=== PATIENT | male | born 1945 | race Caucasian/White ===

== ENCOUNTER → 2017-10-10 | Outpatient (CLI) | payer MEDICARE, OTHER ==
--- NOTE | 2017-10-10 18:46 | CT ---
EXAMINATION TYPE: CT abdomen pelvis wo con DATE OF EXAM: 10/10/2017 COMPARISON: NONE HISTORY: Diarrhea x1 month. CT DLP: 952 mGycm Automated exposure control for dose reduction was used. TECHNIQUE: Helical acquisition of images was performed from the lung bases through the pelvis. FINDINGS: There is coarse interstitial density at the posterior lung bases in the mainly the subpleural region with emphysematous bulla as well. There is no pleural effusion. Liver shows no focal defect. Gallbladder is contracted. Spleen appears normal. There is no pancreatic mass. There is no adrenal mass. Kidneys have normal size and contour. There is no hydronephrosis. Th ere is no retroperitoneal adenopathy. There is no ascites. Abdominal aorta is atheromatous. I see no intestinal wall thickening. There are no dilated loops. There are multiple diverticula in th e sigmoid colon. Prostate is enlarged. Bladder distends fairly smoothly. There is no evidence of dive rticulitis. There is no sign of free air. There are some spondylotic changes in the lumbar spine. There is 10% an terior wedging of T12 vertebral body that is probably old. Appendix is not seen. There is no sign of appendicitis. IMPRESSION: EMPHYSEMA AND PULMONARY INTERSTITIAL FIBROSIS. THERE IS SOME SIGMOID DIVERTICULOSIS WITHOUT SIGN OF DIVERTICULITIS. OLD MILD T12 COMPRESSION FRACTUR E. ATHEROSCLEROTIC VASCULAR DISEASE. 1 CM CORTICAL CYST IN THE POSTERIOR RIGHT KIDNEY NOTED.
== END | disposition home or self-care (01) ==
LOC: RADCTMAIN 18:09
PROVIDERS: ATTEND Family Medicine
DX: K57.30 Diverticulosis of large intestine without perforation or abscess without bleeding (principal); N28.1 Cyst of kidney, acquired
CPT/HCPCS: 74176

== ENCOUNTER → 2017-10-22 | Outpatient (CLI) | payer MEDICARE, OTHER ==
--- NOTE | 2017-10-22 15:32 | NM ---
EXAMINATION TYPE: NM hepatobiliary w EF DATE OF EXAM: 10/22/2017 COMPARISON: CT abdomen pelvis 10/10/2017 HISTORY: Cholelithiasis, K 80.80 TECHNIQUE: After the intravenous administration of 5.4 mCi Tc 99m Mebrofenin hepatobiliary scintigrap hy is performed. Immediate images post injection. FINDINGS: There is satisfactory initial accumulation of tracer by the liver. The gallbladder is visualized wit hin 6 minutes. The small bowel activity is noted within 10 minutes. At one hour 8 ounces of oral en sure plus is given to mimic CCK and gallbladder ejection fraction is calculated at 53 %, in the adam l range. Therefore there is no scintigraphic evidence of cystic or common bile duct obstruction to s uggest acute cholecystitis or gallbladder dyskinesia. IMPRESSION: Exam is within normal limits.
== END | disposition home or self-care (01) ==
LOC: RADNMMAIN 12:34
PROVIDERS: ATTEND Family Medicine
DX: K80.80 Other cholelithiasis without obstruction (principal); K58.9 Irritable bowel syndrome, unspecified
CPT/HCPCS: 78226; A9537

== ENCOUNTER 2017-11-08 10:08 | Day surgery (SDC) | payer MEDICARE, OTHER ==
[2017-11-07 11:22] VITALS: BMI 29.0
[2017-11-08 12:18] VITALS: TEMP 98.4
[2017-11-08] MEDS ORDERED: LACTATED RINGERS 1,000 ML IV ONE (12:25)
[2017-11-08] MEDS ORDERED: LIDOCAINE 1% 20 ML VIAL (10MG/ML) FOR IV START INTRADERMA ONE (12:26)
[2017-11-08] MEDS ORDERED: PROPOFOL 10 MG/ML 20 ML VIAL IV ONE (12:39)
--- NOTE | 2017-11-08 12:58 | P.PCN ---
Date of Procedure: 11/08/17 Procedure(s) Performed: BRIEF HISTORY: Patient is a 72-year-old pleasant white male scheduled for an elective colonoscopy as a part of evaluation of chronic diarrhea for the last 2 months duration. She has bowel movements anywhere from 4-5 a day which are loose to watery in consistency. He did have stool studies that were negative. CT of the abdomen and pelvis was unremarkable. He is hence scheduled for colonoscopy to evaluate further. PROCEDURE PERFORMED: Colonoscopy with biopsy. PREOPERATIVE DIAGNOSIS: Chronic diarrhea of 2 months duration. IV sedation per Anesthesia. PROCEDURE: After informed consent was obtained, the patient, was brought into the endoscopy unit. IV sedation was administered by Anesthesia under continuous monitoring. Digital rectal examination was normal. Initially the Olympus CF- 160 flexible video colonoscope was then inserted in the rectum, gradually advanced into the cecum without any difficulty. Careful examination was performed as the scope was gradually being withdrawn. Ileocecal valve and the appendiceal orifice were visualized and appeared normal. Prep was excellent. Mucosa of the cecum, ascending colon, transverse colon, descending colon, sigmoid colon, and rectum appeared normal. There was a 5 mL polyp in the sigmoid colon that was removed by biopsy. Random biopsies were done from ascending and descending colon to rule out microscopic/collagenous colitis. Retroflexion was performed in the rectum and no lesions were seen. Scattered sigmoid diverticulosis seen. The patient tolerated the procedure well. IMPRESSION: 5 mm above colon polyp status post removal by biopsy Scattered similar diverticulosis Rest of the colon appeared normal RECOMMENDATIONS: Findings of this examination were discussed with the patient as well as his family. He was advised to follow with the biopsy results. He' ll be seen in office in 2 weeks..
[2017-11-08 13:15] VITALS: BP 108/72; PULSE 70; RESP 18
== END 2017-11-08 13:45 | disposition home or self-care (01) ==
LOC: ORWHC2ENDO 10:08
PROVIDERS: ATTEND Internal Medicine Gastroenterology
DX: K52.832 Lymphocytic colitis (principal); K63.0 Abscess of intestine; K52.839 Microscopic colitis, unspecified; K62.89 Other specified diseases of anus and rectum; D12.5 Benign neoplasm of sigmoid colon; K57.30 Diverticulosis of large intestine without perforation or abscess without bleeding; I25.2 Old myocardial infarction; E78.5 Hyperlipidemia, unspecified; F41.9 Anxiety disorder, unspecified; F32.9 Major depressive disorder, single episode, unspecified; Z79.82 Long term (current) use of aspirin; Z79.899 Other long term (current) drug therapy
CPT/HCPCS: 88305; 45380; J2704

== ENCOUNTER → 2017-11-08 | Outpatient (CLI) | payer MEDICARE, OTHER ==
[2017-11-08 17:26] LABS: Gliadin AB IgA, Unit 0.4 U/mL
== END | disposition home or self-care (01) ==
LOC: LABWHC1 10:00
PROVIDERS: ATTEND Internal Medicine Gastroenterology
DX: K52.9 Noninfective gastroenteritis and colitis, unspecified (principal)
CPT/HCPCS: 36415; 83516; 85652; 86140

== ENCOUNTER → 2018-02-21 | Outpatient (CLI) | payer MEDICARE, OTHER | END | disposition home or self-care (01) | LOC: LABWHC1 10:17 | PROVIDERS: ATTEND Urology | DX: C61 Malignant neoplasm of prostate (principal) | CPT/HCPCS: 36415; 84153 ==

== ENCOUNTER 2018-03-25 16:19 | Inpatient (IN) | payer MEDICARE, OTHER ==
[2018-03-25] MEDS ORDERED: SODIUM CHLORIDE 0.9% 1,000 ML IV ONE (18:18)
--- NOTE | 2018-03-25 18:20 | ED ---
General Adult HPI - General Chief complaint: Shortness of Breath Stated complaint: Sent by PCP LASHAUN Time Seen by Provider: 03/25/18 17:26 Source: patient Mode of arrival: ambulatory Limitations: no limitations - History of Present Illness Initial comments: Gigi is a 72-year-old male who presents to the emergency department today for evaluation of multiple complaints. The patient reports that he is progressively become more weak, fatigued, lost his appetite, 15 pound weight loss - patient was seen by his PCP today and noted to be hypoxic with SpO2 of 86 % Patient reports that throughout the course of this week he has had intermittent fevers up to 102 at home, he said a minimally productive cough and felt very fatigued. He states he hasn't been eating or drinking well throughout the week. He states that Saturday was his 's birthday and he took her to eat at a restaurant usually can eat his entire meal but didn't even finish half of it and had to bring the rest home which he never ate because he just doesn't feel like eating or even getting out of bed. She denies any nausea, vomiting or abdominal pain but states he just doesn't feel like eating. He denies any change in bowel or bladder habits. He denies any chest pain but does feel that his heart is racing, and does have a cough but denies much shortness of breath. - Related Data Home Medications Medication Instructions Recorded Confirmed Aspirin [Adult Low Dose Aspirin EC] 81 mg PO DAILY 11/07/17 03/25/18 Citalopram Hydrobromide [CeleXA] 20 mg PO DAILY 11/07/17 03/25/18 Multivitamins, Thera [Multivitamin 1 tab PO DAILY 11/07/17 03/25/18 (formulary)] Simvastatin [Zocor] 20 mg PO DAILY 11/07/17 03/25/18 Temazepam [Restoril] 15 mg PO HS 11/07/17 03/25/18 Allergies Allergy/AdvReac Type Severity Reaction Status Date / Time No Known Allergies Allergy Verified 03/25/18 17:32 Review of Systems ROS Statement: Those systems with pertinent positive or pertinent negative responses have been documented in the HPI. ROS Other: All systems not noted in ROS Statement are negative. Constitutional: Reports: fever, chills ENT: Denies: epistaxis Respiratory: Reports: cough, dyspnea Cardiovascular: Reports: palpitations. Denies: chest pain Endocrine: Reports: fatigue Gastrointestinal: Reports: other (Anorexia). Denies: abdominal pain, nausea, vomiting Genitourinary: Denies: urgency, dysuria Musculoskeletal: Reports: back pain (Chronic) Skin: Denies: rash Neurological: Reports: weakness (Generalized). Denies: headache Psychiatric: Denies: anxiety Hematological/Lymphatic: Denies: easy bleeding, easy bruising Past Medical History Past Medical History: Cancer, Hyperlipidemia, Myocardial Infarction ([place]), Prostate Disorder Additional Past Medical History / Comment(s): diarrhea for past couple months, prostate cancer Last Myocardial Infarction Date:: 1982 History of Any Multi-Drug Resistant Organisms: None Reported Past Surgical History: Appendectomy Additional Past Surgical History / Comment(s): colonoscopy Past Anesthesia/Blood Transfusion Reactions: No Reported Reaction Past Psychological History: No Psychological Hx Reported Smoking Status: Former smoker - Past Family History Father Family Medical History: Cancer General Exam Limitations: no limitations General appearance: alert Head exam: Present: atraumatic, normocephalic Eye exam: Present: PERRL ENT exam: Present: normal exam Neck exam: Present: normal inspection Respiratory exam: Present: other (Tachypnea with crackles at bilateral bases) Cardiovascular Exam: Present: tachycardia GI/Abdominal exam: Present: soft. Absent: distended Rectal exam: Present: deferred Extremities exam: Present: normal inspection, normal capillary refill. Absent: pedal edema Back exam: Present: full ROM Psychiatric exam: Present: normal affect, normal mood Skin exam: Present: warm, dry Course Vital Signs 03/25/18 03/25/18 03/25/18 17:10 18:48 19:15 Temperature 99.0 F 100.4 F H Pulse Rate 91 90 90 Respiratory 18 18 18 Rate Blood Pressure 154/89 134/67 135/72 O2 Sat by Pulse 86 L 96 94 L Oximetry 03/25/18 03/25/18 20:19 22:05 Temperature 100.7 F H 99.0 F Pulse Rate 86 79 Respiratory 18 18 Rate Blood Pressure 139/76 134/68 O2 Sat by Pulse 95 95 Oximetry EKG Findings - EKG Comments: EKG Findings:: EKG - Rate 84, rhythm is normal sinus, normal axis,, NC 170, prolonged QRS 122, QTc 451. No evidence of acute ischemia or infarction. Procedures - Sepsis Sepsis Focused Exam #1 Time Sepsis Criteria Met: 19:44 Sepsis Focused Exam Complete: Yes Vital Signs & RN Notes Reviewed: Yes Capillary Refill: < 2 Seconds: Fingers, Toes Peripheral Pulses: Normal: Radial (R), Radial (L), Posterior Tibialis (R), Posterior Tibialis (L), Dorsalis Pedis (R), Dorsalis Pedis (L) Skin Color: Normal for Patient Cardiovascular Exam: tachycardia Medical Decision Making - Medical Decision Making The patient was seen and evaluated, history was obtained from the patient, review of medical record and call from his primary care physician With worsening fatigue, weight loss him and now has shortness of breath and is noted to be hypoxic to 86% on room air. Patient was started on supplemental oxygen at 2 L and noted to have improvement to 89-94%. Patient does have some oxygen desaturation with speaking but denies any shortness of breath. A broad range of labs and imaging were ordered for evaluation. 19:44 patient's labs and imaging were reviewed. Noted the patient has a right upper lobe pneumonia. In addition the patient's noted to have a leukocytosis and is now febrile with a fever of 100.4. Rocephin and azithromycin were ordered for treatment of community-acquired pneumonia At this time the patient has leukocytosis, fever and pneumonia as a source of infection. Considering the patient's tachycardia and hypoxia I will evaluate for a pulmonary embolism Patient care was discussed with Dr. Rodriguez agrees with plan for admission for sepsis secondary to community-acquired pneumonia, at the time of admission the CTA was not completed but I will follow up on it. UA reveals extensive emphysema but no evidence of pulmonary embolism - Lab Data Result diagrams: 03/25/18 17:40 03/25/18 17:40 Lab Results 03/25/18 03/25/18 03/25/18 Range/Units 17:40 17:40 17:40 WBC 11.7 H (3.8-10.6) k/uL RBC 5.65 (4.30-5.90) m/uL Hgb 16.7 (13.0-17.5) gm/dL Hct 50.2 (39.0-53.0) % MCV 88.8 (80.0-100.0) fL MCH 29.5 (25.0-35.0) pg MCHC 33.2 (31.0-37.0) g/dL RDW 13.1 (11.5-15.5) % Plt Count 466 H (150-450) k/uL Neutrophils % 71 % Lymphocytes % 17 % Monocytes % 7 % Eosinophils % 2 % Basophils % 1 % Neutrophils # 8.3 H (1.3-7.7) k/uL Lymphocytes # 2.0 (1.0-4.8) k/uL Monocytes # 0.8 (0-1.0) k/uL Eosinophils # 0.3 (0-0.7) k/uL Basophils # 0.1 (0-0.2) k/uL PT (9.0-12.0) sec INR (<1.2) APTT (22.0-30.0) sec Sodium 139 (137-145) mmol/L Potassium 4.9 (3.5-5.1) mmol/L Chloride 100 (98-107) mmol/L Carbon Dioxide 24 (22-30) mmol/L Anion Gap 15 mmol/L BUN 16 (9-20) mg/dL Creatinine 0.90 (0.66-1.25) mg/dL Est GFR (CKD-EPI)AfAm >90 (>60 ml/min/1.73 sqM) Est GFR (CKD-EPI)NonAf 86 (>60 ml/min/1.73 sqM) Glucose 91 (74-99) mg/dL Plasma Lactic Acid Nicko 1.4 (0.7-2.0) mmol/L Calcium 9.4 (8.4-10.2) mg/dL Magnesium 2.1 (1.6-2.3) mg/dL Total Bilirubin 0.6 (0.2-1.3) mg/dL AST 30 (17-59) U/L ALT 47 (21-72) U/L Alkaline Phosphatase 80 (38-126) U/L Troponin I (0.000-0.034) ng/mL NT-Pro-B Natriuret Pep pg/mL Total Protein 7.9 (6.3-8.2) g/dL Albumin 4.3 (3.5-5.0) g/dL Urine Color Urine Appearance (Clear) Urine pH (5.0-8.0) Ur Specific Perry (1.001-1.035) Urine Protein (Negative) Urine Glucose (UA) (Negative) Urine Ketones (Negative) Urine Blood (Negative) Urine Nitrite (Negative) Urine Bilirubin (Negative) Urine Urobilinogen (<2.0) mg/dL Ur Leukocyte Esterase (Negative) 03/25/18 03/25/18 03/25/18 Range/Units 17:40 17:40 17:40 WBC (3.8-10.6) k/uL RBC (4.30-5.90) m/uL Hgb (13.0-17.5) gm/dL Hct (39.0-53.0) % MCV (80.0-100.0) fL MCH (25.0-35.0) pg MCHC (31.0-37.0) g/dL RDW (11.5-15.5) % Plt Count (150-450) k/uL Neutrophils % % Lymphocytes % % Monocytes % % Eosinophils % % Basophils % % Neutrophils # (1.3-7.7) k/uL Lymphocytes # (1.0-4.8) k/uL Monocytes # (0-1.0) k/uL Eosinophils # (0-0.7) k/uL Basophils # (0-0.2) k/uL PT 10.8 (9.0-12.0) sec INR 1.1 (<1.2) APTT 24.5 (22.0-30.0) sec Sodium (137-145) mmol/L Potassium (3.5-5.1) mmol/L Chloride (98-107) mmol/L Carbon Dioxide (22-30) mmol/L Anion Gap mmol/L BUN (9-20) mg/dL Creatinine (0.66-1.25) mg/dL Est GFR (CKD-EPI)AfAm (>60 ml/min/1.73 sqM) Est GFR (CKD-EPI)NonAf (>60 ml/min/1.73 sqM) Glucose (74-99) mg/dL Plasma Lactic Acid Nicko (0.7-2.0) mmol/L Calcium (8.4-10.2) mg/dL Magnesium (1.6-2.3) mg/dL Total Bilirubin (0.2-1.3) mg/dL AST (17-59) U/L ALT (21-72) U/L Alkaline Phosphatase (38-126) U/L Troponin I <0.012 (0.000-0.034) ng/mL NT-Pro-B Natriuret Pep 129 pg/mL Total Protein (6.3-8.2) g/dL Albumin (3.5-5.0) g/dL Urine Color Urine Appearance (Clear) Urine pH (5.0-8.0) Ur Specific Perry (1.001-1.035) Urine Protein (Negative) Urine Glucose (UA) (Negative) Urine Ketones (Negative) Urine Blood (Negative) Urine Nitrite (Negative) Urine Bilirubin (Negative) Urine Urobilinogen (<2.0) mg/dL Ur Leukocyte Esterase (Negative) 03/25/18 Range/Units 19:18 WBC (3.8-10.6) k/uL RBC (4.30-5.90) m/uL Hgb (13.0-17.5) gm/dL Hct (39.0-53.0) % MCV (80.0-100.0) fL MCH (25.0-35.0) pg MCHC (31.0-37.0) g/dL RDW (11.5-15.5) % Plt Count (150-450) k/uL Neutrophils % % Lymphocytes % % Monocytes % % Eosinophils % % Basophils % % Neutrophils # (1.3-7.7) k/uL Lymphocytes # (1.0-4.8) k/uL Monocytes # (0-1.0) k/uL Eosinophils # (0-0.7) k/uL Basophils # (0-0.2) k/uL PT (9.0-12.0) sec INR (<1.2) APTT (22.0-30.0) sec Sodium (137-145) mmol/L Potassium (3.5-5.1) mmol/L Chloride (98-107) mmol/L Carbon Dioxide (22-30) mmol/L Anion Gap mmol/L BUN (9-20) mg/dL Creatinine (0.66-1.25) mg/dL Est GFR (CKD-EPI)AfAm (>60 ml/min/1.73 sqM) Est GFR (CKD-EPI)NonAf (>60 ml/min/1.73 sqM) Glucose (74-99) mg/dL Plasma Lactic Acid Nicko (0.7-2.0) mmol/L Calcium (8.4-10.2) mg/dL Magnesium (1.6-2.3) mg/dL Total Bilirubin (0.2-1.3) mg/dL AST (17-59) U/L ALT (21-72) U/L Alkaline Phosphatase (38-126) U/L Troponin I (0.000-0.034) ng/mL NT-Pro-B Natriuret Pep pg/mL Total Protein (6.3-8.2) g/dL Albumin (3.5-5.0) g/dL Urine Color Yellow Urine Appearance Clear (Clear) Urine pH 5.5 (5.0-8.0) Ur Specific Perry 1.012 (1.001-1.035) Urine Protein Negative (Negative) Urine Glucose (UA) Negative (Negative) Urine Ketones Negative (Negative) Urine Blood Negative (Negative) Urine Nitrite Negative (Negative) Urine Bilirubin Negative (Negative) Urine Urobilinogen <2.0 (<2.0) mg/dL Ur Leukocyte Esterase Negative (Negative) Disposition Clinical Impression: CAP (community acquired pneumonia), Sepsis, Emphysema lung, Hypoxia Disposition: ADMITTED IP TO THIS HOSP Referrals: Real Loving DO [Primary Care Provider] - 1-2 days Decision Time: 20:30
[2018-03-25 18:46] LABS: Basophils # (A) 0.1 k/uL (0-0.2); Basophils % (A) 1 %; Eosinophils # (A) 0.3 k/uL (0-0.7); Eosinophils % (A) 2 %; HCT 50.2 % (39.0-53.0); HGB 16.7 gm/dL (13.0-17.5); Lymphocytes % (A) 17 %; MCH 29.5 pg (25.0-35.0); MCHC 33.2 g/dL (31.0-37.0); MCV 88.8 fL (80.0-100.0); Mean Platelet Volume 6.4; Monocytes # (A) 0.8 k/uL (0-1.0); Monocytes % (A) 7 %; Neutrophils # (A) 8.3 k/uL (1.3-7.7); Neutrophils % (A) 71 %; Platelet Count 466 k/uL (150-450); RBC 5.65 m/uL (4.30-5.90); RDW 13.1 % (11.5-15.5); WBC 11.7 k/uL (3.8-10.6)
--- NOTE | 2018-03-25 18:50 | XR ---
EXAMINATION TYPE: XR chest 2V DATE OF EXAM: 03/25/2018 COMPARISON: NONE HISTORY: Difficulty breathing TECHNIQUE: Frontal and lateral views of the chest are obtained. FINDINGS: There is extensive coarse interstitial pulmonary infiltrates. There is some cholestatic d ensity in the right upper lobe. There is no heart failure. Heart size is normal. There is no pleural effusion. There are chest leads. Bony thorax is intact. IMPRESSION: Extensive pulmonary interstitial fibrosis. Acute pneumonia in the right upper lobe is po ssible.
[2018-03-25 18:57] LABS: INR 1.1 (<1.2); Partial Thromboplastin Time 24.5 sec (22.0-30.0); Prothrombin Time 10.8 sec (9.0-12.0)
[2018-03-25 19:06] LABS: ALT 47 U/L (21-72); AST 30 U/L (17-59); Albumin 4.3 g/dL (3.5-5.0); Alkaline Phosphatase 80 U/L (38-126); Anion Gap 15 mmol/L; Blood Urea Nitrogen 16 mg/dL (9-20); Calcium 9.4 mg/dL (8.4-10.2); Carbon Dioxide 24 mmol/L (22-30); Chloride 100 mmol/L (98-107); Glucose 91 mg/dL (74-99); Magnesium 2.1 mg/dL (1.6-2.3); Potassium 4.9 mmol/L (3.5-5.1); Sodium 139 mmol/L (137-145); Total Bilirubin 0.6 mg/dL (0.2-1.3); Total Protein 7.9 g/dL (6.3-8.2)
[2018-03-25 19:36] LABS: Appearance,Urine Clear (Clear); Bilirubin,Urine Negative (Negative); Blood,Urine Negative (Negative); Color,Urine Yellow; Glucose,Urine (UA) Negative (Negative); Ketones,Urine Negative (Negative); Leukocyte Esterase,Urine Negative (Negative); Nitrite,Urine Negative (Negative); PH, Urine 5.5 (5.0-8.0); Protein,Urine Negative (Negative); Specific Gravity,Urine 1.012 (1.001-1.035); Urobilinogen,Urine <2.0 mg/dL (<2.0)
[2018-03-25] MEDS ORDERED: AZITHROMYCIN 500 MG in DEXTROSE 5% IN WATER 250 ML IVPB STA ×2 (19:46)
[2018-03-25] MEDS ORDERED: cefTRIAXone IN SWFI 1,000 MG/10 ML SYRINGE IVP STA (19:46)
[2018-03-25] MEDS ORDERED: ACETAMINOPHEN TAB 500 MG TAB PO STA (20:25)
--- NOTE | 2018-03-25 20:53 | CT ---
EXAMINATION TYPE: CT chest angio for PE DATE OF EXAM: 03/25/2018 COMPARISON: None HISTORY: Difficulty breathing x1 week. CT DLP: 354.1 mGycm Automated exposure control for dose reduction was used. CONTRAST: CT Chest for pulmonary embolism performed with with IV Contrast, patient injected with 66ml mL of Iso pilo 370. FINDINGS: There are 3-D post processed images. There is extensive pulmonary interstitial fibrosis. There is pulmonary emphysema. There is some coale scent density in the lateral right upper lobe with extensive emphysema. There are enlarged paratracheal and bronchial lymph nodes that measure up to 2.2 cm. There is no sign of aortic aneurysm or dissection. There is normal contrast opacification of the pulmonary arteries. I see no filling defect. There is no pericardial effusion. There is no pleural effusion. There is small hiatal hernia. There i s some spurring in the thoracic spine. IMPRESSION: No evidence of pulmonary embolism. Advanced pulmonary interstitial fibrosis and emphysema.
[2018-03-25] MEDS ORDERED: ACETAMINOPHEN TAB 325 MG TAB PO PRN (22:54)
[2018-03-25] MEDS ORDERED: IBUPROFEN 400 MG TAB PO PRN (22:54)
[2018-03-25] MEDS ORDERED: NALOXONE 0.4 MG/ML 1 ML VIAL IV PRN (22:54)
[2018-03-25] MEDS ORDERED: SODIUM CHLORIDE 0.9% 1,000 ML IV SCH (23:00)
[2018-03-26 06:28] VITALS: BMI 27.0
[2018-03-26] MEDS ORDERED: IPRATROPIUM-ALBUTEROL 3 ML NEB INHALATION PRN (09:15)
[2018-03-26 09:39] LABS: Basophils # (A) 0.1 k/uL (0-0.2); Basophils % (A) 1 %; Eosinophils # (A) 0.3 k/uL (0-0.7); Eosinophils % (A) 3 %; HCT 44.2 % (39.0-53.0); HGB 15.1 gm/dL (13.0-17.5); Lymphocytes # (A) 1.4 k/uL (1.0-4.8); Lymphocytes % (A) 14 %; MCH 30.6 pg (25.0-35.0); MCHC 34.1 g/dL (31.0-37.0); MCV 89.8 fL (80.0-100.0); Mean Platelet Volume 6.5; Monocytes # (A) 0.5 k/uL (0-1.0); Monocytes % (A) 5 %; Neutrophils # (A) 7.7 k/uL (1.3-7.7); Neutrophils % (A) 77 %; Platelet Count 431 k/uL (150-450); RBC 4.93 m/uL (4.30-5.90); RDW 13.3 % (11.5-15.5); WBC 9.9 k/uL (3.8-10.6)
[2018-03-26 09:44] LABS: Anion Gap 10 mmol/L; Blood Urea Nitrogen 13 mg/dL (9-20); Calcium 8.7 mg/dL (8.4-10.2); Carbon Dioxide 23 mmol/L (22-30); Chloride 105 mmol/L (98-107); Glucose 149 mg/dL (74-99); Potassium 4.6 mmol/L (3.5-5.1); Sodium 138 mmol/L (137-145)
[2018-03-26] MEDS: cefTRIAXone IN SWFI 1,000 MG/10 ML SYRINGE IVP SCH (10:46)
[2018-03-26] MEDS: AZITHROMYCIN 500 MG TAB PO SCH (10:46)
[2018-03-26] MEDS: CITALOPRAM HYDROBROMIDE 20 MG TAB PO SCH (10:46)
[2018-03-26] MEDS: methylPREDNISolone SOD SUCCI 40 MG/ML 1 ML VIAL IV SCH ×2 (10:46→16:31)
--- NOTE | 2018-03-26 11:21 | P.HPIM ---
History of Present Illness H&P Date: 03/26/18 Chief Complaint: Fatigue, weakness, weight loss This is a 72-year-old male patient of Dr. Loving with past medical history of prostate cancer monitored by Dr. Huynh, myocardial infarction 40 years ago with no stent placement, hyperlipidemia, depression, remote history of tobacco use. Patient stopped taking his medication for lipids. Patient states that he has not been feeling well feeling tired and exhausted. He has had fever 1-2 days before he came in the hospital. He complains of shortness of breath when he walks to the mailbox which is been going on for a while. He denies ever being diagnosed with COPD or asthma. He has also had a weight loss of 15 pounds. Patient went to see his primary care physician today and was found to have a low pulse ox of 86% and was sent into [facility] emergency center for evaluation. His pulse ox was 86% on room air. EKG was a sinus rhythm with no acute ST-T wave changes. White count 11.7, lactic acid 1.4. ProBNP 129, troponin was negative. Urinalysis was negative. Chest x-ray showed extensive pulmonary interstitial fibrosis. Acute pneumonia in the right upper lobe is possible. CT angiogram of the chest revealed no evidence of pulmonary embolism. Advanced pulmonary interstitial fibrosis and emphysema. Patient was given a dose of azithromycin and ceftriaxone and admitted to the [facility] floor and consult requested with pulmonary medicine. Review of Systems All systems: negative Constitutional: Reports anorexia, Reports chills, Reports fatigue, Reports fever , Reports lethargy, Reports malaise, Reports poor appetite, Reports weight loss Eyes: denies blurred vision, denies pain Ears, nose, mouth and throat: Denies dental pain, Denies headache, Denies mouth pain, Denies sore throat, Denies vertigo Cardiovascular: Reports decreased exercise tolerance, Reports dyspnea on exertion, Denies chest pain, Denies leg edema, Denies shortness of breath, Denies syncope Respiratory: Reports cough, Reports dyspnea, Denies excessive sputum, Denies home oxygen, Denies wheezing Gastrointestinal: Reports loss of appetite, Denies abdominal pain, Denies diarrhea, Denies nausea, Denies vomiting Musculoskeletal: Denies myalgias Integumentary: Denies pruritus, Denies rash, Denies wounds Neurological: Denies numbness, Denies weakness Psychiatric: Denies anxiety, Denies depression Endocrine: Denies fatigue, Denies weight change Past Medical History Past Medical History: Cancer, Hyperlipidemia, Myocardial Infarction ([place]), Prostate Disorder Additional Past Medical History / Comment(s): prostate cancer, sees DR Huynh currently Last Myocardial Infarction Date:: 1982 History of Any Multi-Drug Resistant Organisms: None Reported Past Surgical History: Appendectomy Additional Past Surgical History / Comment(s): colonoscopy with Dr. Downs Past Anesthesia/Blood Transfusion Reactions: No Reported Reaction Past Psychological History: No Psychological Hx Reported, Depression Smoking Status: Former smoker Past Alcohol Use History: None Reported Additional Past Alcohol Use History / Comment(s): Patient was a smoker one pack per day for 20 years ago at about 35 years ago. He denies any marijuana or alcohol use. He is retired but works part-time. He is and lives at home with his . Past Drug Use History: None Reported - Past Family History Father Family Medical History: Cancer Additional Family Medical History / Comment(s): Father at age 65 from lymphoma. Mother Additional Family Medical History / Comment(s): Mother at age 85 with history of coronary artery disease. Patient has one sister who has had breast cancer. Patient has 1 son and 1 daughter with no major medical problems. Medications and Allergies Home Medications Medication Instructions Recorded Confirmed Type Aspirin [Adult Low Dose Aspirin EC] 81 mg PO DAILY 11/07/17 03/25/18 History Citalopram Hydrobromide [CeleXA] 20 mg PO DAILY 11/07/17 03/25/18 History Multivitamins, Thera [Multivitamin 1 tab PO DAILY 11/07/17 03/25/18 History (formulary)] Simvastatin [Zocor] 20 mg PO DAILY 11/07/17 03/25/18 History Temazepam [Restoril] 15 mg PO HS 11/07/17 03/25/18 History Allergies Allergy/AdvReac Type Severity Reaction Status Date / Time No Known Allergies Allergy Verified 03/25/18 17:32 Physical Exam Vitals: Vital Signs Temp Pulse Pulse Resp BP BP Pulse Ox 03/26/18 05:55 98.0 F 76 24 135/72 95 03/25/18 22:42 80 18 139/67 96 03/25/18 22:05 99.0 F 79 18 134/68 95 03/25/18 20:19 100.7 F H 86 18 139/76 95 03/25/18 19:15 100.4 F H 90 18 135/72 94 L 03/25/18 18:48 90 18 134/67 96 03/25/18 17:10 99.0 F 91 18 154/89 86 L Intake and Output 03/25/18 03/26/18 03/26/18 22:59 06:59 14:59 Other: # Voids 2 Weight 84.822 kg 83 kg Gen: This is a 72-year-old male. He is in bed and appears to be comfortable. No respiratory distress is noted. O2 is in place by nasal cannula. HEENT: Head is atraumatic, normocephalic. Pupils equal, round. Sclerae is anicteric. NECK: Supple. No JVD. No lymphadenopathy. No thyromegaly. LUNGS: Diminished. No intercostal retractions. HEART: Regular rate and rhythm. No murmur. ABDOMEN: Soft. Bowel sounds are present. No masses. No tenderness. EXTREMITIES: No pedal edema. No calf tenderness. NEUROLOGICAL: Patient is awake, alert and oriented x3. Cranial nerves 2 through 12 are grossly intact. Results CBC & Chem 7: 03/26/18 08:45 03/26/18 08:45 Labs: Abnormal Lab Results - Last 24 Hours (Table) 03/25/18 Range/Units 17:40 WBC 11.7 H (3.8-10.6) k/uL Plt Count 466 H (150-450) k/uL Neutrophils # 8.3 H (1.3-7.7) k/uL Thrombosis Risk Factor Assmnt - DVT/VTE Prophylaxis DVT/VTE Prophylaxis: Pharmacologic Prophylaxis ordered - Choose All That Apply Any of the Below Risk Factors Present?: Yes Other Risk Factors: Yes Each Risk Factor Represents 2 Points: Age 61-74 years Thrombosis Risk Factor Assessment Total Risk Factor Score: 2 Thrombosis Risk Factor Assessment Level: Low Risk Assessment and Plan Plan: 1. Acute hypoxic respiratory failure secondary to possible right upper lobe pneumonia, pulmonary fibrosis, possible COPD. Patient will be started on is a 3 January 12 and ceftriaxone, DuoNeb treatments, Solu-Medrol IV. Consult with Dr. Sanderson. 2. Advanced pulmonary interstitial fibrosis on CAT scan a previously diagnosed. Consult with pulmonary medicine continue as in #1. 3. Hyperlipidemia. Patient will be resumed on statin. 4. History of myocardial infarction many years ago. Aspirin resumed. 5. Depression, recurrent. Patient resumed on Celexa. 6. Insomnia. Restoril 50 mg at bedtime. 7. Recent unexplained weight loss of 15 pounds, possibly related to interstitial lung fibrosis and COPD. Patient may need further workup as an outpatient to rule out any underlying malignancy. 8. DVT prophylaxis. Heparin subcu. 9. GI prophylaxis. Pepcid. Patient will be admitted to the hospital for a minimum of 2 night stay. Discharge plan: Return home Impression and plan of care have been directed as dictated by the signing physician. Jodee Joya nurse practitioner acting as scribe for signing physician.
[2018-03-26] MEDS: HEPARIN SODIUM,PORCINE 5,000 UNIT/ML 1 ML VIAL SQ SCH (16:31)
--- NOTE | 2018-03-26 19:28 | P.CNPUL ---
History of Present Illness Consult date: 03/26/18 Reason for consult: cough, pneumonia, other Chief complaint: Weakness, fever, fatigue, productive cough History of present illness: Mr. De La Torre is a 72-year-old white male patient of Dr. Dutton who presented to the emergency department on 03/25/2018 with complaints of a week's worth of constitutional symptoms such as progressive weakness, fatigue, loss of appetite, fever, chills, weight loss related to poor oral intake. In addition patient had productive cough, and his fevers were as high as 102F at home. Patient went to see his primary care provider, and was noted to be hypoxic with SpO2 of 86%, and he was sent to the ER for further evaluation. Chest x-ray showed extensive pulmonary interstitial fibrosis, and acute pneumonia in the right upper lobe was suspected based on cholestatic density in the right upper lobe. CT angios was completed and showed no evidence of pulmonary embolism, but it showed advanced pulmonary interstitial fibrosis, emphysema, and coalescent density in the lateral right upper lobe. Patient did have a low- grade fevers of 100.7F initially, is afebrile today. White count was 11.7, hemoglobin is 16.7, electrolytes and renal profile were within normal limits, urinalysis is noninfected. Troponins and proBNP negative. EKG showed normal sinus rhythm with left bundle branch block. She was started on empiric antibiotics in the form of Rocephin and Zithromax, started on nebulized bronchodilators, IV steroids, and admitted for further management. Patient gives a medical history of myocardial infarction, prostate cancer being followed by Dr. Huynh, hyperlipidemia, ex-smoker, patient carries [id number] smoking history, quit smoking 25-30 years ago. Normally not on oxygen, or any inhalers. We're asked to see the patient in consultation for acute right upper lobe pneumonia, as pulmonary fibrosis. Review of Systems All systems: negative Constitutional: Denies chills, Denies fever Eyes: denies blurred vision, denies pain Ears, nose, mouth and throat: Denies headache, Denies sore throat Cardiovascular: Denies chest pain, Denies shortness of breath Respiratory: Denies cough Gastrointestinal: Denies abdominal pain, Denies diarrhea, Denies nausea, Denies vomiting Musculoskeletal: Denies myalgias Integumentary: Denies pruritus, Denies rash Neurological: Denies numbness, Denies weakness Psychiatric: Denies anxiety, Denies depression Endocrine: Denies fatigue, Denies weight change Past Medical History Past Medical History: Cancer, Hyperlipidemia, Myocardial Infarction ([place]), Prostate Disorder Additional Past Medical History / Comment(s): prostate cancer, sees DR Huynh currently Last Myocardial Infarction Date:: 1982 History of Any Multi-Drug Resistant Organisms: None Reported Past Surgical History: Appendectomy Additional Past Surgical History / Comment(s): colonoscopy with Dr. Downs Past Anesthesia/Blood Transfusion Reactions: No Reported Reaction Past Psychological History: No Psychological Hx Reported, Depression Smoking Status: Former smoker Past Alcohol Use History: None Reported Additional Past Alcohol Use History / Comment(s): Patient was a smoker one pack per day for 20 years ago at about 35 years ago. He denies any marijuana or alcohol use. He is retired but works part-time. He is and lives at home with his . Past Drug Use History: None Reported - Past Family History Father Family Medical History: Cancer Additional Family Medical History / Comment(s): Father at age 65 from lymphoma. Mother Additional Family Medical History / Comment(s): Mother at age 85 with history of coronary artery disease. Patient has one sister who has had breast cancer. Patient has 1 son and 1 daughter with no major medical problems. Medications and Allergies Home Medications Medication Instructions Recorded Confirmed Type Aspirin [Adult Low Dose Aspirin EC] 81 mg PO DAILY 11/07/17 03/25/18 History Citalopram Hydrobromide [CeleXA] 20 mg PO DAILY 11/07/17 03/25/18 History Multivitamins, Thera [Multivitamin 1 tab PO DAILY 11/07/17 03/25/18 History (formulary)] Simvastatin [Zocor] 20 mg PO DAILY 11/07/17 03/25/18 History Temazepam [Restoril] 15 mg PO HS 11/07/17 03/25/18 History Allergies Allergy/AdvReac Type Severity Reaction Status Date / Time No Known Allergies Allergy Verified 03/25/18 17:32 Physical Exam Vitals: Vital Signs Temp Pulse Pulse Resp BP BP Pulse Ox 03/26/18 15:00 98.5 F 79 16 117/59 94 L 03/26/18 05:55 98.0 F 76 24 135/72 95 03/25/18 22:42 80 18 139/67 96 03/25/18 22:05 99.0 F 79 18 134/68 95 03/25/18 20:19 100.7 F H 86 18 139/76 95 03/25/18 19:15 100.4 F H 90 18 135/72 94 L Intake and Output 03/26/18 03/26/18 03/26/18 06:59 14:59 22:59 Other: # Voids 2 2 Weight 83 kg GENERAL EXAM: Alert, pleasant, 72-year-old white male comfortable in no apparent distress. HEAD: Normocephalic/atraumatic. EYES: Normal reaction of pupils, equal size. Conjunctiva pink, sclera white. NOSE: Clear with pink turbinates. THROAT: No erythema or exudates. NECK: No masses, no JVD, no thyroid enlargement, no adenopathy. CHEST: No chest wall deformity. Symmetrical expansion. LUNGS: Equal air entry with mild crackles over right lower lobe CVS: Regular rate and rhythm, normal S1 and S2, no gallops, soft systolic murmur noted at the left sternal border in the fourth intercostal space ABDOMEN: Soft, nontender. No hepatosplenomegaly, normal bowel sounds, no guarding or rigidity. EXTREMITIES: No clubbing, no edema, no cyanosis, 2+ pulses and upper and lower extremities. MUSCULOSKELETAL: Muscle strength and tone normal. SPINE: No scoliosis or deformity SKIN: No rashes CENTRAL NERVOUS SYSTEM: Alert and oriented -3. No focal deficits, tone is normal in all 4 extremities. PSYCHIATRIC: Alert and oriented -3. Appropriate affect. Intact judgment and insight. Results - Laboratory Findings CBC and BMP: 03/26/18 08:45 03/26/18 08:45 PT/INR, D-dimer PT 10.8 sec (9.0-12.0) 03/25/18 17:40 INR 1.1 (<1.2) 03/25/18 17:40 Abnormal lab findings: Abnormal Labs 03/25/18 03/26/18 17:40 08:45 WBC 11.7 H Plt Count 466 H Neutrophils # 8.3 H Glucose 149 H - Diagnostic Findings Chest x-ray: report reviewed, image reviewed CT scan - chest: report reviewed, image reviewed Additional studies: EKG reviewed Assessment and Plan Plan: Assessment: #1. Acute right upper lobe pneumonia, community-acquired #2. Acute hypoxemic respiratory failure related to the above #3. Weakness, fatigue, fever, decreased appetite related to the above #4. Pulmonary fibrosis, seen on the CT angios, this was compared to prior CT of abdomen and pelvis from 10/10/2017 and there was presence of pulmonary fibrosis of the bases of the lungs #5. COPD #6. Remote history of nicotine dependence, patient carries [id number] smoking history #7. History of myocardial infarction #8. Prostate cancer, this is being followed by a urologist Plan: Continue current antibiotic coverage, continue nebulized bronchodilators. Will schedule bronchoscopy with BAL on this patient to obtain lower airway samples and rule out a possibility of an underlying malignancy. Continue with current medical treatment for now. I performed a history & physical examination of the patient and discussed their management with my nurse practitioner, Reena Hawk. I reviewed the nurse practitioner's note and agree with the documented findings and plan of care. Lung sounds are diminished lung sounds, and limited crackles over right lower lobe. The findings and the impression was discussed with the patient. I attest to the documentation by the nurse practitioner. Time with Patient: Greater than 30
[2018-03-26] MEDS: ATORVASTATIN 10 MG TAB PO SCH (21:04)
[2018-03-26] MEDS: TEMAZEPAM 15 MG CAP PO SCH (21:06)
[2018-03-27] MEDS: HEPARIN SODIUM,PORCINE 5,000 UNIT/ML 1 ML VIAL SQ SCH ×3 (01:32→15:44)
[2018-03-27] MEDS: CITALOPRAM HYDROBROMIDE 20 MG TAB PO SCH (08:51)
[2018-03-27] MEDS: ASPIRIN 81 MG PO SCH (08:51)
[2018-03-27] MEDS: cefTRIAXone IN SWFI 1,000 MG/10 ML SYRINGE IVP SCH (08:51)
[2018-03-27] MEDS: MULTIVITAMINS, THERA 1 EACH TAB PO SCH (08:51)
[2018-03-27] MEDS: predniSONE 20 MG TAB PO SCH (08:51)
[2018-03-27] MEDS: FAMOTIDINE 20 MG TAB PO SCH (08:51)
[2018-03-27] MEDS: AZITHROMYCIN 500 MG TAB PO SCH (08:51)
--- NOTE | 2018-03-27 13:08 | P.PN ---
Subjective Progress Note Date: 03/27/18 This is a 72-year-old male patient of Dr. Loving with past medical history of prostate cancer monitored by Dr. Huynh, myocardial infarction 40 years ago with no stent placement, hyperlipidemia, depression, remote history of tobacco use. Patient stopped taking his medication for lipids. Patient states that he has not been feeling well feeling tired and exhausted. He has had fever 1-2 days before he came in the hospital. He complains of shortness of breath when he walks to the mailbox which is been going on for a while. He denies ever being diagnosed with COPD or asthma. He has also had a weight loss of 15 pounds. Patient went to see his primary care physician today and was found to have a low pulse ox of 86% and was sent into [facility] emergency center for evaluation. His pulse ox was 86% on room air. EKG was a sinus rhythm with no acute ST-T wave changes. White count 11.7, lactic acid 1.4. ProBNP 129, troponin was negative. Urinalysis was negative. Chest x-ray showed extensive pulmonary interstitial fibrosis. Acute pneumonia in the right upper lobe is possible. CT angiogram of the chest revealed no evidence of pulmonary embolism. Advanced pulmonary interstitial fibrosis and emphysema. Patient was given a dose of azithromycin and ceftriaxone and admitted to the [facility] floor and consult requested with pulmonary medicine. 03/27: Patient is anxious to be discharged home today after he has bronchoscopy scheduled for this afternoon. Room air pulse-ox to be checked for home O2 need. Objective - Vital Signs Vital signs: Vital Signs Temp 96.6 F L 03/27/18 06:00 Pulse 73 03/27/18 06:00 Resp 18 03/27/18 06:00 BP 118/60 03/27/18 06:00 Pulse Ox 98 03/27/18 06:00 Intake & Output 03/26/18 03/27/18 03/27/18 18:59 06:59 18:59 Output Total 400 Balance -400 Output: Urine 400 Other: Voiding Method Toilet # Voids 2 1 - Exam Gen: This is a 72-year-old male. He is in bed and appears to be comfortable. No respiratory distress is noted. O2 is in place by nasal cannula. HEENT: Head is atraumatic, normocephalic. Pupils equal, round. Sclerae is anicteric. NECK: Supple. No JVD. No lymphadenopathy. No thyromegaly. LUNGS: Diminished. No intercostal retractions. HEART: Regular rate and rhythm. No murmur. ABDOMEN: Soft. Bowel sounds are present. No masses. No tenderness. EXTREMITIES: No pedal edema. No calf tenderness. NEUROLOGICAL: Patient is awake, alert and oriented x3. Cranial nerves 2 through 12 are grossly intact. - Labs CBC & Chem 7: 03/26/18 08:45 03/26/18 08:45 Labs: Microbiology - Last 24 Hours (Table) 03/25/18 17:40 Blood Culture - Preliminary Blood No Growth after 24 hours Assessment and Plan Plan: 1. Acute hypoxic respiratory failure secondary to possible right upper lobe pneumonia, pulmonary fibrosis, possible COPD. Patient will be started on is a 3 January 12 and ceftriaxone, DuoNeb treatments, Solu-Medrol IV. Consult with Dr. Sanderson. Bronchoscopy today. 2. Advanced pulmonary interstitial fibrosis on CAT scan a previously diagnosed. Consult with pulmonary medicine continue as in #1. 3. Hyperlipidemia. Patient will be resumed on statin. 4. History of myocardial infarction many years ago. Aspirin resumed. 5. Depression, recurrent. Patient resumed on Celexa. 6. Insomnia. Restoril 50 mg at bedtime. 7. Recent unexplained weight loss of 15 pounds, possibly related to interstitial lung fibrosis and COPD. Patient may need further workup as an outpatient to rule out any underlying malignancy. 8. DVT prophylaxis. Heparin subcu. 9. GI prophylaxis. Pepcid. Discharge plan: Return home Impression and plan of care have been directed as dictated by the signing physician. Jodee Joya nurse practitioner acting as scribe for signing physician.
--- NOTE | 2018-03-27 13:29 | P.PN ---
Subjective Progress Note Date: 03/27/18 Principal diagnosis: Acute right upper lobe pneumonia, community-acquired, acute hypoxemic restaurant failure related to pneumonia Mr. De La Torre is a 72-year-old white male patient of Dr. Dutton who presented to the emergency department on 03/25/2018 with complaints of a week's worth of constitutional symptoms such as progressive weakness, fatigue, loss of appetite, fever, chills, weight loss related to poor oral intake. In addition patient had productive cough, and his fevers were as high as 102F at home. Patient went to see his primary care provider, and was noted to be hypoxic with SpO2 of 86%, and he was sent to the ER for further evaluation. Chest x-ray showed extensive pulmonary interstitial fibrosis, and acute pneumonia in the right upper lobe was suspected based on cholestatic density in the right upper lobe. CT angios was completed and showed no evidence of pulmonary embolism, but it showed advanced pulmonary interstitial fibrosis, emphysema, and coalescent density in the lateral right upper lobe. Patient did have a low- grade fevers of 100.7F initially, is afebrile today. White count was 11.7, hemoglobin is 16.7, electrolytes and renal profile were within normal limits, urinalysis is noninfected. Troponins and proBNP negative. EKG showed normal sinus rhythm with left bundle branch block. She was started on empiric antibiotics in the form of Rocephin and Zithromax, started on nebulized bronchodilators, IV steroids, and admitted for further management. Patient gives a medical history of myocardial infarction, prostate cancer being followed by Dr. Huynh, hyperlipidemia, ex-smoker, patient carries [id number] smoking history, quit smoking 25-30 years ago. Normally not on oxygen, or any inhalers. We're asked to see the patient in consultation for acute right upper lobe pneumonia, as pulmonary fibrosis. On 03/27/2018 patient seen again in follow-up on medical surgical floor. He is resting comfortably in bed, denies any acute distress, pulse ox on 2 L per nasal cannula is 98%, he is afebrile. Blood culture is negative thus far, patient is being treated with empiric antibiotics in the form of Rocephin and Zithromax. He denies any dyspnea, denies any chest wall tenderness, denies any phlegm production, no worsening chest congestion. Today's lab work shows WBC of 9.9, hemoglobin of 15.1, electrolytes and renal profile are all within normal limits. We spoke to the patient regarding a bronchoscopy with BAL in regards to the right upper lobe density, suspicious for pneumonia, and this will be done for collection of lower airway sputum samples as well as investigating for underlying malignancy. The patient is in agreement, and would like to proceed. He is scheduled for today, and he has been nothing by mouth since midnight Objective - Vital Signs Vital signs: Vital Signs Temp 96.6 F L 03/27/18 06:00 Pulse 73 03/27/18 06:00 Resp 18 03/27/18 06:00 BP 118/60 03/27/18 06:00 Pulse Ox 98 03/27/18 06:00 Intake & Output 03/26/18 03/27/18 03/27/18 18:59 06:59 18:59 Output Total 400 Balance -400 Output: Urine 400 Other: Voiding Method Toilet # Voids 2 1 - Exam GENERAL EXAM: Alert, pleasant, 72-year-old white male comfortable in no apparent distress. HEAD: Normocephalic/atraumatic. EYES: Normal reaction of pupils, equal size. Conjunctiva pink, sclera white. NOSE: Clear with pink turbinates. THROAT: No erythema or exudates. NECK: No masses, no JVD, no thyroid enlargement, no adenopathy. CHEST: No chest wall deformity. Symmetrical expansion. LUNGS: Equal air entry with mild crackles over right lower lobe CVS: Regular rate and rhythm, normal S1 and S2, no gallops, soft systolic murmur noted at the left sternal border in the fourth intercostal space ABDOMEN: Soft, nontender. No hepatosplenomegaly, normal bowel sounds, no guarding or rigidity. EXTREMITIES: No clubbing, no edema, no cyanosis, 2+ pulses and upper and lower extremities. MUSCULOSKELETAL: Muscle strength and tone normal. SPINE: No scoliosis or deformity SKIN: No rashes CENTRAL NERVOUS SYSTEM: Alert and oriented -3. No focal deficits, tone is normal in all 4 extremities. PSYCHIATRIC: Alert and oriented -3. Appropriate affect. Intact judgment and insight. - Labs CBC & Chem 7: 03/26/18 08:45 03/26/18 08:45 Labs: Microbiology - Last 24 Hours (Table) 03/25/18 17:40 Blood Culture - Preliminary Blood No Growth after 24 hours Assessment and Plan Plan: Assessment: #1. Acute right upper lobe pneumonia, community-acquired #2. Acute hypoxemic respiratory failure related to the above #3. Weakness, fatigue, fever, decreased appetite related to the above #4. Pulmonary fibrosis, seen on the CT angios, this was compared to prior CT of abdomen and pelvis from 10/10/2017 and there was presence of pulmonary fibrosis of the bases of the lungs #5. COPD #6. Remote history of nicotine dependence, patient carries [id number] smoking history #7. History of myocardial infarction #8. Prostate cancer, this is being followed by a urologist Plan: Continue current antibiotic coverage, continue nebulized treatments, cultures remain negative thus far, we will proceed with bronchoscopy today. Overall patient feeling better, is stable, and is hoping to be able to go home possibly in next 24 hours. I performed a history & physical examination of the patient and discussed their management with my nurse practitioner, Reena Hawk. I reviewed the nurse practitioner's note and agree with the documented findings and plan of care. Lung sounds are diminished lung sounds, and limited crackles over right lower lobe. The findings and the impression was discussed with the patient. I attest to the documentation by the nurse practitioner. Time with Patient: Less than 30
[2018-03-27] MEDS ORDERED: PROPOFOL 10 MG/ML 20 ML VIAL IV ONE (14:19)
[2018-03-27] MEDS ORDERED: IV FLUID CONTINUATION 1,000 ML IV ONE (14:19)
[2018-03-27] MEDS ORDERED: LIDOCAINE 1% INJ 10MG/ML (20 ML MDV) ONE (14:19)
[2018-03-27] MEDS ORDERED: LIDOCAINE 1% INJ 10MG/ML (20 ML MDV) INTRATRACH ONE (14:23)
--- NOTE | 2018-03-27 17:07 | PCN ---
PROCEDURE NOTE OPERATIVE REPORT: Bronchoscopy and bronchoalveolar lavage of the right upper lobe, mostly the anterior segment of the right upper lobe. PREOPERATIVE DIAGNOSIS: Right upper lobe pneumonia. POSTOPERATIVE DIAGNOSIS: Right upper lobe pneumonia. ANESTHESIA USED: IV conscious sedation. Please refer to [employer] documentation. PROCEDURE: The patient was prepared according to the bronchoscopy protocol. The patient was placed in the supine position. O2 was applied via Ventimask. We monitored his O2 saturation continuously. Blood pressure was intermittently monitored, and cardiac rhythm was continuously monitored. After adequate IV conscious sedation, 2 mL of lidocaine was instilled into the left naris, and the bronchoscope was advanced through the left naris down to the area of the vocal cords. The cords were noted to be patent. Lidocaine applied over the vocal cords. The bronchoscope was advanced further down to the trachea. Thorough examination done of the trachea, fox, right upper lobe, right middle lobe, right lower lobe, left upper lobe lingula and left lower lobe. Mucosa was noted to be slightly bronchitic, there was no evidence of purulent material noted in the airways. Then the bronchoscope was wedged into the anterior segment of the right upper lobe, and lavage of the right upper lobe was performed. The fluid was sent for different diagnostic studies including cytology and including cultures. The procedure was well tolerated and no evidence of any immediate complications. MMODL / IJN: [id number] /
[2018-03-27 18:48] LABS: Appearance,BF Cloudy; Color,BF Colorless
[2018-03-27] MEDS: ATORVASTATIN 10 MG TAB PO SCH (20:40)
[2018-03-27] MEDS: TEMAZEPAM 15 MG CAP PO SCH (20:40)
[2018-03-27 21:55] LABS: Nucleated Cells, Body Fluid 82 /uL; RBC, Body Fluid 287 /uL
[2018-03-27 22:01] LABS: Mononuclear WBC,Body Fluid 9 %; Polynuclear WBC,Body Fluid 90 %; Total Cells Counted,Body Fluid 100
[2018-03-28] MEDS ORDERED: HEPARIN SODIUM,PORCINE 5,000 UNIT/ML 1 ML VIAL ONE
[2018-03-28] MEDS: HEPARIN SODIUM,PORCINE 5,000 UNIT/ML 1 ML VIAL SQ SCH ×2 (04:49→07:55)
[2018-03-28 06:25] VITALS: BP 130/75; RESP 18; TEMP 98
[2018-03-28] MEDS: predniSONE 20 MG TAB PO SCH (07:55)
[2018-03-28] MEDS: FAMOTIDINE 20 MG TAB PO SCH (07:55)
[2018-03-28] MEDS: AZITHROMYCIN 500 MG TAB PO SCH (07:55)
[2018-03-28] MEDS: ASPIRIN 81 MG PO SCH (07:55)
[2018-03-28] MEDS: MULTIVITAMINS, THERA 1 EACH TAB PO SCH (07:55)
[2018-03-28] MEDS: CITALOPRAM HYDROBROMIDE 20 MG TAB PO SCH (07:55)
[2018-03-28] MEDS: cefTRIAXone IN SWFI 1,000 MG/10 ML SYRINGE IVP SCH (08:08)
--- NOTE | 2018-03-28 12:20 | P.PN ---
Subjective Progress Note Date: 03/28/18 Principal diagnosis: Acute right upper lobe pneumonia, community-acquired, acute hypoxemic restaurant failure related to pneumonia Mr. De La Torre is a 72-year-old white male patient of Dr. Dutton who presented to the emergency department on 03/25/2018 with complaints of a week's worth of constitutional symptoms such as progressive weakness, fatigue, loss of appetite, fever, chills, weight loss related to poor oral intake. In addition patient had productive cough, and his fevers were as high as 102F at home. Patient went to see his primary care provider, and was noted to be hypoxic with SpO2 of 86%, and he was sent to the ER for further evaluation. Chest x-ray showed extensive pulmonary interstitial fibrosis, and acute pneumonia in the right upper lobe was suspected based on cholestatic density in the right upper lobe. CT angios was completed and showed no evidence of pulmonary embolism, but it showed advanced pulmonary interstitial fibrosis, emphysema, and coalescent density in the lateral right upper lobe. Patient did have a low- grade fevers of 100.7F initially, is afebrile today. White count was 11.7, hemoglobin is 16.7, electrolytes and renal profile were within normal limits, urinalysis is noninfected. Troponins and proBNP negative. EKG showed normal sinus rhythm with left bundle branch block. She was started on empiric antibiotics in the form of Rocephin and Zithromax, started on nebulized bronchodilators, IV steroids, and admitted for further management. Patient gives a medical history of myocardial infarction, prostate cancer being followed by Dr. Huynh, hyperlipidemia, ex-smoker, patient carries [id number] smoking history, quit smoking 25-30 years ago. Normally not on oxygen, or any inhalers. We're asked to see the patient in consultation for acute right upper lobe pneumonia, as pulmonary fibrosis. On 03/27/2018 patient seen again in follow-up on medical surgical floor. He is resting comfortably in bed, denies any acute distress, pulse ox on 2 L per nasal cannula is 98%, he is afebrile. Blood culture is negative thus far, patient is being treated with empiric antibiotics in the form of Rocephin and Zithromax. He denies any dyspnea, denies any chest wall tenderness, denies any phlegm production, no worsening chest congestion. Today's lab work shows WBC of 9.9, hemoglobin of 15.1, electrolytes and renal profile are all within normal limits. We spoke to the patient regarding a bronchoscopy with BAL in regards to the right upper lobe density, suspicious for pneumonia, and this will be done for collection of lower airway sputum samples as well as investigating for underlying malignancy. The patient is in agreement, and would like to proceed. He is scheduled for today, and he has been nothing by mouth since midnight On 03/28/2018 patient seen in follow-up. Patient is awake alert, denies any distress, he reports breathing easier, he is upbeat and energetic, he has been ambulating and tolerating activity well. He remains on 2 L per nasal cannula and his pulse ox is 96%, he will need a home oxygen evaluation. He may require home oxygen based on his diagnosis of pulmonary fibrosis, and acute right upper lobe pneumonia. He remains afebrile, as today he underwent bronchoscopy with BAL, and bronch wash cultures are pending. He remains on the combination of Zithromax and Rocephin, nebulized bronchodilators, and oral steroids. He had significantly improved, and he is requesting to go home today. Objective - Vital Signs Vital signs: Vital Signs Temp 98.0 F 03/28/18 06:24 Pulse 72 03/28/18 06:24 Resp 18 03/28/18 06:24 BP 130/75 03/28/18 06:24 Pulse Ox 96 03/28/18 06:24 Intake & Output 03/27/18 03/28/18 03/28/18 18:59 06:59 18:59 Intake Total 300 200 Output Total 225 500 Balance 75 -500 200 Intake: IV 300 Oral 200 Output: Urine 225 500 Other: Voiding Method Toilet Urinal # Voids 1 - Exam GENERAL EXAM: Alert, pleasant, 72-year-old white male comfortable in no apparent distress. HEAD: Normocephalic/atraumatic. EYES: Normal reaction of pupils, equal size. Conjunctiva pink, sclera white. NOSE: Clear with pink turbinates. THROAT: No erythema or exudates. NECK: No masses, no JVD, no thyroid enlargement, no adenopathy. CHEST: No chest wall deformity. Symmetrical expansion. LUNGS: Equal air entry with mild crackles over right lower lobe CVS: Regular rate and rhythm, normal S1 and S2, no gallops, soft systolic murmur noted at the left sternal border in the fourth intercostal space ABDOMEN: Soft, nontender. No hepatosplenomegaly, normal bowel sounds, no guarding or rigidity. EXTREMITIES: No clubbing, no edema, no cyanosis, 2+ pulses and upper and lower extremities. MUSCULOSKELETAL: Muscle strength and tone normal. SPINE: No scoliosis or deformity SKIN: No rashes CENTRAL NERVOUS SYSTEM: Alert and oriented -3. No focal deficits, tone is normal in all 4 extremities. PSYCHIATRIC: Alert and oriented -3. Appropriate affect. Intact judgment and insight. - Labs CBC & Chem 7: 03/26/18 08:45 03/26/18 08:45 Labs: Microbiology - Last 24 Hours (Table) 03/25/18 17:40 Blood Culture - Preliminary Blood No Growth after 48 hours Assessment and Plan Plan: Assessment: #1. Acute right upper lobe pneumonia, community-acquired #2. Acute hypoxemic respiratory failure related to the above #3. Weakness, fatigue, fever, decreased appetite related to the above #4. Pulmonary fibrosis, seen on the CT angios, this was compared to prior CT of abdomen and pelvis from 10/10/2017 and there was presence of pulmonary fibrosis of the bases of the lungs #5. COPD #6. Remote history of nicotine dependence, patient carries [id number] smoking history #7. History of myocardial infarction #8. Prostate cancer, this is being followed by a urologist Plan: Patient is doing well, vital signs are stable, no chest ingestion, no phlegm production, no fever, no chills. Bronchial wash cultures are pending, blood cultures remain negative, patient has been treated with a combination of Zithromax and Rocephin. Improved. From pulmonary standpoint patient could be discharged home today on an oral course of antibiotics. He will need follow-up with Dr. Sanderson any office in 7-10 days. I performed a history & physical examination of the patient and discussed their management with my nurse practitioner, Reena Hawk. I reviewed the nurse practitioner's note and agree with the documented findings and plan of care. Lung sounds are diminished lung sounds, and limited crackles over right lower lobe. The findings and the impression was discussed with the patient. I attest to the documentation by the nurse practitioner. Time with Patient: Less than 30
[2018-03-28 12:39] VITALS: PULSE 93
--- NOTE | 2018-03-28 14:17 | P.DS ---
Providers Date of admission: 03/26/18 00:30 Expected date of discharge: 03/28/18 Attending physician: Tamir Rodriguez Consults: 03/25/18 22:55 Consult Physician Routine Consulting Provider: Rajendra Martin Consult Reason/Comments: emphysema, pneumonia Do you want consulting provider notified?: Yes [facility] care physician: [facility]: This is a 72-year-old male patient of Dr. Loving with past medical history of prostate cancer monitored by Dr. Huynh, myocardial infarction 40 years ago with no stent placement, hyperlipidemia, depression, remote history of tobacco use. Patient stopped taking his medication for lipids. Patient states that he has not been feeling well feeling tired and exhausted. He has had fever 1-2 days before he came in the hospital. He complains of shortness of breath when he walks to the mailbox which is been going on for a while. He denies ever being diagnosed with COPD or asthma. He has also had a weight loss of 15 pounds. Patient went to see his primary care physician today and was found to have a low pulse ox of 86% and was sent into [facility] emergency center for evaluation. His pulse ox was 86% on room air. EKG was a sinus rhythm with no acute ST-T wave changes. White count 11.7, lactic acid 1.4. ProBNP 129, troponin was negative. Urinalysis was negative. Chest x-ray showed extensive pulmonary interstitial fibrosis. Acute pneumonia in the right upper lobe is possible. CT angiogram of the chest revealed no evidence of pulmonary embolism. Advanced pulmonary interstitial fibrosis and emphysema. Patient was given a dose of azithromycin and ceftriaxone and admitted to the [facility] floor and consult requested with pulmonary medicine. 03/27: Patient is anxious to be discharged home today after he has bronchoscopy scheduled for this afternoon. Room air pulse-ox to be checked for home O2 need. 03/28: Patient underwent endoscopy yesterday with Dr. Sanderson with BAL and bronchial wash cultures were obtained. Patient again requests to go home which will be done. His pulse ox dropped down to 79% with activity. Patient will be set up with home oxygen therapy. Patient will be discharged home today in stable condition. Discharge diagnoses: 1. Acute hypoxic respiratory failure secondary to possible right upper lobe pneumonia, pulmonary fibrosis, possible COPD. 2. Advanced pulmonary interstitial fibrosis on CAT scan a previously diagnosed. 3. Hyperlipidemia. 4. History of myocardial infarction many years ago. 5. Depression, recurrent. 6. Insomnia. 7. Recent unexplained weight loss of 15 pounds, possibly related to interstitial lung fibrosis and COPD. 8. Axid respiratory failure requiring home O2 which will be arranged by insurance case manager. Discharge plan: Return home Impression and plan of care have been directed as dictated by the signing physician. Jodee Joya nurse practitioner acting as scribe for signing physician. Patient Condition at Discharge: Good Plan - Discharge Summary New Discharge Prescriptions: New Azithromycin [Zithromax] 500 mg PO DAILY #5 tab Famotidine [Pepcid] 20 mg PO DAILY #30 tab predniSONE 0 mg PO DIRECTED #9 tab Continue Multivitamins, Thera [Multivitamin (formulary)] 1 tab PO DAILY Temazepam [Restoril] 15 mg PO HS Aspirin [Adult Low Dose Aspirin EC] 81 mg PO DAILY Simvastatin [Zocor] 20 mg PO DAILY Citalopram Hydrobromide [CeleXA] 20 mg PO DAILY Discharge Medication List Aspirin [Adult Low Dose Aspirin EC] 81 mg PO DAILY 11/07/17 [History] Citalopram Hydrobromide [CeleXA] 20 mg PO DAILY 11/07/17 [History] Multivitamins, Thera [Multivitamin (formulary)] 1 tab PO DAILY 11/07/17 [History ] Simvastatin [Zocor] 20 mg PO DAILY 11/07/17 [History] Temazepam [Restoril] 15 mg PO HS 11/07/17 [History] Azithromycin [Zithromax] 500 mg PO DAILY #5 tab 03/28/18 [Rx] Famotidine [Pepcid] 20 mg PO DAILY #30 tab 03/28/18 [Rx] predniSONE 0 mg PO DIRECTED #9 tab 03/28/18 [Rx] Follow up Appointment(s)/Referral(s): Chaka Sanderson MD [STAFF PHYSICIAN] - 2 Weeks (Office closed, please call for appointment. ) Real Loving DO [Primary Care Provider] - 04/04/18 (Office will call you with appointment time.) Patient Instructions/Handouts: Community Acquired Pneumonia (DC) Activity/Diet/Wound Care/Special Instructions: Home O2 at 2L n/c ATC. Low fat diet. Activity as tolerated. Discharge Disposition: HOME SELF-CARE
== END 2018-03-28 15:18 | disposition home or self-care (01) | DRG 166 ==
LOC: EC 16:19 → 4MS4W 03-26 00:30
PROVIDERS: ADMIT Internal Medicine Geriatric Medicine; ATTEND Internal Medicine Geriatric Medicine
PROC: 0B9C8ZX Drainage of Right Upper Lung Lobe, Via Natural or Artificial Opening Endoscopic, Diagnostic (ICD-10-PCS; principal; 2018-03-27 07:30)
DX: J18.9 Pneumonia, unspecified organism (principal); J96.01 Acute respiratory failure with hypoxia; F33.9 Major depressive disorder, recurrent, unspecified; J43.9 Emphysema, unspecified; E78.5 Hyperlipidemia, unspecified; G47.00 Insomnia, unspecified; I25.2 Old myocardial infarction; I44.7 Left bundle-branch block, unspecified; J84.10 Pulmonary fibrosis, unspecified; Z79.82 Long term (current) use of aspirin; Z79.899 Other long term (current) drug therapy; Z87.891 Personal history of nicotine dependence; Z85.46 Personal history of malignant neoplasm of prostate; Z90.49 Acquired absence of other specified parts of digestive tract
CPT/HCPCS: 31624; 36415; 71046; 71275; 80048; 80053; 81003; 83605; 83735; 83880; 84484; 85025; 85610; 85730; 87040; 87070; 87102; 87116; 87205; 87206; 87252; 87496; 87498; 87502; 87529; 87541; 87581; 87634; 87798; 88108; 88305; 89050; 93005; 96361; 96365; 96366; 96375; 99285

== ENCOUNTER → 2018-05-02 | Outpatient (CLI) | payer MEDICARE, OTHER ==
[2018-05-02 15:56] LABS: Basophils % (A) 1 %; Eosinophils # (A) 0.3 k/uL (0-0.7); Eosinophils % (A) 3 %; HGB 16.5 gm/dL (13.0-17.5); Lymphocytes # (A) 2.4 k/uL (1.0-4.8); Lymphocytes % (A) 31 %; MCH 29.6 pg (25.0-35.0); MCHC 32.4 g/dL (31.0-37.0); MCV 91.4 fL (80.0-100.0); Mean Platelet Volume 6.2; Monocytes # (A) 0.5 k/uL (0-1.0); Monocytes % (A) 6 %; Neutrophils # (A) 4.3 k/uL (1.3-7.7); Neutrophils % (A) 56 %; Platelet Count 251 k/uL (150-450); RBC 5.58 m/uL (4.30-5.90); RDW 14.8 % (11.5-15.5); WBC 7.8 k/uL (3.8-10.6)
[2018-05-02 16:54] LABS: Erythrocyte Sedimentation Rate 10 mm/hr (0-15)
--- NOTE | 2018-05-02 17:21 | XR ---
EXAMINATION TYPE: XR chest 2V DATE OF EXAM: 05/02/2018 COMPARISON: Prior chest x-ray 04/03/2018, chest x-ray and chest CT 03/25/2018 HISTORY: Interstitial lung disease TECHNIQUE: Frontal and lateral views of the chest are obtained. FINDINGS: Interstitial lung disease shows a similar appearance. No pneumothorax or pleural effusion. Cardiac mediastinal silhouette, pulmonary vascularity and kelechi not significantly changed. Pulmonary artery is prominent. Correlate to exclude underlying pulmonary artery hypertension. IMPRESSION: Interstitial lung disease. Additional findings above.
[2018-05-03 00:59] LABS: Rheumatoid Factor 5 IU/mL (0-15)
[2018-05-03 01:00] LABS: DNA Double-Stranded NEGATIVE (NEGATIVE); Scleroderma SC-70 Ab <0.2 AI
[2018-05-05 14:15] LABS: APTT 42 Sec(s) (<43); Dilute Russell Viper Venom 43 Sec(s) (<44)
[2018-05-05 14:31] LABS: C-ANCA <1:20 Titer (<1:20); P-ANCA <1:20 Titer (<1:20)
== END | disposition home or self-care (01) ==
LOC: RADXRMAIN 15:32
PROVIDERS: ATTEND Internal Medicine
DX: J84.9 Interstitial pulmonary disease, unspecified (principal)
CPT/HCPCS: 36415; 71046; 82550; 85025; 85613; 85652; 85730; 86001; 86038; 86225; 86235; 86255; 86431; 86606; 86609

== ENCOUNTER → 2018-06-23 | Outpatient (CLI) | payer MEDICARE, OTHER ==
[2018-06-23 12:40] LABS: ALT 25 U/L (21-72); AST 26 U/L (17-59); Albumin 4.6 g/dL (3.5-5.0); Alkaline Phosphatase 65 U/L (38-126); Anion Gap 11 mmol/L; Blood Urea Nitrogen 17 mg/dL (9-20); Calcium 9.9 mg/dL (8.4-10.2); Carbon Dioxide 27 mmol/L (22-30); Chloride 103 mmol/L (98-107); Glucose 105 mg/dL (74-99); Potassium 4.3 mmol/L (3.5-5.1); Sodium 141 mmol/L (137-145); Total Bilirubin 0.5 mg/dL (0.2-1.3); Total Protein 8.2 g/dL (6.3-8.2)
[2018-06-23 12:55] LABS: Basophils # (A) 0.1 k/uL (0-0.2); Basophils % (A) 1 %; Eosinophils # (A) 0.3 k/uL (0-0.7); Eosinophils % (A) 4 %; HCT 52.7 % (39.0-53.0); Lymphocytes # (A) 2.2 k/uL (1.0-4.8); Lymphocytes % (A) 25 %; MCH 29.5 pg (25.0-35.0); MCHC 32.3 g/dL (31.0-37.0); MCV 91.4 fL (80.0-100.0); Mean Platelet Volume 6.8; Monocytes # (A) 0.6 k/uL (0-1.0); Monocytes % (A) 7 %; Neutrophils # (A) 5.3 k/uL (1.3-7.7); Neutrophils % (A) 60 %; Platelet Count 286 k/uL (150-450); RBC 5.77 m/uL (4.30-5.90); RDW 15.3 % (11.5-15.5); WBC 8.9 k/uL (3.8-10.6)
== END ==
LOC: LABWHC1 11:45
PROVIDERS: ATTEND Internal Medicine
DX: J84.9 Interstitial pulmonary disease, unspecified (principal); Z79.899 Other long term (current) drug therapy
CPT/HCPCS: 36415; 80053; 85025

== ENCOUNTER → 2018-09-05 | Outpatient (CLI) | payer MEDICARE, OTHER | LOC: LABWHC1 10:32 | PROVIDERS: ATTEND Urology | DX: C61 Malignant neoplasm of prostate (principal) | CPT/HCPCS: 36415; 84153 ==

== ENCOUNTER → 2018-12-26 | Outpatient (CLI) | payer MEDICARE, OTHER ==
--- NOTE | 2018-12-26 10:51 | ECHOF ---
Referral Reason:R01.1 heart murmur MEASUREMENTS -------- HEIGHT: 172.7 cm WEIGHT: 83.9 kg BP: IVSd: 1.4 cm (0.6 - 1.1) LVIDd: 2.5 cm (3.9 - 5.3) LVPWd: 1.4 cm (0.6 - 1.1) IVSs: 1.9 cm LVIDs: 1.5 cm LVPWs: 1.5 cm LAESV Index (A-L): 19.72 ml/m Ao Diam: 3.0 cm (2.0 - 3.7) AV Cusp: 1.1 cm (1.5 - 2.6) LA Diam: 3.2 cm (2.7 - 3.8) MV EXCURSION: 17.354 mm (> 18.000) MV EF SLOPE: 68 mm/s (70 - 150) EPSS: 0.6 cm MV E Dexter: 0.53 m/s MV DecT: 274 ms MV A Dexter: 0.83 m/s MV E/A Ratio: 0.64 AV maxP.56 mmHg AV meanP.79 mmHg RAP: 5.00 mmHg RVSP: 81.06 mmHg FINDINGS -------- Sinus rhythm. This was a technically good study. The left ventricular size is normal. There is moderate concentric left ventricular hypertrophy. O verall left ventricular systolic function is low-normal with, an EF between 50 - 55 %. The right ventricle is mildly enlarged. Normal LA size by volume 22+/-6 ml/m2. The right atrial size is normal. Interatrial and interventricular septum intact. The aortic valve is trileaflet and appears structurally normal. There is mild aortic stenosis prese nt. Peak/mean gradient across the Aortic Valve is 16.56mmHg / 9.79mmHg. There is trace mitral regurgitation. Mild tricuspid regurgitation present. There is severe pulmonary hypertension. The right ventricul ar systolic pressure, as measured by Doppler, is more than 60 mm of Hg There is no pulmonic regurgitation present. The aortic root size is normal. Normal inferior vena cava with normal inspiratory collapse consistent with estimated right atrial pre ssure of 5 mmHg. There is no pericardial effusion. CONCLUSIONS -------- 1. Sinus rhythm. 2. This was a technically good study. 3. The left ventricular size is normal. 4. There is moderate concentric left ventricular hypertrophy. 5. Overall left ventricular systolic function is low-normal with, an EF between 50 - 55 %. 6. The right ventricle is mildly enlarged. 7. Normal LA size by volume 22+/-6 ml/m2. 8. The right atrial size is normal. 9. Interatrial and interventricular septum intact. 10. The aortic valve is trileaflet and appears structurally normal. 11. There is mild aortic stenosis present. 12. Peak/mean gradient across the Aortic Valve is 16.56mmHg / 9.79mmHg. 13. There is trace mitral regurgitation. 14. Mild tricuspid regurgitation present. 15. There is severe pulmonary hypertension. 16. The right ventricular systolic pressure, as measured by Doppler, is more than 60 mm of Hg 17. There is no pulmonic regurgitation present. 18. The aortic root size is normal. 19. Normal inferior vena cava with normal inspiratory collapse consistent with estimated right atrial pressure of 5 mmHg. 20. There is no pericardial effusion. MINESWEEPING OFFICER: Gail Patricio RDCS
== END | disposition home or self-care (01) ==
LOC: RADECHMAIN 08:04
PROVIDERS: ATTEND Family Medicine
DX: I35.0 Nonrheumatic aortic (valve) stenosis (principal); I07.1 Rheumatic tricuspid insufficiency; I27.20 Pulmonary hypertension, unspecified
CPT/HCPCS: 93306

== ENCOUNTER → 2019-06-30 | Outpatient (CLI) | payer MEDICARE, OTHER ==
--- NOTE | 2019-07-01 11:46 | US ---
EXAMINATION TYPE: US carotid duplex BILAT DATE OF EXAM: 06/30/2019 COMPARISON: NONE CLINICAL HISTORY: R55 Syncope. Syncope TIA. EXAM MEASUREMENTS: RIGHT: Peak Systolic Velocity (PSV) cm/sec ----- Right CCA: 48.8 ----- Right ICA: 96.8 ----- Right ECA: 105.5 ICA/CCA ratio: 2.0 RIGHT: End Diastole cm/sec ----- Right CCA: 48.8 ----- Right ICA: 28.5 ----- Right ECA: 11 LEFT: Peak Systolic Velocity (PSV) cm/sec ----- Left CCA: 66.3 ----- Left ICA: 72.1 ----- Left ECA: 120.0 ICA/CCA ratio: 1.1 LEFT: End Diastole cm/sec ----- Left CCA: 11 ----- Left ICA: 21.2 ----- Left ECA: 11 VERTEBRALS (direction of flow): Right Vertebral: Antegrade Left Vertebral: Antegrade Rhythm: Normal Bilateral plaque visualized. No significant stenosis seen IMPRESSION: 1. Atheromatous plaquing and intimal thickening without significant flow-limiting stenosis. Criteria for Assigning % of Stenosis / Diameter reduction (Estimation based on the indirect measurements of the internal carotid artery velocities (ICA PSV). 1. Normal (no stenosis)=ICA PSV < 125 cm/s: ratio < 2.0: ICA EDV<40 cm/s. 2. Less than 50% stenosis=ICA PSV < 125 cm/s: ratio < 2.0: ICA EDV<40 cm/s. 3. 50 to 69% stenosis=ICA PSV of 125 to 230 cm/s: ration 2.0 ? 4.0: ICA EDV 40-100 cm/s. 4. Greater than 70% stenosis to near occlusion= ICA PSV > 230 cm/s: ratio > 4.0: ICA EDV > 100 cm/s. 5. Near occlusion= ICA PSV velocities may be low or undetectable: variable ratio and ICA EDV. 6. Total occlusion=unable to detect flow.
== END | disposition home or self-care (01) ==
LOC: RADUSWWP 14:51
PROVIDERS: ATTEND Family Medicine
DX: I65.23 Occlusion and stenosis of bilateral carotid arteries (principal)
CPT/HCPCS: 93880

== ENCOUNTER → 2019-07-21 | Outpatient (CLI) | payer MEDICARE, OTHER ==
--- NOTE | 2019-07-21 13:02 | MR ---
EXAMINATION TYPE: MR brain wo/w con DATE OF EXAM: 07/21/2019 COMPARISON: None HISTORY: Seizure disorder/ Syncope TECHNIQUE: Multiplanar, multisequence images of the brain and brainstem is performed without and with IV contras t, utilizing 7.5 mL intravenous Gadavist . FINDINGS: Diffusion weighted images demonstrate no evidence of a recent infarct or other diffusion ab normality. There is no extra-axial fluid collection. Within the periventricular, pericallosal, subc ortical white matter there are scattered and confluent areas of hyperintensity and inversion recovery T2-weighted sequences. There are 50 lesions are more present. Focal area of encephalomalacia present in the periventricular location along the anterior limb of the internal capsule on the left measurin g 12 mm in greatest dimension and also right pericallosal location measuring 7 mm. The ventricular sy stem and cisternal spaces are normal in size and appearance. The brain volume is age appropriate. Midline structures demonstrate normal morphology. The craniocervical junction appears within normal limits. Post contrast images demonstrate no abnormal enhancement. The dural venous sinuses appear pa tent. The visualized sinuses are remarkable for mucoperiosteal thickening within the ethmoid air cell s and maxillary sinuses. And the globes are intact. IMPRESSION: Probable chronic small vessel ischemia with areas of encephalomalacia due to remote infar ct. No subacute ischemia.
== END | disposition home or self-care (01) ==
LOC: RADMRIMAIN 09:24
PROVIDERS: ATTEND Psychiatry & Neurology Neurology
DX: C71.9 Malignant neoplasm of brain, unspecified (principal); G40.909 Epilepsy, unspecified, not intractable, without status epilepticus
CPT/HCPCS: 70553; A9585

== ENCOUNTER 2019-08-12 14:50 | Inpatient (IN) | payer MEDICARE, OTHER ==
[2019-08-12 15:31] LABS: Glucose,Whole Blood 130 mg/dL (75-99)
[2019-08-12] MEDS ORDERED: SODIUM CHLORIDE 0.9% 500 ML 500 ML IV STA (15:37)
[2019-08-12 15:54] LABS: Basophils % (A) 0 %; Eosinophils # (A) 0.1 k/uL (0-0.7); Eosinophils % (A) 1 %; Lymphocytes # (A) 1.2 k/uL (1.0-4.8); Lymphocytes % (A) 11 %; MCH 29.8 pg (25.0-35.0); MCHC 33.8 g/dL (31.0-37.0); MCV 88.3 fL (80.0-100.0); Mean Platelet Volume 6.7; Monocytes # (A) 0.6 k/uL (0-1.0); Monocytes % (A) 5 %; Neutrophils # (A) 9.4 k/uL (1.3-7.7); Neutrophils % (A) 82 %; Platelet Count 265 k/uL (150-450); RBC 6.41 m/uL (4.30-5.90); RDW 13.8 % (11.5-15.5); WBC 11.5 k/uL (3.8-10.6)
[2019-08-12 15:59] LABS: HCT 56.6 % (39.0-53.0); HGB 19.1 gm/dL (13.0-17.5)
--- NOTE | 2019-08-12 16:02 | CT ---
EXAMINATION TYPE: CT brain wo con DATE OF EXAM: 08/12/2019 COMPARISON: None HISTORY: Multiple syncopal episodes today with facial abrasions. CT DLP: 1247.[address] of the brain was performed. The ventricles, basal cisterns and sulci overlying the cerebral convexities demonstrate mild enlargem ent. There is no evidence for intracranial hemorrhage or sulcal effacement. There is decreased attenuation about the periventricular white matter and deep white matter of both c erebral hemispheres, compatible with chronic small vessel ischemia. Differential diagnosis does inclu de demyelination. No mass effects are seen.No midline shift. Osseous calvarium is intact. If symptoms persist consider MRI. IMPRESSION: 1. Age related atrophic and chronic small vessel ischemic change without acute intracranial process s een at this time.
--- NOTE | 2019-08-12 16:02 | XR ---
EXAMINATION TYPE: XR chest 2V DATE OF EXAM: 08/12/2019 COMPARISON: 06/22/2019 TECHNIQUE: PA and lateral views submitted. HISTORY: Shortness of breath FINDINGS: Diffuse reticular pattern noted suggestive of pulmonary fibrosis. Heart size enlarged but stable. Ath erosclerotic change aorta. No pneumothorax. Arthropathy of the shoulders noted. New subsegmental area of right perihilar infiltrate noted. Degenerative change of the spine. IMPRESSION: 1. Pulmonary fibrosis. New right perihilar area of atelectasis or infiltrate correlate clinically.
[2019-08-12 16:08] LABS: Albumin 4.9 g/dL (3.5-5.0); Calcium 9.9 mg/dL (8.4-10.2); Potassium 4.9 mmol/L (3.5-5.1); Total Bilirubin 0.7 mg/dL (0.2-1.3); Total Protein 8.6 g/dL (6.3-8.2)
[2019-08-12] MEDS ORDERED: SODIUM CHLORIDE 0.9% 500 ML 500 ML IV ONE (16:18)
[2019-08-12] MEDS ORDERED: ASPIRIN 325 MG TAB PO STA (16:30)
[2019-08-12] MEDS ORDERED: HEPARIN SODIUM,PORCINE 5,000 UNIT/ML 1 ML VIAL IV ONE (16:35)
[2019-08-12] MEDS ORDERED: HEPARIN SODIUM,PORCINE 5,000 UNIT/ML 1 ML VIAL IV PRN (16:35)
[2019-08-12] MEDS ORDERED: ACETAMINOPHEN TAB 325 MG TAB PO PRN (16:36)
[2019-08-12] MEDS ORDERED: MORPHINE SULFATE 4 MG/ML SYRINGE IV PRN (16:36)
[2019-08-12] MEDS ORDERED: NALOXONE 0.4 MG/ML 1 ML VIAL IV PRN (16:36)
[2019-08-12] MEDS ORDERED: HEPARIN SOD,PORK IN 0.45% NACL 25,000 UNIT in 0.45% NACL 1 250ML.BAG IV SCH (16:45)
[2019-08-12] MEDS ORDERED: NITROGLYCERIN SL TABS 0.4 MG TAB SUBLINGUAL PRN (16:46)
--- NOTE | 2019-08-12 16:46 | ED ---
General Adult HPI - General Chief complaint: Syncope Stated complaint: Syncope, CHest Pain Time Seen by Provider: 08/12/19 15:29 Source: patient, RN notes reviewed, old records reviewed Mode of arrival: wheelchair Limitations: no limitations - History of Present Illness Initial comments: 74-year-old male presented for evaluation of syncopal episode. Patient had 2 syncopal episodes today. He's been dealing with episodes of syncope over the past 6 weeks. He's been seen as an outpatient by his primary care physician and cardiology. Today he had 2 episodes resulting in head trauma. He was only unconscious momentarily. The second episode was exertional. He denied any preceding palpitations or chest pain. He's been eating and drinking normally. He is on home oxygen with history of idiopathic pulmonary fibrosis. He reports a mild cough which is at baseline. No central chest pain. No abdominal pain. No vomiting or diarrhea. - Related Data Home Medications Medication Instructions Recorded Confirmed Aspirin [Adult Low Dose Aspirin EC] 81 mg PO DAILY 11/07/17 03/25/18 Citalopram Hydrobromide [CeleXA] 20 mg PO DAILY 11/07/17 03/25/18 Multivitamins, Thera [Multivitamin 1 tab PO DAILY 11/07/17 03/25/18 (formulary)] Simvastatin [Zocor] 20 mg PO DAILY 11/07/17 03/25/18 Temazepam [Restoril] 15 mg PO HS 11/07/17 03/25/18 Previous Rx's Medication Instructions Recorded Azithromycin [Zithromax] 500 mg PO DAILY #5 tab 03/28/18 Famotidine [Pepcid] 20 mg PO DAILY #30 tab 03/28/18 predniSONE 0 mg PO DIRECTED #9 tab 03/28/18 Allergies Allergy/AdvReac Type Severity Reaction Status Date / Time metoprolol [From Lopressor] AdvReac Unknown Verified 08/12/19 15:15 Review of Systems ROS Statement: Those systems with pertinent positive or pertinent negative responses have been documented in the HPI. ROS Other: All systems not noted in ROS Statement are negative. Past Medical History Past Medical History: Cancer, Hyperlipidemia, Myocardial Infarction ([place]), Prostate Disorder Additional Past Medical History / Comment(s): prostate cancer, sees DR Huynh currently Last Myocardial Infarction Date:: 1982 History of Any Multi-Drug Resistant Organisms: None Reported Past Surgical History: Appendectomy Additional Past Surgical History / Comment(s): colonoscopy with Dr. Downs Past Anesthesia/Blood Transfusion Reactions: No Reported Reaction Past Psychological History: No Psychological Hx Reported, Depression Smoking Status: Former smoker Past Alcohol Use History: None Reported Past Drug Use History: None Reported - Past Family History Father Family Medical History: Cancer Additional Family Medical History / Comment(s): Father at age 65 from lymphoma. Mother Additional Family Medical History / Comment(s): Mother at age 85 with history of coronary artery disease. Patient has one sister who has had breast cancer. Patient has 1 son and 1 daughter with no major medical problems. General Exam Limitations: no limitations General appearance: alert, in no apparent distress Head exam: Present: normocephalic Eye exam: Present: normal appearance, PERRL ENT exam: Present: other (Patient has ecchymosis and swelling as well as minimal dried blood at the external there is) Neck exam: Present: normal inspection. Absent: tenderness, meningismus Respiratory exam: Present: rales, rhonchi Cardiovascular Exam: Present: regular rate, normal rhythm GI/Abdominal exam: Present: soft. Absent: distended, tenderness, guarding Extremities exam: Present: normal inspection, normal capillary refill. Absent: pedal edema Back exam: Present: normal inspection Neurological exam: Present: alert, oriented X3, CN II-XII intact. Absent: motor sensory deficit Psychiatric exam: Present: normal affect, normal mood Skin exam: Present: warm, dry, intact Course Vital Signs 08/12/19 08/12/19 08/12/19 15:13 15:31 15:46 Temperature 97.7 F Pulse Rate 93 82 Respiratory 20 18 20 Rate Blood Pressure 117/70 158/104 159/99 O2 Sat by Pulse 81 L 91 L Oximetry EKG Findings - EKG Comments: EKG Findings:: EKG: Normal sinus rhythm, left anterior fascicular block T-wave inversion in the inferior leads, no ST segment elevation. Rate of 76. HI interval 186, QRS duration 122, QTC 445 similar periods to EKG in March 2018 with the exception of T-wave inversion in the inferior leads. Medical Decision Making - Medical Decision Making 74 -year-old male presenting with multiple syncopal episodes. Patient did have head trauma, head CT is obtained as is negative for intracranial hemorrhage. Patient has a chest x-ray showing pulmonary fibrosis and concern for a perihilar infiltrate on the right. He has had minor cough and has a white blood cell count of 11.5. He will be covered with a dose of antibiotics. He has hemoglobin 19.1. Normal electrolytes. He has a troponin elevation is 0.064, EKG does show T-wave inversions, patient is asymptomatic, no pain complaints. He will be initiated on heparin, is given an aspirin. He will have trended cardiac enzymes and we will be evaluated by cardiology for both syncope and troponin elevation. Phone system is not operational and the admitting physician cannot be contacted at this time. Phone call will be placed when phones her operational. - Lab Data Result diagrams: 08/12/19 15:35 08/12/19 15:35 Lab Results 08/12/19 08/12/19 08/12/19 Range/Units 15:29 15:35 15:35 WBC 11.5 H (3.8-10.6) k/uL RBC 6.41 H (4.30-5.90) m/uL Hgb 19.1 H* (13.0-17.5) gm/dL Hct 56.6 H (39.0-53.0) % MCV 88.3 D (80.0-100.0) fL MCH 29.8 (25.0-35.0) pg MCHC 33.8 (31.0-37.0) g/dL RDW 13.8 (11.5-15.5) % Plt Count 265 (150-450) k/uL Neutrophils % 82 % Lymphocytes % 11 % Monocytes % 5 % Eosinophils % 1 % Basophils % 0 % Neutrophils # 9.4 H (1.3-7.7) k/uL Lymphocytes # 1.2 (1.0-4.8) k/uL Monocytes # 0.6 (0-1.0) k/uL Eosinophils # 0.1 (0-0.7) k/uL Basophils # 0.0 (0-0.2) k/uL Sodium 139 (137-145) mmol/L Potassium 4.9 (3.5-5.1) mmol/L Chloride 103 (98-107) mmol/L Carbon Dioxide 23 (22-30) mmol/L Anion Gap 13 mmol/L BUN 19 (9-20) mg/dL Creatinine 0.99 (0.66-1.25) mg/dL Est GFR (CKD-EPI)AfAm 87 (>60 ml/min/1.73 sqM) Est GFR (CKD-EPI)NonAf 75 (>60 ml/min/1.73 sqM) Glucose 120 H (74-99) mg/dL POC Glucose (mg/dL) 130 H (75-99) mg/dL POC [employer] Development Consultant ID Patsy Valero Calcium 9.9 (8.4-10.2) mg/dL Magnesium 2.0 (1.6-2.3) mg/dL Total Bilirubin 0.7 (0.2-1.3) mg/dL AST 39 (17-59) U/L ALT 28 (21-72) U/L Alkaline Phosphatase 92 (38-126) U/L Troponin I (0.000-0.034) ng/mL Total Protein 8.6 H (6.3-8.2) g/dL Albumin 4.9 (3.5-5.0) g/dL 08/12/19 Range/Units 15:35 WBC (3.8-10.6) k/uL RBC (4.30-5.90) m/uL Hgb (13.0-17.5) gm/dL Hct (39.0-53.0) % MCV (80.0-100.0) fL MCH (25.0-35.0) pg MCHC (31.0-37.0) g/dL RDW (11.5-15.5) % Plt Count (150-450) k/uL Neutrophils % % Lymphocytes % % Monocytes % % Eosinophils % % Basophils % % Neutrophils # (1.3-7.7) k/uL Lymphocytes # (1.0-4.8) k/uL Monocytes # (0-1.0) k/uL Eosinophils # (0-0.7) k/uL Basophils # (0-0.2) k/uL Sodium (137-145) mmol/L Potassium (3.5-5.1) mmol/L Chloride (98-107) mmol/L Carbon Dioxide (22-30) mmol/L Anion Gap mmol/L BUN (9-20) mg/dL Creatinine (0.66-1.25) mg/dL Est GFR (CKD-EPI)AfAm (>60 ml/min/1.73 sqM) Est GFR (CKD-EPI)NonAf (>60 ml/min/1.73 sqM) Glucose (74-99) mg/dL POC Glucose (mg/dL) (75-99) mg/dL POC Glu Systems Development Consultant ID Calcium (8.4-10.2) mg/dL Magnesium (1.6-2.3) mg/dL Total Bilirubin (0.2-1.3) mg/dL AST (17-59) U/L ALT (21-72) U/L Alkaline Phosphatase (38-126) U/L Troponin I 0.064 H* (0.000-0.034) ng/mL Total Protein (6.3-8.2) g/dL Albumin (3.5-5.0) g/dL Disposition Clinical Impression: Syncope, NSTEMI (non-ST elevated myocardial infarction) Disposition: ADMITTED IP TO THIS [facility] Condition: Serious Is patient prescribed a controlled substance at d/c from ED?: No Referrals: Real Loving DO [Primary Care Provider] - 1-2 days Decision to Admit Reason: Admit from EC Decision Date: 08/12/19 Decision Time: 16:46
[2019-08-12] MEDS: SODIUM CHLORIDE 0.9% 1,000 ML IV SCH (17:14)
[2019-08-12 17:38] LABS: Appearance,Urine Clear (Clear); Bilirubin,Urine Negative (Negative); Blood,Urine Negative (Negative); Color,Urine Yellow; Glucose,Urine (UA) Negative (Negative); Ketones,Urine Negative (Negative); Leukocyte Esterase,Urine Negative (Negative); Nitrite,Urine Negative (Negative); PH, Urine 5.5 (5.0-8.0); Protein,Urine Trace (Negative); Urobilinogen,Urine <2.0 mg/dL (<2.0)
[2019-08-13 06:47] LABS: Basophils # (A) 0.1 k/uL (0-0.2); Basophils % (A) 1 %; Eosinophils # (A) 0.2 k/uL (0-0.7); Eosinophils % (A) 3 %; HCT 48.5 % (39.0-53.0); HGB 16.3 gm/dL (13.0-17.5); Lymphocytes # (A) 1.5 k/uL (1.0-4.8); Lymphocytes % (A) 19 %; MCH 29.8 pg (25.0-35.0); MCHC 33.6 g/dL (31.0-37.0); MCV 88.6 fL (80.0-100.0); Mean Platelet Volume 5.8; Monocytes # (A) 0.5 k/uL (0-1.0); Monocytes % (A) 6 %; Neutrophils # (A) 5.5 k/uL (1.3-7.7); Neutrophils % (A) 69 %; Platelet Count 243 k/uL (150-450); RBC 5.48 m/uL (4.30-5.90); RDW 13.8 % (11.5-15.5)
[2019-08-13 07:09] LABS: ALT 26 U/L (21-72); AST 25 U/L (17-59); African American GFR (CKD) >90 (>60 ml/min/1.73 sqM); Albumin 3.7 g/dL (3.5-5.0); Alkaline Phosphatase 74 U/L (38-126); Anion Gap 7 mmol/L; Blood Urea Nitrogen 15 mg/dL (9-20); Calcium 8.8 mg/dL (8.4-10.2); Carbon Dioxide 25 mmol/L (22-30); Chloride 107 mmol/L (98-107); Glucose 92 mg/dL (74-99); Non-African American GFR(CKD) 84 (>60 ml/min/1.73 sqM); Potassium 4.7 mmol/L (3.5-5.1); Sodium 139 mmol/L (137-145); Total Bilirubin 0.6 mg/dL (0.2-1.3); Total Protein 6.6 g/dL (6.3-8.2)
[2019-08-13] MEDS ORDERED: ALPRAZolam 0.25 MG TAB PO PRN (09:07)
[2019-08-13] MEDS ORDERED: SODIUM CHLORIDE 0.9% 1,000 ML in EMPTY BAG 1 BAG IV ONE (09:07)
[2019-08-13] MEDS ORDERED: ALPRAZolam 0.5 MG TAB PO PRN (09:07)
[2019-08-13] MEDS ORDERED: ASPIRIN 325 MG TAB PO STA (09:07)
[2019-08-13] MEDS ORDERED: ATORVASTATIN 80 MG TAB PO STA (09:07)
[2019-08-13] MEDS ORDERED: NITROGLYCERIN SL TABS 0.4 MG TAB SUBLINGUAL PRN ×2 (09:07→15:23)
[2019-08-13] MEDS: Pirfenidone [Esbriet] 801 MG PO SCH ×3 (09:15→17:55)
[2019-08-13] MEDS: SODIUM CHLORIDE 0.9% 1,000 ML IV SCH (09:18)
[2019-08-13] MEDS: FAMOTIDINE 20 MG TAB PO SCH (09:23)
[2019-08-13 09:55] LABS: Prothrombin Time 10.7 sec (9.0-12.0)
[2019-08-13 09:56] LABS: Partial Thromboplastin Time 26.5 sec (22.0-30.0)
--- NOTE | 2019-08-13 10:43 | CONS ---
CONSULTATION Mr. Ventura is a 74-year-old male who carries a diagnosis of myocardial infarction about 20 years ago who presents with symptoms of recurrent syncope. His symptoms started in May. Usually they are very brief, lasting for a few seconds. The first time he had loss of bladder control. Yesterday, after seeing Dr. Loving and getting home, he had two brief episodes of syncope lasting for 5 seconds each, not associated with any loss of bladder control. He had some chest discomfort with the second one but he is not quite sure if it is related to the fall. He has chronic dyspnea on exertion and he is on chronic oxygen. He had idiopathic pulmonary fibrosis and has been followed by Dr. Sanderson and that has been stable. Yesterday he did not feel well, felt something in his chest and his abdomen. He has no prior documented history of arrhythmia. He was evaluated by Dr. Quintero and underwent stress test that showed a predominantly fixed inferior wall defect. The patient denies any PND, orthopnea or peripheral edema. He has chronic dyspnea on exertion. No history of documented recent angina or malignant arrhythmia. His risk factors are negative for hypertension or diabetes. He stopped smoking a long time ago. His lipid profile is not available. MEDICATIONS: His medications at home include: 1. Flomax. 2. Pirfenidone. 3. Melatonin. 4. Neurontin. 5. Celexa. 6. Ocuvite. REVIEW OF SYSTEMS: RESPIRATORY SYSTEM: He has history of idiopathic pulmonary fibrosis, chronic dyspnea on exertion that has been stable. GI SYSTEM: No nausea. No vomiting. No GI bleeding. SYSTEM: No dysuria or hematuria. NERVOUS SYSTEM: No stroke or seizure. PHYSICAL EXAMINATION: He is a 74-year-old male, alert and oriented. No apparent distress. Blood pressure running in the 120s to 150s with no orthostatic changes, heart rate in the 70s. HEAD: With bruises and ecchymoses noted on the lips and the chin. NECK: No bruit. No jugular venous distention. LUNGS: With decreased air exchange. No wheezes. HEART: Regular rate and rhythm. S1, S2. No S3 with systolic ejection murmur at the base. No diastolic murmur. No rub. ABDOMEN: Soft, nontender. Positive bowel sounds. No organomegaly. EXTREMITIES: No edema. Intact distal pulses. LAB DATA: Hemoglobin of 16.3, white blood cell count of 8. BUN and creatinine 15 and 0.9. Troponin 0.064, 0.058, and 0.040. His EKG reveals sinus mechanism with T-wave inversion in leads III and aVF that was noted in the past and left axis deviation. His chest x-ray shows evidence of pulmonary fibrosis. His brain CT revealed no acute changes. IMPRESSION: 1. Recurrent syncopal episodes of unclear etiology. No documented malignant arrhythmia. 2. Mild troponin elevation, rule out obstructive coronary artery disease with abnormal EKG, unchanged. 3. Idiopathic pulmonary fibrosis with chronic dyspnea, on oxygen. RECOMMENDATION: I will obtain echocardiogram with Doppler. I will recommend to proceed with a cardiac catheterization to assess his status and guide his treatment. If there is no evidence of obstructive coronary artery disease, then I would recommend to proceed with loop implantation. I have discussed those findings with the patient who is in full understanding and agreement. Thank you for this consult. Will follow with you. RADHA / TUCKERN: [id number] /
--- NOTE | 2019-08-13 11:12 | P.CNPUL ---
History of Present Illness Consult date: 08/13/19 Requesting physician: Rajendra Barahona Reason for consult: other Chief complaint: Syncopal episode History of present illness: This is a 74-year-old white male patient of Dr. Dutton, with past medical history of idiopathic pulmonary fibrosis, UIP, chronic hypoxic respiratory failure usually on 3 L of oxygen at home, coronary artery disease, cholesterolemia, benign paroxysmal positional vertigo, past history of smoking, currently in remission, patient does carry [id number] smoking history, who has been having episodes of syncope since May 2019. He has been seen by his primary care physician, cardiology, and neurology and he was told that her neurologic workup was negative. Brain MRI showed probable chronic small vessel ischemia with areas of encephalomalacia, but no subacute ischemia. Carotid Doppler showed no hemodynamically significant stenosis. Echocardiogram showed preserved left ventricular systolic function with an EF of 50-55%, mild aortic stenosis, mild TR, trace MR, severe pulmonary hypertension with right-sided pressures of 60 mmHg. Yesterday patient had returned from Dr. Dutton's office, and he was bending over switch his portable oxygen to his home concentrator, when he suddenly passed out and fell on his face sustaining abrasion on his face. He struck his chest on the table as well. His was there and patient apparently was unresponsive for only seconds and then came to. No neurologic deficits, no headaches. He denied any breathing difficulty prior to that, denied any chest pain, denied any warning sign is other than he usually feels slightly tachycardic just before and tenderness he and his stomach. Brain CT in emergency department showed age-related atrophic and chronic small vessel ischemic change without acute intracranial process. Chest x-ray showed chronic changes of pulmonary fibrosis, and new right perihilar area of atelectasis/infiltrate. he denies any pulmonary complaints, he is breathing is at his baseline, there is no increased cough or congestion. EKG showed normal sinus rhythm with left bundle branch block pattern. His lab work showed a white blood cell count of 11.5, hemoglobin of 19, electrolytes and renal profile were within normal limits, troponins were 0.064, 0.058, and 0.040. Urinalysis showed no sign of infection. Patient is on Pirfenidone for his pulmonary fibrosis, however he has not taken it in the last few days because he thinks he may have developed reaction to it after having some sun exposure developed significant redness and itching and swelling on his hands, which is currently resolving. Patient is being seen by cardiology, and heart catheterizations plan for today, breathing is stable, no pulmonary complaints at this time. Review of Systems All systems: negative Constitutional: Denies chills, Denies fever Eyes: denies blurred vision, denies pain Ears, nose, mouth and throat: Denies headache, Denies sore throat Cardiovascular: Denies chest pain, Denies shortness of breath Respiratory: Reports home oxygen, Denies cough Gastrointestinal: Denies abdominal pain, Denies diarrhea, Denies nausea, Denies vomiting Musculoskeletal: Denies myalgias Integumentary: Denies pruritus, Denies rash Neurological: Denies numbness, Denies weakness Psychiatric: Denies anxiety, Denies depression Endocrine: Denies fatigue, Denies weight change Past Medical History Past Medical History: Cancer, Hyperlipidemia, Myocardial Infarction ([place]), Prostate Disorder Additional Past Medical History / Comment(s): prostate cancer, sees DR Huynh currently, pulmonary fibrosis Last Myocardial Infarction Date:: 1989 History of Any Multi-Drug Resistant Organisms: None Reported Past Surgical History: Appendectomy Additional Past Surgical History / Comment(s): colonoscopy with Dr. Downs, right eye retna, bilateral cataract Past Anesthesia/Blood Transfusion Reactions: No Reported Reaction Smoking Status: Former smoker - Past Family History Father Family Medical History: Cancer Additional Family Medical History / Comment(s): Father at age 65 from lymphoma. Mother Additional Family Medical History / Comment(s): Mother at age 85 with history of coronary artery disease. Patient has one sister who has had breast cancer. Patient has 1 son and 1 daughter with no major medical problems. Medications and Allergies Home Medications Medication Instructions Recorded Confirmed Type Citalopram Hydrobromide [CeleXA] 10 mg PO HS 11/07/17 08/12/19 History ALPRAZolam [Xanax] 1 mg PO HS 08/12/19 08/12/19 History C,E,Zinc,Copper 11/Rnrmv0b/Lut 1 cap PO HS 08/12/19 08/12/19 History [Ocuvite Adult 50 Plus Softgel] Gabapentin [Neurontin] 300 mg PO HS 08/12/19 08/12/19 History Melatonin 10 mg PO HS 08/12/19 08/12/19 History Pirfenidone [Esbriet] 801 mg PO AC-TID 08/12/19 08/12/19 History Tamsulosin [Flomax] 0.8 mg PO HS 08/12/19 08/12/19 History Triamcinolone 0.1% Cream [Kenalog 1 applicatio TOPICAL BID PRN 08/12/19 08/12/19 History 0.1% Cream] Allergies Allergy/AdvReac Type Severity Reaction Status Date / Time metoprolol [From Lopressor] AdvReac Nausea & Verified 08/12/19 16:55 Vomiting Physical Exam Vitals: Vital Signs Temp Pulse Pulse Pulse Pulse Pulse Resp 08/13/19 08:00 16 08/13/19 07:59 97.8 F 72 79 72 16 08/13/19 04:00 98.0 F 71 18 08/13/19 00:00 98.2 F 79 18 08/12/19 20:00 98.0 F 77 18 08/12/19 19:10 98.2 F 78 20 08/12/19 18:22 97.7 F 64 20 08/12/19 18:00 97.7 F 64 20 08/12/19 17:00 97.7 F 20 08/12/19 16:15 08/12/19 15:46 20 08/12/19 15:31 82 18 08/12/19 15:13 97.7 F 93 20 BP BP BP BP BP Pulse Ox 08/13/19 08:00 08/13/19 07:59 150/85 155/88 152/90 93 L 08/13/19 04:00 155/80 91 L 08/13/19 00:00 128/70 94 L 08/12/19 20:00 129/72 93 L 08/12/19 19:10 160/83 90 L 08/12/19 18:22 133/98 91 L 08/12/19 18:00 133/98 08/12/19 17:00 08/12/19 16:15 145/80 08/12/19 15:46 08/12/19 15:31 158/104 91 L 08/12/19 15:13 117/70 81 L Intake and Output 08/12/19 08/13/19 08/13/19 22:59 06:59 14:59 Intake Total 553.0 Output Total 700 Balance 553.0 -700 Intake: Intake, IV Titration 553.0 Amount Heparin Sod,Pork in 0.45% 65.5 NaCl 25,000 unit In 0.45 % NaCl 1 250ml.bag @ 12 UNITS/KG/HR 10.07 mls/hr IV .Q24H [facility] Rx#: [id number] Sodium Chloride 0.9% 1, 487.5 000 ml @ 75 mls/hr IV . [id number] [facility] Rx#:[id number] Output: Urine 700 Other: Voiding Method Urinal Urinal Toilet Urinal # Voids 1 # Bowel Movements 1 Weight 83.915 kg 81.5 kg GENERAL EXAM: Alert, very pleasant, 74-year-old white male, with facial abrasions on his nose and his upper lip, 4 L of oxygen with a pulse ox of 93% comfortable in no apparent distress. HEAD: Normocephalic/atraumatic. EYES: Normal reaction of pupils, equal size. Conjunctiva pink, sclera white. NOSE: Clear with pink turbinates. THROAT: No erythema or exudates. NECK: No masses, no JVD, no thyroid enlargement, no adenopathy. CHEST: No chest wall deformity. Symmetrical expansion. LUNGS: Equal air entry with velcro like crackles at bilateral bases, no wheeze, rhonchi or dullness. CVS: Regular rate and rhythm, normal S1 and S2, no gallops, no murmurs, no rubs ABDOMEN: Soft, nontender. No hepatosplenomegaly, normal bowel sounds, no guarding or rigidity. EXTREMITIES: No clubbing, no edema, no cyanosis, 2+ pulses and upper and lower extremities. MUSCULOSKELETAL: Muscle strength and tone normal. SPINE: No scoliosis or deformity SKIN: No rashes CENTRAL NERVOUS SYSTEM: Alert and oriented -3. No focal deficits, tone is normal in all 4 extremities. PSYCHIATRIC: Alert and oriented -3. Appropriate affect. Intact judgment and insight. Results - Laboratory Findings CBC and BMP: 08/13/19 06:31 08/13/19 06:31 PT/INR, D-dimer PT 10.7 sec (9.0-12.0) 08/12/19 16:14 INR 1.0 (<1.2) 08/12/19 16:14 Abnormal lab findings: Abnormal Labs 08/12/19 08/12/19 08/12/19 15:29 15:35 15:35 WBC 11.5 H RBC 6.41 H Hgb 19.1 H* Hct 56.6 H Neutrophils # 9.4 H APTT Glucose 120 H POC Glucose (mg/dL) 130 H Troponin I Total Protein 8.6 H Urine Protein 08/12/19 08/12/19 08/12/19 15:35 17:22 22:20 WBC RBC Hgb Hct Neutrophils # APTT 51.3 H Glucose POC Glucose (mg/dL) Troponin I 0.064 H* Total Protein Urine Protein Trace H 08/12/19 08/13/19 08/13/19 22:20 04:15 06:31 WBC RBC Hgb Hct Neutrophils # APTT 46.8 H Glucose POC Glucose (mg/dL) Troponin I 0.058 H* 0.040 H* Total Protein Urine Protein - Diagnostic Findings Chest x-ray: report reviewed, image reviewed Additional studies: Results of the brain CT reviewed Assessment and Plan Plan: Assessment: #1. Syncopal episodes of unclear etiology, under investigation #2. Idiopathic pulmonary fibrosis, UIP, on Esbriet, currently stable. Patient's baseline FEV1 is 2.53 L or 82% of predicted with FVC of 3.4 L or 81% of predicted consistent with a restrictive pulmonary defect, and decreased diffusion capacity of 23% of predicted #3. Elevated troponins, patient has been evaluated by cardiology, and is awaiting cardiac catheterization today #4. Previous history of myocardial infarction #5. History of prostate cancer follows with Dr. Latham #6. Hyperlipidemia #7. Former smoker, patient quit smoking 30 years ago, does carry [id number] smoking history #8. Benign paroxysmal positional vertigo Plan: Pulmonary status is stable, he is at his baseline, no increased cough or congestion, chest x-ray has been reviewed with questionable atelectasis or infiltrate in the right perihilar area, clinically patient does not appear to be in any distress. No recurrent episodes of syncope since admission, patient is scheduled for heart catheterization today. Patient's labs are not suggestive of any chronic hypercapnia, outpatient PFTs have been reviewed showing restrictive pulmonary defect, with decreased diffusion capacity and chronic hypoxemia. We will continue to follow and monitor the patient's status, his Esbriet can be resumed. Will await further recommendations from cardiology based on the findings of the heart catheterization I performed a history & physical examination of the patient and discussed their management with my nurse practitioner, Reena Hawk. I reviewed the nurse practitioner's note and agree with the documented findings and plan of care. Lung sounds are positive for velcro like crackles. The findings and the impression was discussed with the patient. I attest to the documentation by the nurse practitioner. Time with Patient: Greater than 30
--- NOTE | 2019-08-13 11:27 | P.HPIM ---
History of Present Illness H&P Date: 08/12/19 Chief Complaint: Syncope, elevated troponin with possible non-ST CA, polycyt hemia, pulmonary 74-year-old male one of Dr. Loving patient with multiple medical problem who was seen last time in March 2018 for severe fatigue weakness and weight loss was diagnosed with idiopathic pulmonary fibrosis of the time via x- ray and PFT and pulmonary consultation also patient has been suffering from prostate cancer was treated with Dr. Huynh, history of myocardial infarction over 40 years ago withstent placement of the time. Continue to have history of hyperlipidemia mild depression remote history of tobacco use patient has not smoked in the last 2 years also patient had seen Dr. Nato Sauceda pulmonary in the last few weeks with several episode of syncope not been explained despite for any further testing including MRI of the brain multiple blood work no finding was confirmed. Patient was supposed to see cardiology for further workup on his syncope he presented to [facility] department today after had 2 episode of further syncope both of them more associated with the lack of consciousness with no injury or trauma both episodes were witnessed at the time he denies any palpitation or chest pain with the concern of patient problem he found significant hypoxia as well [facility] with CT of the brain showed small vessel disease blood work showed significant sign of polycythemia which is a lot worse than what he had 2 months ago the blood test. Troponin to my surprise was significantly elevated with no significant chest pain that patient is complaining of no major abnormality on EKG. We'll admit patient to the hospital troponin 3 will be done consult cardiology and follow through with echo and other testing see patient will require to go for intervention. Also with the recurrent episode and worsening polycythemia not a clear whether patient had any sign and symptom of narcolepsy worth watching and having to go possibly for sleep study or to be seen by sleep medicine for the purpose with h is polycythemia been more concerned specially with the pulmonary fibrosis Review of Systems CONSTITUTIONAL: Well-developed no acute respiratory distress. EYES: No icterus sclerae, no conjunctivitis. EARS, NOSE, MOUTH, THROAT, and FACE: No sore throat, lymphadenopathy, carotid bruits or deformity. RESPIRATORY: Has shortness of breath mild cough wheezes. CARDIOVASCULAR: Positive syncope with no chest pain positive mild palpitation PND and orthopnea with mild dyspnea. GASTROINTESTINAL: No Abd pain, Nausea or vomiting, no Diarrhea or constipation, No GI Bleed, no distention or masses. GENITOURINARY: Negative for Hematuria or UTI, no kidney stones. INTEGUMENT/BREAST: Negative for any muscular injury with mild osteoarthritis.. HEMATOLOGIC/LYMPHATIC: Negative for bleed or purpura. MUSCULOSKELTAL: Negative for Myalgia or arthralgia. NEURLOGICAL: Positive syncope 2 today with multiple episode last 6 weeks. BEHAVIORAL/PSYCH: Negative. ENDOCRINE: Negative. Past Medical History Past Medical History: Cancer, Hyperlipidemia, Myocardial Infarction (CA), Prostate Disorder Additional Past Medical History / Comment(s): prostate cancer, sees DR Huynh currently, pulmonary fibrosis Last Myocardial Infarction Date:: 1989 History of Any Multi-Drug Resistant Organisms: None Reported Past Surgical History: Appendectomy Additional Past Surgical History / Comment(s): colonoscopy with Dr. Downs, right eye retna, bilateral cataract Past Anesthesia/Blood Transfusion Reactions: No Reported Reaction Smoking Status: Former smoker - Past Family History Father Family Medical History: Cancer Additional Family Medical History / Comment(s): Father at age 65 from lymphoma. Mother Additional Family Medical History / Comment(s): Mother at age 85 with history of coronary artery disease. Patient has one sister who has had breast cancer. Patient has 1 son and 1 daughter with no major medical problems. Medications and Allergies Home Medications Medication Instructions Recorded Confirmed Type Citalopram Hydrobromide [CeleXA] 20 mg PO HS 11/07/17 08/13/19 History ALPRAZolam [Xanax] 1 mg PO HS 08/12/19 08/12/19 History C,E,Zinc,Copper 11/Gyscg3h/Lut 1 cap PO HS 08/12/19 08/12/19 History [Ocuvite Adult 50 Plus Softgel] Gabapentin [Neurontin] 300 mg PO HS 08/12/19 08/12/19 History Melatonin 10 mg PO HS 08/12/19 08/12/19 History Pirfenidone [Esbriet] 801 mg PO AC-TID 08/12/19 08/12/19 History Tamsulosin [Flomax] 0.8 mg PO HS 08/12/19 08/12/19 History Triamcinolone 0.1% Cream [Kenalog 1 applicatio TOPICAL BID PRN 08/12/19 08/12/19 History 0.1% Cream] Allergies Allergy/AdvReac Type Severity Reaction Status Date / Time metoprolol [From Lopressor] AdvReac Nausea & Verified 08/12/19 16:55 Vomiting Physical Exam Vitals: Vital Signs Temp Pulse Pulse Resp BP BP Pulse Ox 08/12/19 19:10 98.2 F 78 20 160/83 90 L 08/12/19 18:22 97.7 F 64 20 133/98 91 L 08/12/19 18:00 97.7 F 64 20 133/98 08/12/19 17:00 97.7 F 20 08/12/19 16:15 145/80 08/12/19 15:46 20 08/12/19 15:31 82 18 158/104 91 L 08/12/19 15:13 97.7 F 93 20 117/70 81 L Intake and Output 08/12/19 08/12/19 08/12/19 06:59 14:59 22:59 Other: Weight 83.915 kg General Appearance: Alert, cooperative, no distress, appears stated age. Neck HEENT: Supple, no lymphadenopathy, no thyroid enlargement, no carotid bruits. Lungs: Decreased breath sounds bilaterally with fine rhonchi specially in the right base no crackles Chest Wall: Chest wall normal expansion with deep inspiration no tenderness and no deformity was found on exam, no costochondral pain or discomfort. Heart: Regular rate and rhythm, S1, S2 normal, no murmur, rub or gallop. Back: Symmetric, no curvature, ROM normal, no CVA tenderness. Abdomen: Soft, non-tender, bowel sounds active all four quadrants, no masses, no organomegaly. Extremities: Extremities normal, atraumatic, no cyanosis or edema. Pulses: 2+ and symmetric. Skin: Skin color, texture, tugor normal, no rashes or lesions. Neurologic: Alert oriented x3 cranial nerves II through XII intact, no motor deficit, no abnormal balance or gait. Results CBC & Chem 7: 08/13/19 06:31 08/13/19 06:31 Labs: Abnormal Lab Results - Last 24 Hours (Table) 08/12/19 08/12/19 08/12/19 Range/Units 15:29 15:35 15:35 WBC 11.5 H (3.8-10.6) k/uL RBC 6.41 H (4.30-5.90) m/uL Hgb 19.1 H* (13.0-17.5) gm/dL Hct 56.6 H (39.0-53.0) % Neutrophils # 9.4 H (1.3-7.7) k/uL Glucose 120 H (74-99) mg/dL POC Glucose (mg/dL) 130 H (75-99) mg/dL Troponin I (0.000-0.034) ng/mL Total Protein 8.6 H (6.3-8.2) g/dL Urine Protein (Negative) 08/12/19 08/12/19 Range/Units 15:35 17:22 WBC (3.8-10.6) k/uL RBC (4.30-5.90) m/uL Hgb (13.0-17.5) gm/dL Hct (39.0-53.0) % Neutrophils # (1.3-7.7) k/uL Glucose (74-99) mg/dL POC Glucose (mg/dL) (75-99) mg/dL Troponin I 0.064 H* (0.000-0.034) ng/mL Total Protein (6.3-8.2) g/dL Urine Protein Trace H (Negative) Thrombosis Risk Factor Assmnt - DVT/VTE Prophylaxis DVT/VTE Prophylaxis: Pharmacologic Prophylaxis ordered, Mechanical Prophylaxis ordered - Choose All That Apply Each Risk Factor Represents 2 Points: Age 61-74 years Thrombosis Risk Factor Assessment Total Risk Factor Score: 2 Thrombosis Risk Factor Assessment Level: Low Risk Assessment and Plan Plan: 1 multiple syncopal episode: Not a clear etiology patient might have significant polycythemia can explain his syncope related to thrombus or mini stroke also with the polycythemia and pulmonary fibrosis patient might have narcolepsy which with check and testing with sleep medicine. 2 elevated troponin: With possible non-ST CA, patient be seen cardiology, CK with troponin 3 will be done if elevated troponin patient might benefit from going for heart cath. 3 pulmonary fibrosis: Was diagnosed in 2018 has been seen pulmonary on regular basis still might benefit from being on O2 along with bronchodilator and steroid inhaler. 4 severe polycythemia: Not a clear etiology but possibility of obstructive sleep apnea/narcolepsy also if this is primary polycythemia might need to see hematology and might benefit from bone marrow biopsy. Also this is polycythemia secondary to obstructive sleep apnea.the possibility of patient having n onsustained A. fib can be very high with shattering thrombosis can explain the syncopal episode as an episode of TIA. 5 prostate cancer: Has been treated with Dr. Huynh and see him on regular basis. 6 anxiety attacks and depression has been on Celexa and alprazolam. 7 neuropathy: Patient remain on gabapentin 300 mg daily at bedtime. 8 hyperlipidemia: Was on simvastatin before. 9 previous history of CA will repeat another echocardiogram this admission. 10 severe BPH: Patient has been using tamsulosin lately. 11 GI prophylaxis: Patient be on Pepcid 20 mg daily. 12 DVT prophylaxis: Specially with the polycythemia will place patient on heparin subcutaneous for now. CODE STATUS: Full code. Admit patient to inpatient status for more than 2 nights.
--- NOTE | 2019-08-13 13:43 | P.PN ---
Subjective Progress Note Date: 08/13/19 Principal diagnosis: Syncope, elevated troponin with possible non-ST PR, polycythemia, pulmonary 74-year-old male one of Dr. Loving patient with multiple medical problem who was seen last time in March 2018 for severe fatigue weakness and weight loss was diagnosed with idiopathic pulmonary fibrosis of the time via x- ray and PFT and pulmonary consultation also patient has been suffering from prostate cancer had treatment with Dr Huynh,, history of myocardial infarction over 40 years ago withstent placement of the time. Continue to have history of hyperlipidemia mild depression remote history of tobacco use patient has not smoked in the last 2 years also patient had seen Dr. Nato Sauceda pulmonary in the last few weeks with several episode of syncope not been explained despite for any further testing including MRI of the brain multiple blood work no finding was confirmed. Patient was supposed to see cardiology for further workup on his syncope he presented to [facility] department today after had 2 episode of further syncope both of them more associated with the lack of consciousness with no injury or trauma both episodes were witnessed at the time he denies any palpitation or chest pain with the concern of patient problem he found significant hypoxia as well ended up coming to [facility] surprisingly testing with CT of the brain showed small vessel disease blood work showed significant sign of polycythemia which is a lot worse than what he had 2 months ago the blood test. Troponin to my surprise was significantly elevated with no significant chest pain that patient is complaining of no major abnormality on EKG. We'll admit patient to the hospital troponin 3 will be done consult cardiology and follow through with echo and other testing see patient will require to go for intervention. Also with the recurrent episode and worsening polycythemia not a clear whether patient had any sign and symptom of narcolepsy worth watching and having to go possibly for sleep study or to be seen by sleep medicine for the purpose with his polycythemia been more concerned specially with the pulmonary fibrosis 08/13: Troponin were elevated patient be going for heart cath today, also echocardiogram previously showed severe pulmonary hypertension which can be a big contributing factor to withdraw with the patient this point. Objective - Vital Signs Vital signs: Vital Signs Temp 97.8 F 08/13/19 07:59 Pulse 72 08/13/19 07:59 Resp 16 08/13/19 08:00 BP 152/90 08/13/19 07:59 Pulse Ox 93 L 08/13/19 07:59 Intake & Output 08/12/19 08/13/19 08/13/19 18:59 06:59 18:59 Intake Total 553.0 Output Total 700 Balance 553.0 -700 Weight 83.915 kg 83.915 kg 81.5 kg Intake: Intake, IV Titration 553.0 Amount Heparin Sod,Pork in 0.45% 65.5 NaCl 25,000 unit In 0.45 % NaCl 1 250ml.bag @ 12 UNITS/KG/HR 10.07 mls/hr IV .Q24H BRENDON Rx#: [id number] Sodium Chloride 0.9% 1, 487.5 000 ml @ 75 mls/hr IV . [id number] BRENDON Rx#:[id number] Output: Urine 700 Other: Voiding Method Urinal Toilet Urinal # Voids 1 # Bowel Movements 1 - Exam Review of Systems CONSTITUTIONAL: Well-developed no acute respiratory distress. EYES: No icterus sclerae, no conjunctivitis. EARS, NOSE, MOUTH, THROAT, and FACE: No sore throat, lymphadenopathy, carotid bruits or deformity. RESPIRATORY: Has shortness of breath mild cough wheezes. CARDIOVASCULAR: Positive syncope with no chest pain positive mild palpitation PND and orthopnea with mild dyspnea. GASTROINTESTINAL: No Abd pain, Nausea or vomiting, no Diarrhea or constipation, No GI Bleed, no distention or masses. GENITOURINARY: Negative for Hematuria or UTI, no kidney stones. INTEGUMENT/BREAST: Negative for any muscular injury with mild osteoarthritis.. HEMATOLOGIC/LYMPHATIC: Negative for bleed or purpura. MUSCULOSKELTAL: Negative for Myalgia or arthralgia. NEURLOGICAL: Positive syncope 2 today with multiple episode last 6 weeks. BEHAVIORAL/PSYCH: Negative. ENDOCRINE: Negative. Physical Exam General Appearance: Alert, cooperative, no distress, appears stated age. Neck HEENT: Supple, no lymphadenopathy, no thyroid enlargement, no carotid bruits. Lungs: Decreased breath sounds bilaterally with fine rhonchi specially in the right base no crackles Chest Wall: Chest wall normal expansion with deep inspiration no tenderness and no deformity was found on exam, no costochondral pain or discomfort. Heart: Regular rate and rhythm, S1, S2 normal, no murmur, rub or gallop. Back: Symmetric, no curvature, ROM normal, no CVA tenderness. Abdomen: Soft, non-tender, bowel sounds active all four quadrants, no masses, no organomegaly. Extremities: Extremities normal, atraumatic, no cyanosis or edema. Pulses: 2+ and symmetric. Skin: Skin color, texture, tugor normal, no rashes or lesions. Neurologic: Alert oriented x3 cranial nerves II through XII intact, no motor d eficit, no abnormal balance or gait. - Labs CBC & Chem 7: 08/13/19 06:31 08/13/19 06:31 Labs: Abnormal Lab Results - Last 24 Hours (Table) 08/12/19 08/12/19 08/12/19 Range/Units 15:29 15:35 15:35 WBC 11.5 H (3.8-10.6) k/uL RBC 6.41 H (4.30-5.90) m/uL Hgb 19.1 H* (13.0-17.5) gm/dL Hct 56.6 H (39.0-53.0) % Neutrophils # 9.4 H (1.3-7.7) k/uL APTT (22.0-30.0) sec Glucose 120 H (74-99) mg/dL POC Glucose (mg/dL) 130 H (75-99) mg/dL Troponin I (0.000-0.034) ng/mL Total Protein 8.6 H (6.3-8.2) g/dL Urine Protein (Negative) 08/12/19 08/12/19 08/12/19 Range/Units 15:35 17:22 22:20 WBC (3.8-10.6) k/uL RBC (4.30-5.90) m/uL Hgb (13.0-17.5) gm/dL Hct (39.0-53.0) % Neutrophils # (1.3-7.7) k/uL APTT 51.3 H (22.0-30.0) sec Glucose (74-99) mg/dL POC Glucose (mg/dL) (75-99) mg/dL Troponin I 0.064 H* (0.000-0.034) ng/mL Total Protein (6.3-8.2) g/dL Urine Protein Trace H (Negative) 08/12/19 08/13/19 08/13/19 Range/Units 22:20 04:15 06:31 WBC (3.8-10.6) k/uL RBC (4.30-5.90) m/uL Hgb (13.0-17.5) gm/dL Hct (39.0-53.0) % Neutrophils # (1.3-7.7) k/uL APTT 46.8 H (22.0-30.0) sec Glucose (74-99) mg/dL POC Glucose (mg/dL) (75-99) mg/dL Troponin I 0.058 H* 0.040 H* (0.000-0.034) ng/mL Total Protein (6.3-8.2) g/dL Urine Protein (Negative) Assessment and Plan Plan: 1 multiple syncopal episode: Not a clear etiology patient might have significant polycythemia can explain his syncope related to thrombus or mini stroke also with the polycythemia and pulmonary fibrosis patient might have narcolepsy which with check and testing with sleep medicine. 2 elevated troponin: With possible non-ST PR, patient be seen cardiology, CK with troponin 3 will be done if elevated troponin patient might benefit from going for heart cath. 3 pulmonary fibrosis: Was diagnosed in 2018 has been seen pulmonary on regular basis still might benefit from being on O2 along with bronchodilator and steroid inhaler. 4 severe polycythemia: Not a clear etiology but possibility of obstructive sleep apnea/narcolepsy also if this is primary polycythemia might need to see hematology and might benefit from bone marrow biopsy. Also this is polycythemia secondary to obstructive sleep apnea.the possibility of patient having nonsustained A. fib can be very high with shattering thrombosis can explain the syncopal episode as an episode of TIA. 5 prostate cancer: Has been treated with Dr. Huynh and see him on regular basis. 6 anxiety attacks and depression has been on Celexa and alprazolam. 7 neuropathy: Patient remain on gabapentin 300 mg daily at bedtime. 8 hyperlipidemia: Was on simvastatin before. 9 previous history of PR will repeat another echocardiogram this admission. 10 severe BPH: Patient has been using tamsulosin lately.
[2019-08-13] MEDS ORDERED: LIDOCAINE 1% INJ 10MG/ML (20 ML MDV) SQ ONE ×2 (14:11→19:01)
[2019-08-13] MEDS ORDERED: fentaNYL (PF) 50 MCG/ML 2 ML AMP IV ONE (14:12)
[2019-08-13] MEDS ORDERED: VERAPAMIL SYRINGE (5 MG/10 ML) INTRAARTER ONE (14:14)
[2019-08-13] MEDS ORDERED: MIDAZOLAM 2 MG/2 ML VIAL IV ONE ×2 (14:16→19:00)
[2019-08-13] MEDS ORDERED: IV FLUID CONTINUATION 300 ML IV ONE (14:17)
[2019-08-13] MEDS ORDERED: IOPAMIDOL-370 125ML BTL INJ ONE (14:38)
[2019-08-13] MEDS: NITROGLYCERIN 1000MCG/10ML SYRINGE INTRACORON ONE ×2 (14:41→14:46)
[2019-08-13] MEDS ORDERED: ADENOSINE 90 MG in SODIUM CHLORIDE 0.9% 60 ML IVP ONE (14:42)
[2019-08-13] MEDS ORDERED: SODIUM CHLORIDE 0.9% 500 ML 500 ML IV ONE (14:56)
[2019-08-13] MEDS ORDERED: CLOPIDOGREL 75 MG TAB PO ONE (14:56)
[2019-08-13] MEDS ORDERED: IOPAMIDOL-370 100ML BTL INJ ONE (15:08)
[2019-08-13] MEDS ORDERED: RX INFO: IV CONTRAST WAS GIVEN 1 EACH MISC MISCELLANE PRN (15:23)
[2019-08-13] MEDS ORDERED: ZOLPIDEM 5 MG TAB PO PRN (15:23)
[2019-08-13] MEDS ORDERED: ATROPINE SULFATE 0.1 MG/ML 10ML SYRINGE IV PRN (15:23)
[2019-08-13] MEDS ORDERED: MAG HYDROX/AL HYDROX/SIMETH 30 ML CUP PO PRN (15:23)
[2019-08-13] MEDS ORDERED: SODIUM CHLORIDE 0.9% 1,000 ML IV SCH ×2 (15:30→16:15)
[2019-08-13] MEDS ORDERED: IV FLUID CONTINUATION 800 ML IV ONE (18:50)
[2019-08-13] MEDS ORDERED: LIDOCAINE 1% INJ 10MG/ML (20 ML MDV) ONE (18:52)
--- NOTE | 2019-08-13 19:11 | P.PCN ---
Preoperative Diagnosis: Loop monitor implant Primary physicians: Dr. Loving Regulatory Affairs Manager: Dr. Quintero Indication: Recurrent syncope Patient was brought to the EP lab in a fasting state. Written informed consent was obtained prior to the procedure. The left pectoral area was prepped and draped per protocol. Intravenous antibiotic was administered preoperatively. A subcutaneous Loop monitor was implanted successfully and the wound was closed per protocol. The device was programmed to detect significant amarilis- arrhythmic and tachy-arrhythmic events, per protocol. Device and programming details: Syncope protocol Patient underwent EP procedure under conscious sedation/moderate sedation, monitoring of the level of consciousness and physiologic parameters including but not limited to vital signs and oxygenation. Patient tolerated the procedure well without any acute complications. Start time: 1900 Stop time: 1908
[2019-08-13] MEDS ORDERED: TAMSULOSIN 0.4 MG CAP.ER.24H PO SCH (21:00)
[2019-08-13] MEDS ORDERED: [UNRECOGNIZED DRUG - OTHER] PO SCH (21:00)
[2019-08-13] MEDS ORDERED: ALPRAZolam 1 MG TAB PO SCH (21:00)
[2019-08-13] MEDS ORDERED: LUT PO SCH (21:00)
[2019-08-13] MEDS ORDERED: C E ZINC COPPER PO SCH (21:00)
[2019-08-13] MEDS ORDERED: MELATONIN 5 MG TABLET PO SCH (21:00)
[2019-08-13] MEDS ORDERED: GABAPENTIN 300 MG CAP PO SCH (21:00)
[2019-08-13] MEDS ORDERED: CITALOPRAM HYDROBROMIDE 20 MG TAB PO SCH ×2 (21:00)
[2019-08-13] MEDS ORDERED: OMEGA3S PO SCH (21:00)
--- NOTE | 2019-08-13 22:22 | CC ---
CARDIAC CATHETERIZATION REPORT Mr. Ventura is a 74-year-old male with a known history of coronary artery disease and prior myocardial infarction about 20 years ago who presented with recurrent syncope with mild troponin elevation. He underwent cardiac catheterization, was found to have chronically occluded right coronary artery with moderate significant disease involving the mid LAD in the first obtuse marginal branch. Recommendation made regarding fractional flow reserve measurement and depending on the results, further intervention will be made. Those findings and recommendations were discussed with the patient who is in full understanding and agreement. PROCEDURE IN DETAIL: Using 6-Sami FL 3.5 guiding catheter and after cannulating the left main, a Doppler flow wire was introduced into the first obtuse marginal branch. The fraction flow reserve was measured at 0.9 and the IFR was 1.01. Subsequently, the wire was withdrawn and introduced in the LAD. The IFR was 0.9 and the FFR was 0.76 after an infusion of adenosine per protocol. At that time, a 3.5 x 28 mm Xience Mena stent was advanced, deployed and post dilated to 16 atmospheres. Following that, the balloon was removed and a 3.5 x 15 mm NC Trek balloon was advanced and one inflation at 16 atmospheres was done. After the last inflation, after appropriate wait, the balloon and the guidewire were withdrawn back in the guiding catheter. Images were obtained, repeated. Those images reveal stable successful stenting. At that point, left ventricular end- diastolic pressure was calculated. Following that, catheter and sheath were removed. Hemostasis was obtained with deployment of a TR band. There was no immediate complication. Patient is returned to his room in stable condition. Of note, the patient had no chest discomfort with the inflation and no significant EKG changes. He received a total of 10,000 units of intravenous heparin and ACT was monitored. He received an oral loading dose of clopidogrel. RESULTS: 1. Nonhemodynamically significant lesion in the first obtuse marginal branch. 2. Hemodynamically significant lesion in the mid LAD. 3. A successful stenting of the mid LAD with reduction of stenosis from 60-70 percent to 0%. RECOMMENDATIONS: Patient will be continued on aspirin, Plavix and statin. The importance of dual antiplatelet treatment were discussed with the patient and his family who are in full understanding and agreement. The patient will be proceeding with a loop recorder tomorrow to further evaluate the syncopal episode and guide treatment. Those findings and recommendations were discussed with him and his family. Duration of procedure: 61 minutes. MMBLAISE / TUCKERN: [id number] /
--- NOTE | 2019-08-13 22:28 | CC ---
CARDIAC CATHETERIZATION REPORT Mr. Ventura is a 74-year-old male with a history of myocardial infarction about 20 years ago. He has been having recurrent episodes of syncope over the last few months. The syncope episodes are random, not associated with physical activity, and very brief. He had 2 syncopal episodes yesterday with some discomfort in the chest and came into the emergency room. He had minimal troponin elevation with no significant changes on his EKG, but because of his recurrent symptoms and his troponin elevation, recommendation was made regarding cardiac catheterization. The procedure, its risks and complications were discussed with the patient, who was in full understanding and agreement. PROCEDURE: Patient was brought to the electronic lab technician in a fasting, semi-sedated state after receiving fentanyl and Benadryl and achieving a moderate conscious sedated state. Using Xylocaine anesthesia and Seldinger technique, a 6-Swiss sheath was introduced in the right radial artery. Selective right and left coronary angiography was performed using 5-Swiss 3-1/2 bend, right and left Amber catheters. Multiple views were taken of the coronary arteries, including hemiaxial views. Following that, angioplasty and stenting was performed. Following that, a 5-Swiss tight pigtail catheter was introduced into his left ventricle and pressures were calculated. Following that, catheters and sheaths were removed. Hemostasis was obtained with deployment of a TR band. There was no immediate complication. Patient was returned to his room in stable condition. Of note, the patient received intra-arterial verapamil as well as 5000 units of intravenous heparin. FINDINGS: FLUOROSCOPY: There is calcification involving all the coronary arteries. LEFT MAIN: This is a large-sized vessel bifurcating into left circumflex, left anterior descending artery. Left main coronary artery has a mild plaque proximally of 20%. The rest of the vessel has no high-grade stenosis. LEFT ANTERIOR DESCENDING ARTERY: This is a large-sized vessel reaching toward the apex with a wrap around the apex segment giving rise to 3 diagonal branches. The left anterior descending artery in the mid segment after the takeoff of the diagonal branch has eccentric 60% to 70% plaque. The rest of the vessel has no high-grade stenosis. LEFT CIRCUMFLEX: This is a large nondominant vessel giving rise to 3 obtuse marginal branches. The first obtuse marginal branch has a 50% to 60% plaque proximally. The left circumflex is tortuous before the takeoff of the second obtuse marginal branch and has about a 40% plaque. The rest of the vessel has no high-grade stenosis. RIGHT CORONARY ARTERY: This vessel is totally occluded in the mid segment with ipsilateral collaterals and contralateral collaterals from the LAD filling up the distal PDA and PLV. LEFT VENTRICULOGRAM: Left ventriculogram was not performed. HEMODYNAMICS: There was a 20 mmHg gradient across the aortic valve. Left ventricular end-diastolic pressure was 20 mmHg. CONCLUSION: 1. Calcified coronary arteries. 2. Chronically occluded right coronary artery with ipsilateral collaterals and contralateral collaterals. 3. Borderline significant lesion in the mid LAD and the first obtuse marginal branch. 4. Mild to moderate disease in the left circumflex. RECOMMENDATIONS: In view of findings and anatomy, I have recommended proceeding with fractional flow reserve measurement of the LAD and the first obtuse marginal branch. Further recommendations will be dependent on that. Those findings and recommendation were discussed with the patient, and he is in full understanding and agreement. MMBLAISE / MARIANNA: [id number] /
--- NOTE | 2019-08-13 22:28 | LTR ---
DATE OF SERVICE: 08/13/[address] Loving: I had the pleasure of performing cardiac catheterization including angioplasty and stenting on Mr. Ventura at [facility] on August 13 and a full copy of procedure note will be forwarded to you. In brief, he was found to have chronically occluded right coronary artery with collaterals from the left system with moderate severe disease involving the first obtuse marginal branch as well as the mid LAD. He underwent fractional flow reserve measurement of both vessels and showed nonsignificant lesion in the obtuse marginal branch and a significant lesion in the LAD that was stented with good results. He will proceed to undergo a loop recorder tomorrow by Dr. Quintero to further evaluate the etiology of his syncope. I will keep you updated his progress. Thank you again for allowing me to participate in his care. Please feel free to call for any questions. Sincerely, RADHA / MARIANNA: [id number] /
[2019-08-14 06:41] LABS: Basophils % (A) 0 %; Eosinophils # (A) 0.2 k/uL (0-0.7); Eosinophils % (A) 2 %; HCT 48.6 % (39.0-53.0); HGB 16.5 gm/dL (13.0-17.5); Lymphocytes # (A) 1.1 k/uL (1.0-4.8); Lymphocytes % (A) 10 %; MCH 29.8 pg (25.0-35.0); MCHC 33.9 g/dL (31.0-37.0); MCV 88.1 fL (80.0-100.0); Mean Platelet Volume 7.2; Monocytes # (A) 0.7 k/uL (0-1.0); Monocytes % (A) 7 %; Neutrophils % (A) 79 %; Platelet Count 246 k/uL (150-450); RBC 5.52 m/uL (4.30-5.90); RDW 13.8 % (11.5-15.5); WBC 10.1 k/uL (3.8-10.6)
[2019-08-14 06:58] LABS: Albumin 3.6 g/dL (3.5-5.0); Calcium 8.8 mg/dL (8.4-10.2); Potassium 4.4 mmol/L (3.5-5.1); Total Bilirubin 0.7 mg/dL (0.2-1.3); Total Protein 6.5 g/dL (6.3-8.2)
[2019-08-14] MEDS: Pirfenidone [Esbriet] 801 MG PO SCH ×3 (06:58→14:10)
[2019-08-14] MEDS: FAMOTIDINE 20 MG TAB PO SCH (08:41)
--- NOTE | 2019-08-14 08:43 | ECHOF ---
Referral Reason:limited to assess AVR MEASUREMENTS -------- HEIGHT: 172.7 cm WEIGHT: 81.2 kg BP: RVIDd: 3.8 cm (< 3.3) Ao Diam: 3.3 cm (2.0 - 3.7) AV Cusp: 0.9 cm (1.5 - 2.6) LA Diam: 3.9 cm (2.7 - 3.8) MV EXCURSION: 15.965 mm (> 18.000) MV EF SLOPE: 49 mm/s (70 - 150) EPSS: 0.2 cm AV maxP.74 mmHg AV meanP.74 mmHg RAP: 15.00 mmHg RVSP: 70.97 mmHg FINDINGS -------- Sinus rhythm. Limited Study to eval AVR: Echo done at [facility]. Overall left ventricular systolic function is low-normal with, an EF between 50 - 55 %. Mid inferio r LV wall motion is hypokinetic. The right ventricle is moderate to severely enlarged. There is no evidence of aortic regurgitation. There is mild aortic stenosis present. Peak/mean gr adient across the Aortic Valve is 16.74mmHg / 8.74mmHg. No regurgitation noted There is severe pulmonary hypertension. The right ventricular systolic pre ssure, as measured by Doppler, is 70.97mmHg. CONCLUSIONS -------- 1. Sinus rhythm. 2. Limited Study to eval AVR: Echo done at [facility]. 3. Overall left ventricular systolic function is low-normal with, an EF between 50 - 55 %. 4. Mid inferior LV wall motion is hypokinetic. 5. There is no evidence of aortic regurgitation. 6. There is mild aortic stenosis present. 7. Peak/mean gradient across the Aortic Valve is 16.74mmHg / 8.74mmHg. 8. No regurgitation noted 9. There is severe pulmonary hypertension. 10. The right ventricular systolic pressure, as measured by Doppler, is 70.97mmHg. [employer]AL MANAGER [employer]: Shannan Rush RDCS
[2019-08-14] MEDS ORDERED: ASPIRIN 81 MG PO SCH ×2 (09:00)
[2019-08-14] MEDS ORDERED: CLOPIDOGREL 75 MG TAB PO SCH (09:00)
[2019-08-14 11:13] VITALS: RESP 16; TEMP 97.9
--- NOTE | 2019-08-14 12:23 | PN ---
PROGRESS NOTE Mr. Ventura is a 74-year-old male who has history of recurrent syncope, had an mild ripple elevation of troponin and vague symptoms of chest discomfort, underwent cardiac catheterization, was found to have chronically occluded right coronary artery, moderate disease in the first obtuse marginal branch and the LAD. His fractional flow reserve of the LAD was significant, underwent stenting of that vessel. The obtuse marginal branch, FFR was non hemodynamically significant. He subsequently underwent loop recorder replacement by Dr. Quintero. He is feeling well this morning. He has no further syncopal episode. He denies any symptoms of chest pain. His breathing is unchanged. No dizziness. No palpitation. He has a history of idiopathic pulmonary fibrosis. He continues on aspirin 81 mg daily, Lipitor 80 mg daily, Plavix 75 mg daily, and Flomax. PHYSICAL EXAMINATION: Blood pressure running in the 140s to 150s with a heart rate in the 90s. LUNGS: Clear with decreased air exchange, no wheezes. HEART: Regular rate and rhythm. S1, S2. No S3. No rub. ABDOMEN: Soft, nontender. EXTREMITIES: No edema. LAB DATA: Revealed hemoglobin of 16.5. BUN and creatinine 14 and 0.99, potassium 4.4. IMPRESSION: 1. Syncopal episode of unclear etiology. Workup so far has been negative. No evidence of malignant arrhythmia or significant valve disease. 2. Obstructive coronary artery disease with stenting of the left anterior descending artery. I do not believe that this lesion is the cause of his syncope. 3. History of idiopathic pulmonary fibrosis. 4. Hypertension not documented in the past. RECOMMENDATION: I have recommended to continue present therapy. I have asked him to follow his blood pressure home and let us know about the trend. He should be able to be discharged home today and follow with Dr. Quintero next Saturday. He will follow his loop recorder and that will be helpful in further assessing the etiology of his syncope. I have discussed with him the issue of a sleep study for possible obstructive sleep apnea and he will consider that as an outpatient. MMAALIYAHL / TUCKERN: [id number] /
[2019-08-14 12:34] VITALS: BP 153/75; PULSE 81
--- NOTE | 2019-08-14 13:39 | P.PN ---
Subjective Progress Note Date: 08/14/19 Principal diagnosis: Syncopal episode This is a 74-year-old white male patient of Dr. Dutton, with past medical history of idiopathic pulmonary fibrosis, UIP, chronic hypoxic respiratory failure usually on 3 L of oxygen at home, coronary artery disease, cholesterolemia, benign paroxysmal positional vertigo, past history of smoking, currently in remission, patient does carry [id number] smoking history, who has been having episodes of syncope since May 2019. He has been seen by his primary care physician, cardiology, and neurology and he was told that her neuro logic workup was negative. Brain MRI showed probable chronic small vessel ischemia with areas of encephalomalacia, but no subacute ischemia. Carotid Doppler showed no hemodynamically significant stenosis. Echocardiogram showed preserved left ventricular systolic function with an EF of 50-55%, mild aortic stenosis, mild TR, trace MR, severe pulmonary hypertension with right-sided pressures of 60 mmHg. Yesterday patient had returned from Dr. Dutton's office, and he was bending over switch his portable oxygen to his home concentrator, when he suddenly passed out and fell on his face sustaining abrasion on his face. He struck his chest on the table as well. His was there and patient apparently was unresponsive for only seconds and then came to. No neurologic deficits, no headaches. He denied any breathing difficulty prior to that, denied any chest pain, denied any warning sign is other than he usually feels slightly tachycardic just before and tenderness he and his stomach. Brain CT in emergency department showed age-related atrophic and chronic small vessel ischemic change without acute intracranial process. Chest x-ray showed chronic changes of pulmonary fibrosis, and new right perihilar area of atelectasis/infiltrate. he denies any pulmonary complaints, he is breathing is at his baseline, there is no increased cough or congestion. EKG showed normal sinus rhythm with left bundle branch block pattern. His lab work showed a white blood cell count of 11.5, hemoglobin of 19, electrolytes and renal profile were within normal limits, troponins were 0.064, 0.058, and 0.040. Urinalysis showed no sign of infection. Patient is on Pirfenidone for his pulmonary fibrosis, however he has not taken it in the last few days because he thinks he may have developed reaction to it after having some sun exposure developed significant redness and itching and swelling on his hands, which is currently resolving. Patient is being seen by cardiology, and heart catheterizations plan for today, breathing is stable, no pulmonary complaints at this time. On 08/14/2019 patient seen in follow-up on selective care unit, he is resting comfortably in bed, he has had no recurrent syncopal episodes while inpatient, patient underwent heart catheterization with PCI and stenting of the LAD yesterday by Dr. Menjivar, and he had a loop recorder inserted by Dr. Arguello last night, denies any chest pain, vital signs have been stable, he is on 4 L of oxygen with a pulse ox of 90%. [place] any worsening shortness of breath, no fever or chills, patient is on aspirin and Plavix, and his maintenance medications for his IPF. No acute events overnight patient is anticipated to go home today Objective - Vital Signs Vital signs: Vital Signs Temp 97.9 F 08/14/19 08:00 Pulse 81 08/14/19 12:00 Resp 16 08/14/19 12:00 BP 153/75 08/14/19 12:00 Pulse Ox 90 L 08/14/19 12:00 Intake & Output 08/13/19 08/14/19 08/14/19 18:59 06:59 18:59 Intake Total 1433 480 Output Total 0019 517 1194 Balance 433 -600 -580 Weight 81.5 kg 77.4 kg Intake: IV 1193 Sodium Chloride 0.9% 1, 648 000 ml In Empty Bag 1 bag @ 1 ML/KG/HR 81.5 mls/hr IV .[id number] ONE Rx#: [id number] Oral 240 480 Output: Urine 7909 [id number] Other: Voiding Method Toilet Toilet Toilet Urinal Urinal Urinal # Voids 1 1 1 # Bowel Movements 1 - Exam GENERAL EXAM: Alert, very pleasant, 74-year-old white male, with facial abrasions on his nose and his upper lip, 4 L of oxygen with a pulse ox of 93% comfortable in no apparent distress. HEAD: Normocephalic/atraumatic. EYES: Normal reaction of pupils, equal size. Conjunctiva pink, sclera white. NOSE: Clear with pink turbinates. THROAT: No erythema or exudates. NECK: No masses, no JVD, no thyroid enlargement, no adenopathy. CHEST: No chest wall deformity. Symmetrical expansion. LUNGS: Equal air entry with velcro like crackles at bilateral bases, no wheeze, rhonchi or dullness. CVS: Regular rate and rhythm, normal S1 and S2, no gallops, no murmurs, no rubs ABDOMEN: Soft, nontender. No hepatosplenomegaly, normal bowel sounds, no guarding or rigidity. EXTREMITIES: No clubbing, no edema, no cyanosis, 2+ pulses and upper and lower extremities. MUSCULOSKELETAL: Muscle strength and tone normal. SPINE: No scoliosis or deformity SKIN: No rashes CENTRAL NERVOUS SYSTEM: Alert and oriented -3. No focal deficits, tone is normal in all 4 extremities. PSYCHIATRIC: Alert and oriented -3. Appropriate affect. Intact judgment and insight. - Labs CBC & Chem 7: 08/14/19 05:41 08/14/19 05:41 Labs: Abnormal Lab Results - Last 24 Hours (Table) 08/14/19 Range/Units 05:41 Neutrophils # 8.0 H (1.3-7.7) k/uL Assessment and Plan Plan: Assessment: #1. Syncopal episodes of unclear etiology, under investigation. Patient had a loop recorder inserted, so far no evidence of arrhythmia #2. Coronary artery disease with stenting of the left anterior descending artery on 08/13/2019 #3. Idiopathic pulmonary fibrosis, UIP, on Esbriet, currently stable. Patient's baseline FEV1 is 2.53 L or 82% of predicted with FVC of 3.4 L or 81% of predicted consistent with a restrictive pulmonary defect, and decreased diffusion capacity of 23% of predicted #4. Elevated troponins, patient has been evaluated by cardiology, and is a waiting cardiac catheterization today #5. Previous history of myocardial infarction #6. History of prostate cancer follows with Dr. Latham #7. Hyperlipidemia #8. Former smoker, patient quit smoking 30 years ago, does carry [id number] smoking history #9. Benign paroxysmal positional vertigo Plan: From pulmonary perspective patient remains stable, no acute events overnight, no recurrent episodes of syncope, arrhythmia or chest pain. No worsening shortness of breath, vital signs are stable, patient had stenting to the LAD and a loop recorder inserted, doing well, anticipated to be discharged home today. From pulmonary perspective patient is stable for discharge home if cleared by cardiology I performed a history & physical examination of the patient and discussed their management with my nurse practitioner, Reena Hawk. I reviewed the nurse practitioner's note and agree with the documented findings and plan of care. Lung sounds are positive for velcro like crackles. The findings and the impression was discussed with the patient. I attest to the documentation by the nurse practitioner. Time with Patient: Less than 30
[2019-08-14 14:01] VITALS: BMI 25.9
--- NOTE | 2019-08-14 14:44 | P.DS ---
Providers Date of admission: 08/12/19 16:36 Attending physician: Tamir Rodriguez Consults: 08/12/19 16:37 Consult Physician Routine Consulting Provider: Angelina Menjivar Consult Reason/Comments: NSTEMI, Syncope Do you want consulting provider notified?: Yes 08/12/19 21:40 Consult Physician Routine Consulting Provider: Chaka Sanderson Consult Reason/Comments: Pulmonary Fibrosis, Possible Narcolepsy with Polycythemia Do you want consulting provider notified?: Yes, Notify in am 08/13/19 15:23 Consult Physician Routine Consulting Provider: [facility] Consult Reason/Comments: Post Interventional patient Do you want consulting provider notified?: Already Contacted [facility] Course: Principal diagnosis: Syncope, elevated troponin with possible non-ST RI, polycythemia, pulmonary 74-year-old male one of Dr. Loving patient with multiple medical problem who was seen last time in March 2018 for severe fatigue weakness and weight loss was diagnosed with idiopathic pulmonary fibrosis of the time via x- ray and PFT and pulmonary consultation also patient has been suffering from prostate cancer had treatment with Dr Huynh,, history of myocardial infarction over 40 years ago withstent placement of the time. Continue to have history of hyperlipidemia mild depression remote history of tobacco use patient has not smoked in the last 2 years also patient had seen Dr. Nato Sauceda pulmonary in the last few weeks with several episode of syncope not been explained despite for any further testing including MRI of the brain multiple blood work no finding was confirmed. Patient was supposed to see cardiology for further workup on his syncope he presented to [facility] department today after had 2 episode of further syncope both of them more associated with the lack of consciousness with no injury or trauma both episodes were witnessed at the time he denies any palpitation or chest pain with the concern of patient problem he found significant hypoxia as well ended up coming to [facility] apartment surprisingly testing with CT of the brain showed small vessel disease blood work showed significant sign of polycythemia which is a lot worse than what he had 2 months ago the blood test. Troponin to my surprise was significantly elevated with no significant chest pain that patient is complaining of no major abnormality on EKG. We'll admit patient to the hospital troponin 3 will be done consult cardiology and follow through with echo and other testing see patient will require to go for intervention. Also with the recurrent episode and worsening polycythemia not a clear whether patient had any sign and symptom of narcolepsy worth watching and having to go possibly for sleep study or to be seen by sleep medicine for the purpose with his polycythemia been more concerned specially with the pulmonary fibrosis 08/13: Troponin were elevated patient be going for heart cath today, also echocardiogram previously showed severe pulmonary hypertension which can be a big contributing factor to withdraw with the patient this point. 08/14: Patient is doing very well had heart catheter and angioplasty with 1 stent placement also had loop recorder monitor last night with cardiology is more stable today no further syncope this point. Discussed the final with cardiology patient be discharged home to follow up in cardiology office in the next few days at quick stress test will be done patient be referred to cardiac rehab as an outpatient. Meanwhile no driving for the next 6 months or till final diagnoses complete. Also patient will follow with pulmonary for pulmonary hypertension and pulmonary fibrosis for further management if needed. Also for the possibility of narcolepsy and sleep apnea patient will require a sleep study in the next few weeks. Review of Systems CONSTITUTIONAL: Well-developed no acute respiratory distress. EYES: No icterus sclerae, no conjunctivitis. EARS, NOSE, MOUTH, THROAT, and FACE: No sore throat, lymphadenopathy, carotid bruits or deformity. RESPIRATORY: Has shortness of breath mild cough wheezes. CARDIOVASCULAR: Positive syncope with no chest pain positive mild palpitation PND and orthopnea with mild dyspnea. GASTROINTESTINAL: No Abd pain, Nausea or vomiting, no Diarrhea or constipation, No GI Bleed, no distention or masses. GENITOURINARY: Negative for Hematuria or UTI, no kidney stones. INTEGUMENT/BREAST: Negative for any muscular injury with mild osteoarthritis.. HEMATOLOGIC/LYMPHATIC: Negative for bleed or purpura. MUSCULOSKELTAL: Negative for Myalgia or arthralgia. NEURLOGICAL: Positive syncope 2 today with multiple episode last 6 weeks. BEHAVIORAL/PSYCH: Negative. ENDOCRINE: Negative. Physical Exam General Appearance: Alert, cooperative, no distress, appears stated age. Neck HEENT: Supple, no lymphadenopathy, no thyroid enlargement, no carotid bruits. Lungs: Decreased breath sounds bilaterally with fine rhonchi specially in the right base no crackles Chest Wall: Chest wall normal expansion with deep inspiration no tenderness and no deformity was found on exam, no costochondral pain or discomfort. Heart: Regular rate and rhythm, S1, S2 normal, no murmur, rub or gallop. Back: Symmetric, no curvature, ROM normal, no CVA tenderness. Abdomen: Soft, non-tender, bowel sounds active all four quadrants, no masses, no organomegaly. Extremities: Extremities normal, atraumatic, no cyanosis or edema. Pulses: 2+ and symmetric. Skin: Skin color, texture, tugor normal, no rashes or lesions. Neurologic: Alert oriented x3 cranial nerves II through XII intact, no motor deficit, no abnormal balance or gait. Assessment and Plan Plan: 1 multiple syncopal episode: Not a clear etiology patient might have significant polycythemia can explain his syncope related to thrombus or mini stroke also with the polycythemia and pulmonary fibrosis patient might have narcolepsy which with check and testing with sleep medicine. Heart catheter was done yesterday along with loop recorder monitor he will be following with electrophysiology as an outpatient. 2 elevated troponin: Patient went for heart cath and PCI with stent placement successfully of the LAD, also has a small lesion in the first obtuse marginal branch nonobstructive did not require any intervention. Patient was started on secondary prevention with Plavix higher dose of statin along with metoprolol and Som. 3 pulmonary fibrosis: Was diagnosed in 2018 has been seen pulmonary on regular basis still might benefit from being on O2 along with bronchodilator and steroid inhaler. 4 severe polycythemia: Not a clear etiology but possibility of obstructive sleep apnea/narcolepsy also if this is primary polycythemia might need to see hematology and might benefit from bone marrow biopsy. Also this is polycythemia secondary to obstructive sleep apnea.the possibility of patient having nonsustained A. fib can be very high with shattering thrombosis can explain the syncopal episode as an episode of TIA. 5 prostate cancer: Has been treated with Dr. Huynh and see him on regular basis. 6 anxiety attacks and depression has been on Celexa and alprazolam. 7 neuropathy: Patient remain on gabapentin 300 mg daily at bedtime. 8 hyperlipidemia: Was on simvastatin before. 9 previous history of RI will repeat another echocardiogram this admission. 10 severe BPH: Patient has been using tamsulosin lately. No further syncope patient is doing well since his angioplasty and stent placement along with the loop recorder monitor. Patient and asking about physical therapy and rehab recommended to do cardiac rehab after seen cardiology as an outpatient and do simple stress test as a next step. No driving in the next few weeks for up to 6 months unless diagnosis of his syncope is complete. [place] patient is very stable to be discharged home today. Patient Condition at Discharge: Serious Plan - Discharge Summary Discharge Rx Participant: Yes New Discharge Prescriptions: New Aspirin 81 mg PO DAILY chew Atorvastatin [Lipitor] 80 mg PO HS #90 tab Nitroglycerin Sl Tabs [Nitrostat] 0.4 mg SUBLINGUAL Q5M PRN #25 tab PRN Reason: Chest Pain Clopidogrel [Plavix] 75 mg PO DAILY #90 tab Acetaminophen Tab [Tylenol] 650 mg PO Q6HR PRN tab PRN Reason: Mild Pain Or Fever > 100.5 Continue Citalopram Hydrobromide [CeleXA] 20 mg PO HS Gabapentin [Neurontin] 300 mg PO HS Melatonin 10 mg PO HS ALPRAZolam [Xanax] 1 mg PO HS Tamsulosin [Flomax] 0.8 mg PO HS Pirfenidone [Esbriet] 801 mg PO AC-TID C,E,Zinc,Copper 11/Ozuad7j/Lut [Ocuvite Adult 50 Plus Softgel] 1 cap PO HS Triamcinolone 0.1% Cream [Kenalog 0.1% Cream] 1 applicatio TOPICAL BID PRN PRN Reason: FACE/GROIN/ARMPITS Discharge Medication List Citalopram Hydrobromide [CeleXA] 20 mg PO HS 11/07/17 [History] ALPRAZolam [Xanax] 1 mg PO HS 08/12/19 [History] C,E,Zinc,Copper 11/Mzijo1e/Lut [Ocuvite Adult 50 Plus Softgel] 1 cap PO HS 08/12/19 [History] Gabapentin [Neurontin] 300 mg PO HS 08/12/19 [History] Melatonin 10 mg PO HS 08/12/19 [History] Pirfenidone [Esbriet] 801 mg PO AC-TID 08/12/19 [History] Tamsulosin [Flomax] 0.8 mg PO HS 08/12/19 [History] Triamcinolone 0.1% Cream [Kenalog 0.1% Cream] 1 applicatio TOPICAL BID PRN 08/12/19 [History] Acetaminophen Tab [Tylenol] 650 mg PO Q6HR PRN tab 08/14/19 [Rx] Aspirin 81 mg PO DAILY chew 08/14/19 [Rx] Atorvastatin [Lipitor] 80 mg PO HS #90 tab 08/14/19 [Rx] Clopidogrel [Plavix] 75 mg PO DAILY #90 tab 08/14/19 [Rx] Nitroglycerin Sl Tabs [Nitrostat] 0.4 mg SUBLINGUAL Q5M PRN #25 tab 08/14/19 [Rx] Follow up Appointment(s)/Referral(s): Chaka Sanderson MD [STAFF PHYSICIAN] - 1 Week (august 26 at 10:15 am) Job Quintero MD [STAFF PHYSICIAN] - 1 Week (Follow-up next week Saturday as previously scheduled with Dr. Quintero/Marichuy Ortiz/Karen Weaver) Real Loving DO [Primary Care Provider] - 1-2 days Discharge Disposition: HOME SELF-CARE
[2019-08-14] MEDS ORDERED: ATORVASTATIN 80 MG TAB PO SCH (21:00)
== END 2019-08-14 16:02 | disposition home or self-care (01) | DRG 247 ==
LOC: EC 14:50 → 3SCARD 16:36
PROVIDERS: ADMIT Internal Medicine Geriatric Medicine; ATTEND Internal Medicine Geriatric Medicine
PROC: 027034Z Dilation of Coronary Artery, One Artery with Drug-eluting Intraluminal Device, Percutaneous Approach (ICD-10-PCS; principal; 2019-08-13 11:30)
PROC: 4A023N7 Measurement of Cardiac Sampling and Pressure, Left Heart, Percutaneous Approach (ICD-10-PCS; 2019-08-13 11:30)
PROC: B2111ZZ Fluoroscopy of Multiple Coronary Arteries using Low Osmolar Contrast (ICD-10-PCS; 2019-08-13 11:30)
PROC: 4A033BC Measurement of Arterial Pressure, Coronary, Percutaneous Approach (ICD-10-PCS; 2019-08-13 11:30)
DX: I21.4 Non-ST elevation (NSTEMI) myocardial infarction (principal); J96.11 Chronic respiratory failure with hypoxia; J98.11 Atelectasis; D75.1 Secondary polycythemia; G62.9 Polyneuropathy, unspecified; G93.89 Other specified disorders of brain; J84.112 Idiopathic pulmonary fibrosis; I44.7 Left bundle-branch block, unspecified; G47.419 Narcolepsy without cataplexy; E78.5 Hyperlipidemia, unspecified; F32.9 Major depressive disorder, single episode, unspecified; F41.1 Generalized anxiety disorder; G47.33 Obstructive sleep apnea (adult) (pediatric); H81.10 Benign paroxysmal vertigo, unspecified ear; I10 Essential (primary) hypertension; I25.10 Atherosclerotic heart disease of native coronary artery without angina pectoris; I25.2 Old myocardial infarction; N40.0 Benign prostatic hyperplasia without lower urinary tract symptoms; S00.81XA Abrasion of other part of head, initial encounter; E78.00 Pure hypercholesterolemia, unspecified; Z79.82 Long term (current) use of aspirin; Z79.899 Other long term (current) drug therapy; Z79.52 Long term (current) use of systemic steroids; Z88.8 Allergy status to other drugs, medicaments and biological substances; Z99.81 Dependence on supplemental oxygen; Z95.5 Presence of coronary angioplasty implant and graft; Z87.891 Personal history of nicotine dependence; Z85.46 Personal history of malignant neoplasm of prostate; Z98.42 Cataract extraction status, left eye; Z98.41 Cataract extraction status, right eye; Z96.1 Presence of intraocular lens; Z90.49 Acquired absence of other specified parts of digestive tract; Z80.3 Family history of malignant neoplasm of breast; Z80.7 Family history of other malignant neoplasms of lymphoid, hematopoietic and related tissues; Z82.49 Family history of ischemic heart disease and other diseases of the circulatory system; W19.XXXA Unspecified fall, initial encounter
CPT/HCPCS: 33285; 36415; 36556; 36600; 70450; 71045; 71046; 80048; 80053; 80061; 81001; 81003; 82565; 82803; 82805; 83036; 83735; 83880; 84100; 84484; 85025; 85347; 85610; 85730; 87070; 87205; 93005; 93306; 93308; 93458; 93571; 93572; 93970; 94002; 94003; 94640; 95816; 96361; 96365; 96375; 96376; 99285; 99291; C1874

== ENCOUNTER 2019-08-14 21:42 | Inpatient (IN) | payer MEDICARE, OTHER ==
[2019-08-14] MEDS ORDERED: NOREPINEPHRINE 32 MG in SODIUM CHLORIDE 0.9% 218 ML IV ONE ×2 (21:46→23:35)
--- NOTE | 2019-08-14 21:55 | XR ---
EXAMINATION TYPE: XR chest 1V DATE OF EXAM: 08/14/2019 COMPARISON: 08/12/2019 HISTORY: Short of breath TECHNIQUE: Single frontal view of the chest is obtained. FINDINGS: There is diffuse pulmonary edema. Heart is enlarged. Exam is limited by the backboard. End otracheal tube is less than 1 cm from the fox. There are chest leads. IMPRESSION: Pulmonary edema significantly increased compared to last exam. Endotracheal tube is low and should BE pulled back 3 cm.
[2019-08-14] MEDS ORDERED: SODIUM CHLORIDE 0.9% 1,000 ML IV STA (21:57)
[2019-08-14 22:02] LABS: Glucose,Whole Blood 303 mg/dL (75-99)
--- NOTE | 2019-08-14 22:06 | ED ---
CPR HPI - General Chief Complaint: Cardiac Arrest/CPR Stated Complaint: Cardiac arrest Source: EMS, RN notes reviewed, old records reviewed Mode of arrival: EMS Limitations: no limitations - History of Present Illness Initial Comments: This is a 74-year-old male brought in the ER for evaluation, patient elicited for chest pain as a cardiac arrest. Patient per EMS was PDA, per family patient no complaints all-day history of recent stent placement yesterday and discharged yesterday. Patient with bowel movement and was found to be decreased responsiveness anemic scapular patient was responsive did talk and then at that point was loss of pulse patient was intubated and brought here for evaluation. Patient was protocol provided in route MD Complaint: found unresponsive, stopped breathing, collapsed during rest (bowel movement) -: minute(s) Place: home Bystander CPR Performed: Yes AED Applied by Bystander/Infant Childcare Provider: Yes Shock Advised: No Initial Findings in the Field: unresponsive, no pulse, PEA ROSC in the Field: No Associated Injuries: No Associated Symptoms: other (no cpmlaints today) Treatments Prior to Arrival: intubation, epinephrine mgs # - Related Data Home Medications Medication Instructions Recorded Confirmed Citalopram Hydrobromide [CeleXA] 20 mg PO HS 11/07/17 08/13/19 ALPRAZolam [Xanax] 1 mg PO HS 08/12/19 08/12/19 C,E,Zinc,Copper 11/Jievi9x/Lut 1 cap PO HS 08/12/19 08/12/19 [Ocuvite Adult 50 Plus Softgel] Gabapentin [Neurontin] 300 mg PO HS 08/12/19 08/12/19 Melatonin 10 mg PO HS 08/12/19 08/12/19 Pirfenidone [Esbriet] 801 mg PO AC-TID 08/12/19 08/12/19 Tamsulosin [Flomax] 0.8 mg PO HS 08/12/19 08/12/19 Triamcinolone 0.1% Cream [Kenalog 1 applicatio TOPICAL BID PRN 08/12/19 08/12/19 0.1% Cream] Previous Rx's Medication Instructions Recorded Acetaminophen Tab [Tylenol] 650 mg PO Q6HR PRN tab 08/14/19 Aspirin 81 mg PO DAILY chew 08/14/19 Atorvastatin [Lipitor] 80 mg PO HS #90 tab 08/14/19 Clopidogrel [Plavix] 75 mg PO DAILY #90 tab 08/14/19 Nitroglycerin Sl Tabs [Nitrostat] 0.4 mg SUBLINGUAL Q5M PRN #25 tab 08/14/19 Allergies Allergy/AdvReac Type Severity Reaction Status Date / Time metoprolol [From Lopressor] AdvReac Nausea & Verified 08/12/19 16:55 Vomiting Review of Systems ROS Statement: Those systems with pertinent positive or pertinent negative responses have been documented in the HPI. ROS Other: All systems not noted in ROS Statement are negative. Past Medical History Past Medical History: Cancer, Hyperlipidemia, Myocardial Infarction (MT), Prostate Disorder Additional Past Medical History / Comment(s): prostate cancer, sees DR Huynh currently, pulmonary fibrosis Last Myocardial Infarction Date:: 1989 History of Any Multi-Drug Resistant Organisms: None Reported Past Surgical History: Appendectomy Additional Past Surgical History / Comment(s): colonoscopy with Dr. Downs, right eye retna, bilateral cataract Past Anesthesia/Blood Transfusion Reactions: No Reported Reaction Past Psychological History: No Psychological Hx Reported, Depression Smoking Status: Former smoker - Past Family History Father Family Medical History: Cancer Additional Family Medical History / Comment(s): Father at age 65 from lymphoma. Mother Additional Family Medical History / Comment(s): Mother at age 85 with history of coronary artery disease. Patient has one sister who has had breast cancer. Patient has 1 son and 1 daughter with no major medical problems. General Exam Limitations: no limitations, altered mental status, physical limitation General appearance: obtunded, in distress, other (cyanotic face) Head exam: Present: atraumatic, normocephalic, normal inspection Eye exam: Present: normal appearance. Absent: scleral icterus, conjunctival injection, periorbital swelling ENT exam: Present: normal exam, mucous membranes moist Neck exam: Present: normal inspection. Absent: tenderness, meningismus, lymphadenopathy Respiratory exam: Present: normal lung sounds bilaterally. Absent: respiratory distress, wheezes, rales, rhonchi, stridor Cardiovascular Exam: Present: tachycardia, normal heart sounds, other (PEA). Absent: systolic murmur, diastolic murmur, rubs, gallop, clicks GI/Abdominal exam: Present: soft, normal bowel sounds. Absent: distended, tenderness, guarding, rebound, rigid Extremities exam: Present: normal inspection, full ROM, normal capillary refill. Absent: tenderness, pedal edema, joint swelling, calf tenderness Back exam: Present: normal inspection Skin exam: Present: warm, intact, cyanosis, diaphoretic, mottled. Absent: rash Course Vital Signs 08/14/19 08/14/19 08/14/19 21:43 21:48 22:00 Pulse Rate 116 H 130 H 113 H Respiratory 14 14 14 Rate Blood Pressure 83/60 103/62 120/78 O2 Sat by Pulse 97 96 Oximetry - Reevaluation(s) Reevaluation #1: 08/14/19 22:04 Record review and history obtained from EMS 08/14/19 22:05 Patient's cardiology cath report from prior ER visit and discharged yesterday are reviewed Reevaluation #2: 08/14/19 22:05 Patient return spontaneous circulation, central line placed, EKG obtained and patient cardiology is informed Reevaluation #3: 08/14/19 22:[address] Baer in both Dr. Abel, hospital laboratory technician was paged Reevaluation #4: 08/14/19 22:30 I did speak with with family regarding patient's grave prognosis, they understand questions are answered - Consultations Consultation #1: Spoke with Dr. Smith will be admittesd to the hospital laboratory technician Procedures - Central Line Placement Right IJ Consent Obtained: verbal consent Patient Placed on Monitor/Pulse Ox: Yes Prep: mask, gown, gloves Central Line Prep: Povidone-Iodine 1% Local Anesthesia Used: Lidocaine 1% Ultrasound Used for Placement: Yes Central Line Lumen Inserted: triple Bloods Obtained for Lab: Yes Central Line Position: good blood return, all ports aspirated, flushed, capped, sutured in place with 3-0 nylon Dressing Applied: Tegaderm Post Procedure X-Ray: tip of catheter in good position Patient Tolerated Procedure: well Complications: none Medical Decision Making - Medical Decision Making 74 female here for evaluation cardiac arrest STEMI changes on EKG, patient be taken to the hospital laboratory technician for catheterization - Lab Data Result diagrams: 08/14/19 21:54 08/14/19 21:54 Lab Results 08/14/19 08/14/19 08/14/19 Range/Units 21:54 21:54 21:54 WBC 13.0 H (3.8-10.6) k/uL RBC 5.38 (4.30-5.90) m/uL Hgb 15.6 (13.0-17.5) gm/dL Hct 51.6 (39.0-53.0) % MCV 95.9 D (80.0-100.0) fL MCH 28.9 (25.0-35.0) pg MCHC 30.2 L (31.0-37.0) g/dL RDW 13.8 (11.5-15.5) % Plt Count 225 (150-450) k/uL Hypochromasia Moderate PT (9.0-12.0) sec INR (<1.2) APTT (22.0-30.0) sec Sample Site ABG pH (7.35-7.45) ABG pCO2 (35-45) mmHg ABG pO2 (83-108) mmHg ABG HCO3 (21-25) mmol/L ABG Total CO2 (19-24) mmol/L ABG O2 Saturation (94-97) % ABG Base Excess mmol/L Domingo Test VBG pH 6.91 L* (7.31-7.41) VBG pCO2 50 (37-51) mmHg VBG HCO3 10 L (24-28) mmol/L FiO2 % Sodium 140 (137-145) mmol/L Potassium 4.2 (3.5-5.1) mmol/L Chloride 106 (98-107) mmol/L Carbon Dioxide 12 L (22-30) mmol/L Anion Gap 22 mmol/L BUN 14 (9-20) mg/dL Creatinine 1.56 H (0.66-1.25) mg/dL Est GFR (CKD-EPI)AfAm 50 (>60 ml/min/1.73 sqM) Est GFR (CKD-EPI)NonAf 44 (>60 ml/min/1.73 sqM) Glucose 342 H (74-99) mg/dL POC Glucose (mg/dL) (75-99) mg/dL POC Glu Devulcanizer Charger ID Calcium 8.3 L (8.4-10.2) mg/dL Total Bilirubin 0.7 (0.2-1.3) mg/dL AST 178 H (17-59) U/L ALT 145 H (21-72) U/L Alkaline Phosphatase 75 (38-126) U/L Total Protein 6.0 L (6.3-8.2) g/dL Albumin 3.4 L (3.5-5.0) g/dL 08/14/19 08/14/19 08/14/19 Range/Units 21:54 22:00 22:15 WBC (3.8-10.6) k/uL RBC (4.30-5.90) m/uL Hgb (13.0-17.5) gm/dL Hct (39.0-53.0) % MCV (80.0-100.0) fL MCH (25.0-35.0) pg MCHC (31.0-37.0) g/dL RDW (11.5-15.5) % Plt Count (150-450) k/uL Hypochromasia PT 12.6 H (9.0-12.0) sec INR 1.2 H (<1.2) APTT 35.7 H (22.0-30.0) sec Sample Site Right Radial ABG pH 6.95 L* (7.35-7.45) ABG pCO2 51 H (35-45) mmHg ABG pO2 123 H (83-108) mmHg ABG HCO3 11 L (21-25) mmol/L ABG Total CO2 13 L (19-24) mmol/L ABG O2 Saturation 95.0 (94-97) % ABG Base Excess -20.9 mmol/L Domingo Test Yes VBG pH (7.31-7.41) VBG pCO2 (37-51) mmHg VBG HCO3 (24-28) mmol/L FiO2 100 % Sodium (137-145) mmol/L Potassium (3.5-5.1) mmol/L Chloride (98-107) mmol/L Carbon Dioxide (22-30) mmol/L Anion Gap mmol/L BUN (9-20) mg/dL Creatinine (0.66-1.25) mg/dL Est GFR (CKD-EPI)AfAm (>60 ml/min/1.73 sqM) Est GFR (CKD-EPI)NonAf (>60 ml/min/1.73 sqM) Glucose (74-99) mg/dL POC Glucose (mg/dL) 303 H (75-99) mg/dL POC Glu Devulcanizer Charger ID Jarvis Worley Calcium (8.4-10.2) mg/dL Total Bilirubin (0.2-1.3) mg/dL AST (17-59) U/L ALT (21-72) U/L Alkaline Phosphatase (38-126) U/L Total Protein (6.3-8.2) g/dL Albumin (3.5-5.0) g/dL - Radiology Data Radiology results: report reviewed (Chest x-ray shows good ET tube placement, will be pulled back, central line placement as well, increased pulmonary edema from prior exam), image reviewed Critical Care Time Critical Care Time: Yes Total Critical Care Time: 65 Disposition Clinical Impression: STEMI (ST elevation myocardial infarction), Cardiac arrest Disposition: ADMITTED IP TO THIS HOSP Condition: Critical Is patient prescribed a controlled substance at d/c from ED?: No Referrals: Real Loving DO [Primary Care Provider] - 1-2 days
[2019-08-14 22:07] LABS: Basophils # (A) 0.1 k/uL (0-0.2); Basophils % (A) 1 %; Eosinophils # (A) 0.2 k/uL (0-0.7); Eosinophils % (A) 2 %; HCT 51.6 % (39.0-53.0); HGB 15.6 gm/dL (13.0-17.5); Hypochromasia Moderate; Lymphocytes # (A) 3.5 k/uL (1.0-4.8); Lymphocytes % (A) 27 %; MCH 28.9 pg (25.0-35.0); MCHC 30.2 g/dL (31.0-37.0); Mean Platelet Volume 6.6; Monocytes # (A) 0.7 k/uL (0-1.0); Monocytes % (A) 5 %; Neutrophils # (A) 8.1 k/uL (1.3-7.7); Neutrophils % (A) 62 %; Platelet Count 225 k/uL (150-450); RBC 5.38 m/uL (4.30-5.90); RDW 13.8 % (11.5-15.5)
[2019-08-14 22:14] LABS: VBG PH 6.91 (7.31-7.41)
[2019-08-14] MEDS ORDERED: SODIUM BICARB 8.4% 50 ML SYR (1 MEQ/ML) IV STA (22:14)
[2019-08-14 22:18] LABS: INR 1.2 (<1.2); Partial Thromboplastin Time 35.7 sec (22.0-30.0); Prothrombin Time 12.6 sec (9.0-12.0)
[2019-08-14 22:19] LABS: ABG Base Excess -20.9 mmol/L; ABG HCO3 11 mmol/L (21-25); ABG PCO2 51 mmHg (35-45); ABG PO2 123 mmHg (83-108); ABG TCO2 13 mmol/L (19-24); Allen Test Performed? Yes
[2019-08-14 22:20] LABS: Albumin 3.4 g/dL (3.5-5.0); Calcium 8.3 mg/dL (8.4-10.2); Potassium 4.2 mmol/L (3.5-5.1); Total Bilirubin 0.7 mg/dL (0.2-1.3)
--- NOTE | 2019-08-14 22:20 | XR ---
EXAMINATION TYPE: XR chest 1V portable DATE OF EXAM: 08/14/2019 COMPARISON: Today HISTORY: Check line placement TECHNIQUE: Single frontal view of the chest is obtained. FINDINGS: There appears to be a right jugular catheter with the tip in the superior vena cava. There is moderate pulmonary edema. Endotracheal tube is less than 1 cm from the fox. There is no pneumo thorax. Costophrenic angles are clear. IMPRESSION: Moderate pulmonary edema unchanged. Endotracheal tube is low and should BE pulled back 3 cm.
[2019-08-14 22:24] LABS: MCV 95.9 fL (80.0-100.0)
[2019-08-14 22:28] LABS: ABG PH 6.95 (7.35-7.45)
[2019-08-14] MEDS ORDERED: MIDAZOLAM 1 MG/ML 5 ML VIAL IV STA (22:38)
[2019-08-14] MEDS ORDERED: MIDAZOLAM HCL 50 MG in SODIUM CHLORIDE 0.9% 40 ML IV SCH (22:45)
[2019-08-14] MEDS ORDERED: ASPIRIN 81 MG PO STA (23:02)
[2019-08-14] MEDS ORDERED: NITROGLYCERIN SL TABS 0.4 MG TAB SUBLINGUAL PRN (23:02)
[2019-08-14] MEDS ORDERED: NALOXONE 0.4 MG/ML 1 ML VIAL IV PRN (23:02)
[2019-08-14] MEDS ORDERED: DEXTROSE 5%-0.45% NACL 1,000 ML IV SCH (23:15)
[2019-08-14] MEDS ORDERED: ASPIRIN 325 MG TAB OG-TUBE ONE (23:30)
[2019-08-14] MEDS ORDERED: LIDOCAINE 1% INJ 10MG/ML (20 ML MDV) SQ ONE (23:30)
[2019-08-14] MEDS ORDERED: IV FLUID CONTINUATION 1,000 ML IV ONE (23:35)
[2019-08-14] MEDS ORDERED: MIDAZOLAM 2 MG/2 ML VIAL IVP ONE (23:51)
[2019-08-15] MEDS ORDERED: RX INFO: IV CONTRAST WAS GIVEN 1 EACH MISC MISCELLANE PRN ×2 (00:03→13:22)
[2019-08-15] MEDS ORDERED: IOPAMIDOL-370 125ML BTL INJ ONE ×2 (00:04→13:23)
[2019-08-15] MEDS ORDERED: SODIUM CHLORIDE 0.9% 1,000 ML IV SCH ×2 (00:15→13:30)
--- NOTE | 2019-08-15 00:21 | P.CRDCN ---
History of Present Illness Consult date: 08/15/19 Chief complaint: Loss of consciousness History of present illness: This is a 74-year-old gentleman who was brought to the emergency room after he was found unresponsive by his family at home. The patient was discharged from the hospital yesterday after he was admitted with syncope. At that point he was ruled in for acute coronary syndrome and underwent catheterization and stenting of the left anterior descending artery. Also the patient underwent at the same admission, an echocardiogram which revealed normal LV function with mild aortic stenosis. He underwent also a loop recorder before he was discharged home. This time, the patient was found unresponsive by his family at home. The family did CPR on the patient and called ambulance. The time the ambulance arrived, the patient was found to be in PEA. He was brought back into atrial fibrillation with RVR and normal blood pressure when the ambulance arrived to the emergency room. The hold down time at home and on the way to the hospital was more than 30 minutes. Currently the patient does have dilated pupil. No indication of the patient was experiencing any symptoms of chest pain or chest discomfort. At the same time the information about the symptoms around the [facility] are very little. Currently the patient is hemodynamically stable. He is in normal sinus rhythm. I did perform an emergent heart catheterization and that revealed chronic total occlusion of the RCA which fills by collateral from the left coronary system, severe disease involving the ostial left main coronary artery, intermediate to severe disease involving the left circumflex, and patent stents in the proximal left anterior descending artery. Please note that the patient GFR was at 45. His blood gases revealed severe acidosis. He was given bicarb earlier today. The chest x-ray showed findings consistent was congestive heart failure. The patient is going to be admitted to the intensive care unit at this point. Past Medical History Past Medical History: Cancer, Hyperlipidemia, Myocardial Infarction ([place]), Prostate Disorder Additional Past Medical History / Comment(s): prostate cancer, sees DR Huynh currently, pulmonary fibrosis Last Myocardial Infarction Date:: 1989 History of Any Multi-Drug Resistant Organisms: None Reported Past Surgical History: Appendectomy Additional Past Surgical History / Comment(s): colonoscopy with Dr. Downs, right eye retna, bilateral cataract Past Anesthesia/Blood Transfusion Reactions: No Reported Reaction Past Psychological History: No Psychological Hx Reported, Depression Smoking Status: Former smoker - Past Family History Father Family Medical History: Cancer Additional Family Medical History / Comment(s): Father at age 65 from lymphoma. Mother Additional Family Medical History / Comment(s): Mother at age 85 with history of coronary artery disease. Patient has one sister who has had breast cancer. Patient has 1 son and 1 daughter with no major medical problems. Medications and Allergies Home Medications Medication Instructions Recorded Confirmed Type Citalopram Hydrobromide [CeleXA] 20 mg PO HS 11/07/17 08/14/19 History ALPRAZolam [Xanax] 1 mg PO HS 08/12/19 08/14/19 History C,E,Zinc,Copper 11/Sosqh1a/Lut 1 cap PO HS 08/12/19 08/14/19 History [Ocuvite Adult 50 Plus Softgel] Gabapentin [Neurontin] 300 mg PO HS 08/12/19 08/14/19 History Melatonin 10 mg PO HS 08/12/19 08/14/19 History Pirfenidone [Esbriet] 801 mg PO AC-TID 08/12/19 08/14/19 History Tamsulosin [Flomax] 0.8 mg PO HS 08/12/19 08/14/19 History Triamcinolone 0.1% Cream [Kenalog 1 applicatio TOPICAL BID PRN 08/12/19 08/14/19 History 0.1% Cream] Acetaminophen Tab [Tylenol] 650 mg PO Q6HR PRN tab 08/14/19 08/14/19 Rx Aspirin 81 mg PO DAILY chew 08/14/19 08/14/19 Rx Atorvastatin [Lipitor] 80 mg PO HS #90 tab 08/14/19 08/14/19 Rx Clopidogrel [Plavix] 75 mg PO DAILY #90 tab 08/14/19 08/14/19 Rx Nitroglycerin Sl Tabs [Nitrostat] 0.4 mg SUBLINGUAL Q5M PRN #25 tab 08/14/19 08/14/19 Rx Allergies Allergy/AdvReac Type Severity Reaction Status Date / Time metoprolol [From Lopressor] AdvReac Nausea & Verified 08/14/19 22:34 Vomiting Physical Exam Vitals: Vital Signs Pulse Resp BP Pulse Ox 08/14/19 22:40 101 H 110/65 99 08/14/19 22:35 105 H 130/75 96 08/14/19 22:00 113 H 14 120/78 96 08/14/19 21:48 130 H 14 103/62 97 08/14/19 21:43 116 H 14 83/60 Intake and Output 08/14/19 08/14/19 08/15/19 14:59 22:59 06:59 Other: Weight 90.718 kg - Constitutional General appearance: mild distress - Respiratory Respiratory: bilateral: rhonchi, wheezing - Cardiovascular Rhythm: regular Heart sounds: normal: S1, S2 Abnormal Heart Sounds: systolic murmur Results 08/14/19 21:54 08/14/19 21:54 Cardiac Enzymes 08/14/19 08/14/19 Range/Units 21:54 21:54 AST 178 H (17-59) U/L Troponin I 0.110 H* (0.000-0.034) ng/mL Coagulation 08/14/19 Range/Units 21:54 PT 12.6 H (9.0-12.0) sec APTT 35.7 H (22.0-30.0) sec CBC 08/14/19 Range/Units 21:54 WBC 13.0 H (3.8-10.6) k/uL RBC 5.38 (4.30-5.90) m/uL Hgb 15.6 (13.0-17.5) gm/dL Hct 51.6 (39.0-53.0) % Plt Count 225 (150-450) k/uL Comprehensive Metabolic Panel 08/14/19 Range/Units 21:54 Sodium 140 (137-145) mmol/L Potassium 4.2 (3.5-5.1) mmol/L Chloride 106 (98-107) mmol/L Carbon Dioxide 12 L (22-30) mmol/L BUN 14 (9-20) mg/dL Creatinine 1.56 H (0.66-1.25) mg/dL Glucose 342 H (74-99) mg/dL Calcium 8.3 L (8.4-10.2) mg/dL AST 178 H (17-59) U/L ALT 145 H (21-72) U/L Alkaline Phosphatase 75 (38-126) U/L Total Protein 6.0 L (6.3-8.2) g/dL Albumin 3.4 L (3.5-5.0) g/dL Current Medications Generic Name Dose Route Start Last Admin Trade Name Freq PRN Reason Stop Dose Admin Albuterol/Ipratropium 3 ml 08/15/19 08:00 Duoneb 0.5 Mg-3 Mg/3 Ml Soln INHALATION RT-QID [facility] Aspirin 325 mg 08/15/19 09:00 Aspirin PO DAILY [facility] Norepinephrine Bitartrate 32 250 mls @ 2.126 mls/hr 08/14/19 21:46 08/14/19 23:08 mg/ Sodium Chloride IV 08/15/19 21:45 0.05 mcg/kg/min .Q24H ONE 2.126 mls/hr Administration Protocol 0.05 MCG/KG/MIN Midazolam HCl 50 mg/ Sodium 50 mls @ 1 mls/hr 08/14/19 22:45 08/14/19 23:09 Chloride IV Not Given .Q24H [facility] Protocol 1 MG/HR Dextrose/Sodium Chloride 1,000 mls @ 80 mls/hr 08/14/19 23:15 Dextrose 5%-1/2ns Iv Soln IV .[id number] [facility] Sodium Chloride 1,000 mls @ 75 mls/hr 08/15/19 00:15 Saline 0.9% IV 08/15/19 05:16 .[id number] [facility] Miscellaneous Information 1 each 08/15/19 00:03 Rx Info: Iv Contrast Was Given MISCELLANE 08/17/19 00:03 DAILY PRN Per Protocol Naloxone HCl 0.2 mg 08/14/19 23:02 Narcan IV Q2M PRN Opioid Reversal Nitroglycerin 0.4 mg 08/14/19 23:02 Nitrostat SUBLINGUAL Q5M PRN Chest Pain Intake and Output 08/14/19 08/14/19 08/15/19 14:59 22:59 06:59 Other: Weight 90.718 kg Patient Weight 08/15/19 06:59 Weight 90.718 kg 08/14/19 21:54 08/14/19 21:54 Assessment and Plan Assessment: Assessment #1 cardiopulmonary arrest, etiology at known, could be related to coronary event #2 status post stenting of the left anterior descending artery #3 acute hypoxic respiratory failure #4 angiographic pulmonary fibrosis #5 mild aortic stenosis #6 multiple comorbid conditions Plan #1 continue the current medical regimen including dual antiplatelet therapy #2 the patient was weaned from the vasopressors, norepinephrine, early or #3 continue ventilator support and intensive care consult #4 the patient will probably benefit from stenting of the left main #5 rule out other etiology like pulmonary embolism and intracranial bleeding #6 repeat the echocardiogram #7 monitor the kidney function and electrolytes as well as hemoglobin #8 follow-up with the patient Thank you for allowing us participate in his care
[2019-08-15 00:35] LABS: Glucose,Whole Blood 230 mg/dL (75-99)
--- NOTE | 2019-08-15 01:09 | XR ---
EXAMINATION TYPE: XR chest 1V portable DATE OF EXAM: 08/15/2019 COMPARISON: Yesterday HISTORY: Check tube placement TECHNIQUE: Single frontal view of the chest is obtained. FINDINGS: Heart is enlarged. There is coarse pulmonary interstitial infiltrate throughout the lungs. There is right jugular catheter with tip in the superior vena cava. No pneumothorax. Nasogastric tub e is present. Endotracheal tube is 4 cm from the fox. IMPRESSION: Advanced pulmonary fibrosis. Endotracheal tube in fairly good position. Heart and lungs unchanged.
[2019-08-15] MEDS: PROPOFOL 1,000 MG in EMPTY BAG 1 BAG IV SCH ×9 (01:13→23:30)
[2019-08-15 01:32] LABS: ABG Base Excess -2.5 mmol/L; ABG HCO3 24 mmol/L (21-25); ABG Oxygen Saturation 92.3 % (94-97); ABG PCO2 49 mmHg (35-45); ABG PO2 70 mmHg (83-108); ABG TCO2 25 mmol/L (19-24); Allen Test Performed? Yes
[2019-08-15 02:07] LABS: Amorphous Sediment,Urine Rare /hpf; Appearance,Urine Cloudy (Clear); Bilirubin,Urine Negative (Negative); Blood,Urine Moderate (Negative); Color,Urine Yellow; Glucose,Urine (UA) 3+ (Negative); Granular Casts,Urine 7 /lpf (0); Hyaline Casts,Urine 100 /lpf (0-2); Ketones,Urine Trace (Negative); Leukocyte Esterase,Urine Negative (Negative); Mucus,Urine Rare /hpf; Nitrite,Urine Negative (Negative); PH, Urine 5.5 (5.0-8.0); Protein,Urine 1+ (Negative); RBC,Urine 9 /hpf (0-5); Specific Gravity,Urine 1.037 (1.001-1.035); Squamous Epithelial Cell,Urine <1 /hpf (0-4); Urobilinogen,Urine <2.0 mg/dL (<2.0); WBC,Urine 3 /hpf (0-5)
[2019-08-15] MEDS ORDERED: FUROSEMIDE 10 MG/ML 4 ML VIAL IV STA (05:11)
[2019-08-15 05:23] LABS: Basophils % (A) 0 %; Eosinophils % (A) 0 %; HCT 47.8 % (39.0-53.0); HGB 15.9 gm/dL (13.0-17.5); Lymphocytes # (A) 0.9 k/uL (1.0-4.8); Lymphocytes % (A) 5 %; MCH 29.2 pg (25.0-35.0); MCHC 33.2 g/dL (31.0-37.0); Mean Platelet Volume 6.6; Monocytes # (A) 0.9 k/uL (0-1.0); Monocytes % (A) 5 %; Neutrophils % (A) 89 %; Platelet Count 309 k/uL (150-450); RBC 5.45 m/uL (4.30-5.90)
[2019-08-15 05:30] LABS: MCV 87.8 fL (80.0-100.0)
[2019-08-15 05:34] LABS: Calcium 8.5 mg/dL (8.4-10.2); Phosphorus 3.6 mg/dL (2.5-4.5)
[2019-08-15 06:10] LABS: Glucose,Whole Blood 138 mg/dL (75-99)
--- NOTE | 2019-08-15 06:35 | XR ---
EXAMINATION TYPE: XR chest 1V portable DATE OF EXAM: 08/15/2019 HISTORY: Tube placement. REFERENCE: Previous study dated earlier today.. FINDINGS: The patient's ET tube and NG tube remain in place, unchanged in appearance. A right interna l jugular catheter is present. Its tip is within the right atrium. The heart is mildly enlarged. There are increased interstitial markings present bilaterally. These ar e chronic and likely represent fibrotic changes. There is mild blunting of both CP angles. I could no t exclude small, bilateral effusions. IMPRESSION: 1. CARDIOMEGALY. 2. EVIDENCE OF PULMONARY FIBROSIS. 3. I COULD NOT EXCLUDE SMALL, BILATERAL EFFUSIONS.
[2019-08-15 08:02] LABS: ABG Base Excess -0.9 mmol/L; ABG HCO3 24 mmol/L (21-25); ABG PCO2 36 mmHg (35-45); ABG PH 7.42 (7.35-7.45); ABG PO2 >400 mmHg (83-108); ABG TCO2 25 mmol/L (19-24); Allen Test Performed? Yes
[2019-08-15] MEDS: IPRATROPIUM-ALBUTEROL 3 ML NEB INHALATION SCH ×4 (08:12→20:29)
[2019-08-15] MEDS ORDERED: HEPARIN SODIUM,PORCINE 5,000 UNIT/ML 1 ML VIAL IV PRN (08:28)
[2019-08-15] MEDS ORDERED: HEPARIN SODIUM,PORCINE 5,000 UNIT/ML 1 ML VIAL IV ONE (08:28)
[2019-08-15] MEDS ORDERED: HEPARIN SOD,PORK IN 0.45% NACL 25,000 UNIT in 0.45% NACL 1 250ML.BAG IV SCH (08:30)
--- NOTE | 2019-08-15 09:02 | XR ---
EXAMINATION TYPE: XR chest 1V portable DATE OF EXAM: 08/15/2019 HISTORY: desaturation. REFERENCE: Previous study dated 08/15/2019. FINDINGS: The patient is ET tube, NG tube and right internal jugular catheter remain in place, unchan ged in appearance. The heart is mildly enlarged. There are chronic fibrotic changes throughout both lungs. There is blun ting of both CP angles. I could not exclude small effusions. IMPRESSION: NO SIGNIFICANT INTERVAL CHANGE IN THE APPEARANCE OF THE CHEST.
--- NOTE | 2019-08-15 09:36 | US ---
EXAMINATION TYPE: US venous doppler duplex LE BI DATE OF EXAM: 08/15/2019 9:04 AM COMPARISON: NONE CLINICAL HISTORY: dvt. Line in right groin. No swelling. No history of DVT. Patient on blood thinner since yesterday per family SIDE PERFORMED: Bilateral TECHNIQUE: The lower extremity deep venous system is examined utilizing real time linear array sonog eliseo with graded compression, doppler sonography and color-flow sonography. VESSELS IMAGED: External Iliac Vein (EIV) Common Femoral Vein Deep Femoral Vein Greater Saphenous Vein * Femoral Vein Popliteal Vein Small Saphenous Vein * Proximal Calf Veins (* superficial vessels) Right Leg: Negative for DVT as visualized. Unable to assess right EIV, CFV, GSV in groin due to line and bandages. Left Leg: Negative for DVT No popliteal fossa lesion is seen. IMPRESSION: THIS EXAMINATION IS NEGATIVE FOR DVT WITHIN BOTH LEGS.
--- NOTE | 2019-08-15 10:04 | CT ---
EXAMINATION TYPE: CT brain wo con DATE OF EXAM: 08/15/2019 COMPARISON: Previous study dated 08/12/2019. HISTORY: Anoxic brain injury CT DLP: 1142.2 mGycm Automated exposure control for dose reduction was used. FINDINGS: There are mild changes of sulcal prominence and ventriculomegaly, compatible with mild atrophy. There is mild, diffuse periventricular white matter lucency, compatible with chronic white matter ischemic change. There is evidence of a lacunar infarct in the basal ganglia on the left. There is no mass ef fect, midline shift or intracranial blood identified. Visualized portions of the paranasal sinuses and mastoids are clear. The bony calvarium is intact. IMPRESSION: 1. NO ACUTE INTRACRANIAL ABNORMALITY. 2. PREVIOUS LACUNAR INFARCT IN THE BASAL GANGLIA ON THE LEFT. 3. MILD DEGENERATIVE CHANGE.
--- NOTE | 2019-08-15 10:05 | CC ---
CARDIAC CATHETERIZATION REPORT DATE OF SERVICE: August 15, 2019 PERFORMING PHYSICIAN: Duran Abel MD. PROCEDURE PERFORMED: 1. Selective left and right coronary angiogram. 2. Left heart catheterization. INDICATION: This is a 74-year-old gentleman with history of coronary artery disease and known chronic total occlusion of the RCA who underwent yesterday stenting of the left anterior descending artery by Dr. Menjivar, was brought by ambulance to the emergency room after he had a cardiopulmonary arrest at home. Given the history of coronary stenting as well as the EKG when he presented to the hospital, which showed diffuse ST-segment depression, we decided to pursue with coronary angiogram. APPROACH: Right common femoral artery. COMPLICATION: None. LEVEL OF SEDATION: Moderate with sedation length of 28 minutes. PROCEDURE DESCRIPTION: Patient was brought emergently from the ER to the cardiac label tacker. The right common femoral artery was cannulated using micropuncture technique, the micropuncture wire passed easily. Then I placed a 6-[place] sheath in the right common femoral artery. I did perform selective left and right coronary angiogram using JL4 and JR4 catheters. Left heart catheterization was performed using 6-[place] pigtail catheter. The procedure was completed without any complication. SELECTIVE CORONARY ANGIOGRAM: 1. The left main appeared to have an ostial lesion seems to be in the range of 60-70 percent at least. Bifurcates into left circumflex and left anterior descending artery. 2. The left circumflex is a large caliber vessel and it is a codominant vessel. The proximal left circumflex appeared to have mild disease only. It gives rise into the first obtuse marginal branch which has a high takeoff and worked as ramus intermedius and seems to have an intermediate to severe lesion appeared to be in the range of 60%. The mid left circumflex is tortuous and has a plaque appeared to be in the range of 50%. This is by the takeoff of the second OM branch which has mild disease only. The circumflex distally appeared to be angiographically normal. It bifurcates into PDA and PLV branches. The PDA branch appeared to have mild disease only and the PLV branch appeared to have intermediate lesion only. 3. The left anterior descending coronary artery: The proximal LAD is stented and the stent is patent. The mid LAD appeared to have mild disease only. The LAD distally appeared to be angiographically normal. The LAD in the proximal portion gives rise into the first diagonal branch which has a sluggish flow. The second and third diagonal branches appeared to be angiographically normal. 4. The right coronary artery is a large caliber vessel it is a codominant vessel. The RCA is chronically occluded and fills by collateral from the left coronary system. HEMODYNAMICS: The LVEDP was 18-20 mmHg without significant gradient across aortic valve. CONCLUSION: 1. Chronic total occlusion of the RCA which fills by collaterals from the left coronary system. 2. Intermediate to severe disease involving the left circumflex coronary artery. 3. Patent stent in the proximal left anterior descending artery. 4. Severe disease involving the ostial left main coronary artery. POSTPROCEDURE MANAGEMENT: 1. Given the above anatomy, I did recommend continue the current medical regimen including dual anti-platelet therapy. 2. Rule out pulmonary embolism. 3. Rule out any anoxic encephalopathy. 4. Probably the patient will benefit from PCI of the LAD if other etiologies for the cardiac arrest were ruled out, as well as anoxic encephalopathy. MMODL / IJN: [id number] /
[2019-08-15] MEDS: ASPIRIN 325 MG TAB PO SCH (10:28)
[2019-08-15] MEDS: CHLORHEXIDINE GLUCONATE 15 ML CUP MUCOUS MEM SCH ×2 (10:28→22:31)
[2019-08-15] MEDS: methylPREDNISolone SOD SUCCI 40 MG/ML 1 ML VIAL IV SCH ×3 (10:28→17:40)
[2019-08-15] MEDS: PANTOPRAZOLE 40 MG/10 ML VIAL IV SCH (10:29)
--- NOTE | 2019-08-15 11:37 | P.HPIM ---
History of Present Illness H&P Date: 08/15/19 This is a 74-year-old male patient of Dr. Loving, Dr. Sanderson patient with past medical history of idiopathic pulmonary fibrosis, prostate cancer under the care of Dr. Huynh, hyperlipidemia, polycythemia, recurrent depression, remote history of tobacco use quit 2 years ago. Patient has had several episodes of syncope not well explained and underwent MRI of the brain and blood work and had a recent hospitalization discharged from the hospital yesterday after he was admitted with syncope. At that point he was ruled in for acute coronary syndrome and underwent catheterization and stenting of the left anterior descending artery. Also the patient underwent at the same admission, an echocardiogram which revealed normal LV function with mild aortic stenosis. He underwent also a loop recorder before he was discharged home. Patient was brought into the emergency center as he was found unresponsive by his family at home. Family did CPR and called for an ambulance. Patient was found to be in PEA and brought back into atrial fibrillation with RVR and normal blood pressure when the ambulance arrived to the emergency room. Down time was a total of 30 minutes. Patient underwent emergent heart catheterization with Dr. Abel that revealed chronic total occlusion of the RCA which fills by collateral from the left coronary system, severe disease involving the ostial left main coronary artery, intermediate to severe disease involving the left circumflex, and patent stents in the proximal left anterior descending artery. The chest x-ray showed findings consistent was congestive heart failure. Patient was admitted to the intensive care unit. On presentation, initial WBC count was 13 out of 18, pH 6.95, pCO2 51, pO2 123, bicarb 11, total CO2 13. Blood sugar 342. Troponins initially 0.110 and repeat 12.6. Triglycerides 239, cholesterol 170, LDL 88, HDL 34. Urinalysis cloudy, blood moderate. Patient was intubated and placed on mechanical ventilation with tidal volume 500, FiO2 70, PEEP. He also required norepinephrine for cardiogenic shock. CAT scan of the brain showed no acute findings. Ultrasound of bilateral lower extremities negative for DVT. Review of Systems ROS unobtainable: due to endotracheal tube Past Medical History Past Medical History: Cancer, Hyperlipidemia, Myocardial Infarction ([place]), Prostate Disorder Additional Past Medical History / Comment(s): prostate cancer, sees DR Huynh currently, pulmonary fibrosis Last Myocardial Infarction Date:: approx 1989 History of Any Multi-Drug Resistant Organisms: None Reported Past Surgical History: Appendectomy Additional Past Surgical History / Comment(s): colonoscopy with Dr. Downs, right eye retina, bilateral cataract Past Anesthesia/Blood Transfusion Reactions: No Reported Reaction Past Psychological History: No Psychological Hx Reported, Depression Smoking Status: Former smoker - Past Family History Father Family Medical History: Cancer Additional Family Medical History / Comment(s): Father at age 65 from lymp kit. Mother Additional Family Medical History / Comment(s): Mother at age 85 with history of coronary artery disease. Patient has one sister who has had breast cancer. Patient has 1 son and 1 daughter with no major medical problems. Medications and Allergies Home Medications Medication Instructions Recorded Confirmed Type Citalopram Hydrobromide [CeleXA] 20 mg PO HS 11/07/17 08/14/19 History ALPRAZolam [Xanax] 1 mg PO HS 08/12/19 08/14/19 History C,E,Zinc,Copper 11/Zrxck7w/Lut 1 cap PO HS 08/12/19 08/14/19 History [Ocuvite Adult 50 Plus Softgel] Gabapentin [Neurontin] 300 mg PO HS 08/12/19 08/14/19 History Melatonin 10 mg PO HS 08/12/19 08/14/19 History Pirfenidone [Esbriet] 801 mg PO AC-TID 08/12/19 08/14/19 History Tamsulosin [Flomax] 0.8 mg PO HS 08/12/19 08/14/19 History Triamcinolone 0.1% Cream [Kenalog 1 applicatio TOPICAL BID PRN 08/12/19 08/14/19 History 0.1% Cream] Acetaminophen Tab [Tylenol] 650 mg PO Q6HR PRN tab 08/14/19 08/14/19 Rx Aspirin 81 mg PO DAILY chew 08/14/19 08/14/19 Rx Atorvastatin [Lipitor] 80 mg PO HS #90 tab 08/14/19 08/14/19 Rx Clopidogrel [Plavix] 75 mg PO DAILY #90 tab 08/14/19 08/14/19 Rx Nitroglycerin Sl Tabs [Nitrostat] 0.4 mg SUBLINGUAL Q5M PRN #25 tab 08/14/19 08/14/19 Rx Allergies Allergy/AdvReac Type Severity Reaction Status Date / Time metoprolol [From Lopressor] AdvReac Nausea & Verified 08/14/19 22:34 Vomiting Physical Exam Vitals: Vital Signs Temp Pulse Resp BP Pulse Ox 08/15/19 08:14 91 08/15/19 07:10 92 26 H 96 08/15/19 07:00 94 24 110/69 97 08/15/19 06:50 92 24 110/69 96 08/15/19 06:40 92 18 95 08/15/19 06:30 93 24 113/71 96 08/15/19 06:20 93 25 H 108/76 97 08/15/19 06:10 91 26 H 97 08/15/19 06:00 91 26 H 96 08/15/19 05:50 93 24 111/77 97 08/15/19 05:40 92 26 H 96 08/15/19 05:30 94 24 98/72 96 08/15/19 05:20 90 24 96 08/15/19 05:10 92 26 H 96/66 96 08/15/19 05:00 90 28 H 96 08/15/19 04:50 90 26 H 97/73 96 08/15/19 04:40 91 24 96 08/15/19 04:30 93 26 H 96 08/15/19 04:20 93 24 96 08/15/19 04:10 92 18 107/71 96 08/15/19 04:00 97.8 F 92 18 96 08/15/19 03:50 92 18 96 08/15/19 03:40 89 20 96 08/15/19 03:30 89 18 96 08/15/19 03:27 97.6 F 08/15/19 03:20 87 18 102/74 96 08/15/19 03:10 87 16 102/74 96 08/15/19 03:00 87 15 96/65 96 08/15/19 02:50 87 15 96/65 96 08/15/19 02:40 84 14 96 08/15/19 02:30 85 16 109/75 97 08/15/19 02:20 80 13 98 08/15/19 02:10 79 14 97 08/15/19 02:00 79 28 H 97 08/15/19 01:50 77 24 101/66 97 08/15/19 01:40 78 24 96 08/15/19 01:30 92 18 94 L 08/15/19 01:20 84 16 94 L 08/15/19 01:10 90 25 H 95 08/15/19 01:00 79 18 87/54 97 08/15/19 00:50 82 17 112/76 96 08/15/19 00:40 95.8 F L 93 25 H 96/76 96 08/15/19 00:33 92 19 08/14/19 23:00 94 78/53 100 08/14/19 22:55 96 94/59 100 08/14/19 22:50 101 H 97/69 100 08/14/19 22:45 100 126/73 99 08/14/19 22:40 101 H 110/65 99 08/14/19 22:35 105 H 130/75 96 08/14/19 22:00 113 H 14 120/78 96 08/14/19 21:48 130 H 14 103/62 97 08/14/19 21:43 116 H 14 83/60 Intake and Output 08/14/19 08/15/19 08/15/19 22:59 06:59 14:59 Intake Total 723.694 98.616 Output Total 310 100 Balance 413.694 -1.384 Intake: IV 562 75 Sodium Chloride 0.9% 1, 450 75 000 ml @ 75 mls/hr IV . [id number] [facility] Rx#:[id number] Intake, IV Titration 161.694 23.616 Amount Norepinephrine 32 mg In 10.199 23.616 Sodium Chloride 0.9% 218 ml @ 0.05 MCG/KG/MIN 2. 126 mls/hr IV .Q24H [facility] Rx#:[id number] Propofol 1,000 mg In 151.495 Empty Bag 1 bag @ Titrate IV .Q0M [facility] Rx#: [id number] Output: Urine 310 100 Other: Voiding Method Indwelling Catheter Weight 90.718 kg 81.2 kg ABP, PAP, CO, CI - Last 8 Hours Arterial Blood Pressure 108/31 Arterial Blood Pressure 111/73 Arterial Blood Pressure 105/64 Arterial Blood Pressure 106/65 Arterial Blood Pressure 94/62 Arterial Blood Pressure 103/63 Arterial Blood Pressure 93/57 Arterial Blood Pressure 103/63 Arterial Blood Pressure 120/74 Arterial Blood Pressure 106/67 Arterial Blood Pressure 106/67 Arterial Blood Pressure 94/64 Arterial Blood Pressure 104/67 Arterial Blood Pressure 93/67 Arterial Blood Pressure 100/66 Arterial Blood Pressure 105/69 Arterial Blood Pressure 97/70 Arterial Blood Pressure 87/65 Arterial Blood Pressure 94/68 Arterial Blood Pressure 100/71 Arterial Blood Pressure 105/69 Arterial Blood Pressure 97/70 Arterial Blood Pressure 105/68 Arterial Blood Pressure 94/67 Arterial Blood Pressure 95/65 Arterial Blood Pressure 99/67 Arterial Blood Pressure 87/65 Arterial Blood Pressure 97/63 Arterial Blood Pressure 100/64 Arterial Blood Pressure 115/71 Arterial Blood Pressure 104/60 Arterial Blood Pressure 100/61 Arterial Blood Pressure 98/61 Arterial Blood Pressure 101/59 Arterial Blood Pressure 48/48 Arterial Blood Pressure 110/64 Arterial Blood Pressure 126/72 Arterial Blood Pressure 70/44 Arterial Blood Pressure 97/58 Arterial Blood Pressure 110/62 Gen: This is a 74-year-old male. Patient is intubated and on mechanical ventilation. Patient appears to be comfortable and in no acute distress. HEENT: Head is atraumatic, normocephalic. Pupils equal, round. Sclerae is anic teric. NECK: Supple. No JVD. No lymphadenopathy. No thyromegaly. LUNGS: Scattered wheezes or rhonchi. No intercostal retractions. HEART: Regular rate and rhythm. Systolic murmur. ABDOMEN: Soft. Bowel sounds are present. No masses. No tenderness. EXTREMITIES: No pedal edema. No calf tenderness. NEUROLOGICAL: Patient is sedated. Results CBC & Chem 7: 08/15/19 04:57 08/15/19 04:57 Labs: Abnormal Lab Results - Last 24 Hours (Table) 08/14/19 08/14/19 08/14/19 Range/Units 21:54 21:54 21:54 WBC 13.0 H (3.8-10.6) k/uL MCHC 30.2 L (31.0-37.0) g/dL Neutrophils # 8.1 H (1.3-7.7) k/uL Lymphocytes # (1.0-4.8) k/uL PT (9.0-12.0) sec INR (<1.2) APTT (22.0-30.0) sec ABG pH (7.35-7.45) ABG pCO2 (35-45) mmHg ABG pO2 (83-108) mmHg ABG HCO3 (21-25) mmol/L ABG Total CO2 (19-24) mmol/L ABG O2 Saturation (94-97) % VBG pH 6.91 L* (7.31-7.41) VBG HCO3 10 L (24-28) mmol/L Chloride (98-107) mmol/L Carbon Dioxide 12 L (22-30) mmol/L Creatinine 1.56 H (0.66-1.25) mg/dL Glucose 342 H (74-99) mg/dL POC Glucose (mg/dL) (75-99) mg/dL Calcium 8.3 L (8.4-10.2) mg/dL AST 178 H (17-59) U/L ALT 145 H (21-72) U/L Troponin I (0.000-0.034) ng/mL Total Protein 6.0 L (6.3-8.2) g/dL Albumin 3.4 L (3.5-5.0) g/dL Triglycerides (<150) mg/dL HDL Cholesterol (40-60) mg/dL Ur Specific [employer] (1.001-1.035) Urine Protein (Negative) Urine Glucose (UA) (Negative) Urine Ketones (Negative) Urine Blood (Negative) Urine RBC (0-5) /hpf Amorphous Sediment (None) /hpf Hyaline Casts (0-2) /lpf Urine Mucus (None) /hpf 08/14/19 08/14/19 08/14/19 Range/Units 21:54 21:54 22:00 WBC (3.8-10.6) k/uL MCHC (31.0-37.0) g/dL Neutrophils # (1.3-7.7) k/uL Lymphocytes # (1.0-4.8) k/uL PT 12.6 H (9.0-12.0) sec INR 1.2 H (<1.2) APTT 35.7 H (22.0-30.0) sec ABG pH (7.35-7.45) ABG pCO2 (35-45) mmHg ABG pO2 (83-108) mmHg ABG HCO3 (21-25) mmol/L ABG Total CO2 (19-24) mmol/L ABG O2 Saturation (94-97) % VBG pH (7.31-7.41) VBG HCO3 (24-28) mmol/L Chloride (98-107) mmol/L Carbon Dioxide (22-30) mmol/L Creatinine (0.66-1.25) mg/dL Glucose (74-99) mg/dL POC Glucose (mg/dL) 303 H (75-99) mg/dL Calcium (8.4-10.2) mg/dL AST (17-59) U/L ALT (21-72) U/L Troponin I 0.110 H* (0.000-0.034) ng/mL Total Protein (6.3-8.2) g/dL Albumin (3.5-5.0) g/dL Triglycerides (<150) mg/dL HDL Cholesterol (40-60) mg/dL Ur Specific [employer] (1.001-1.035) Urine Protein (Negative) Urine Glucose (UA) (Negative) Urine Ketones (Negative) Urine Blood (Negative) Urine RBC (0-5) /hpf Amorphous Sediment (None) /hpf Hyaline Casts (0-2) /lpf Urine Mucus (None) /hpf 08/14/19 08/15/19 08/15/19 Range/Units 22:15 00:33 01:25 WBC (3.8-10.6) k/uL MCHC (31.0-37.0) g/dL Neutrophils # (1.3-7.7) k/uL Lymphocytes # (1.0-4.8) k/uL PT (9.0-12.0) sec INR (<1.2) APTT (22.0-30.0) sec ABG pH 6.95 L* 7.30 L (7.35-7.45) ABG pCO2 51 H 49 H (35-45) mmHg ABG pO2 123 H 70 L (83-108) mmHg ABG HCO3 11 L (21-25) mmol/L ABG Total CO2 13 L 25 H (19-24) mmol/L ABG O2 Saturation 92.3 L (94-97) % VBG pH (7.31-7.41) VBG HCO3 (24-28) mmol/L Chloride (98-107) mmol/L Carbon Dioxide (22-30) mmol/L Creatinine (0.66-1.25) mg/dL Glucose (74-99) mg/dL POC Glucose (mg/dL) 230 H (75-99) mg/dL Calcium (8.4-10.2) mg/dL AST (17-59) U/L ALT (21-72) U/L Troponin I (0.000-0.034) ng/mL Total Protein (6.3-8.2) g/dL Albumin (3.5-5.0) g/dL Triglycerides (<150) mg/dL HDL Cholesterol (40-60) mg/dL Ur Specific [employer] (1.001-1.035) Urine Protein (Negative) Urine Glucose (UA) (Negative) Urine Ketones (Negative) Urine Blood (Negative) Urine RBC (0-5) /hpf Amorphous Sediment (None) /hpf Hyaline Casts (0-2) /lpf Urine Mucus (None) /hpf 08/15/19 08/15/19 08/15/19 Range/Units 01:53 04:57 04:57 WBC (3.8-10.6) k/uL MCHC (31.0-37.0) g/dL Neutrophils # (1.3-7.7) k/uL Lymphocytes # (1.0-4.8) k/uL PT (9.0-12.0) sec INR (<1.2) APTT (22.0-30.0) sec ABG pH (7.35-7.45) ABG pCO2 (35-45) mmHg ABG pO2 (83-108) mmHg ABG HCO3 (21-25) mmol/L ABG Total CO2 (19-24) mmol/L ABG O2 Saturation (94-97) % VBG pH (7.31-7.41) VBG HCO3 (24-28) mmol/L Chloride 108 H (98-107) mmol/L Carbon Dioxide (22-30) mmol/L Creatinine 1.32 H (0.66-1.25) mg/dL Glucose 157 H (74-99) mg/dL POC Glucose (mg/dL) (75-99) mg/dL Calcium (8.4-10.2) mg/dL AST (17-59) U/L ALT (21-72) U/L Troponin I 12.600 H* (0.000-0.034) ng/mL Total Protein (6.3-8.2) g/dL Albumin (3.5-5.0) g/dL Triglycerides 239 H (<150) mg/dL HDL Cholesterol 34 L (40-60) mg/dL Ur Specific [employer] 1.037 H (1.001-1.035) Urine Protein 1+ H (Negative) Urine Glucose (UA) 3+ H (Negative) Urine Ketones Trace H (Negative) Urine Blood Moderate H (Negative) Urine RBC 9 H (0-5) /hpf Amorphous Sediment Rare H (None) /hpf Hyaline Casts 100 H (0-2) /lpf Urine Mucus Rare H (None) /hpf 08/15/19 08/15/19 08/15/19 Range/Units 04:57 06:08 08:00 WBC 18.0 H (3.8-10.6) k/uL MCHC (31.0-37.0) g/dL Neutrophils # 16.0 H (1.3-7.7) k/uL Lymphocytes # 0.9 L (1.0-4.8) k/uL PT (9.0-12.0) sec INR (<1.2) APTT (22.0-30.0) sec ABG pH (7.35-7.45) ABG pCO2 (35-45) mmHg ABG pO2 >400 H (83-108) mmHg ABG HCO3 (21-25) mmol/L ABG Total CO2 25 H (19-24) mmol/L ABG O2 Saturation 100.0 H (94-97) % VBG pH (7.31-7.41) VBG HCO3 (24-28) mmol/L Chloride (98-107) mmol/L Carbon Dioxide (22-30) mmol/L Creatinine (0.66-1.25) mg/dL Glucose (74-99) mg/dL POC Glucose (mg/dL) 138 H (75-99) mg/dL Calcium (8.4-10.2) mg/dL AST (17-59) U/L ALT (21-72) U/L Troponin I (0.000-0.034) ng/mL Total Protein (6.3-8.2) g/dL Albumin (3.5-5.0) g/dL Triglycerides (<150) mg/dL HDL Cholesterol (40-60) mg/dL Ur Specific [employer] (1.001-1.035) Urine Protein (Negative) Urine Glucose (UA) (Negative) Urine Ketones (Negative) Urine Blood (Negative) Urine RBC (0-5) /hpf Amorphous Sediment (None) /hpf Hyaline Casts (0-2) /lpf Urine Mucus (None) /hpf Thrombosis Risk Factor Assmnt - DVT/VTE Prophylaxis DVT/VTE Prophylaxis: Pharmacologic Prophylaxis ordered Assessment and Plan Plan: 1. Cardiopulmonary arrest possibly related to acute non-ST [place] status post emergent heart catheterization. CAT scan of the brain negative, lower extremity Dopplers ruled out DVT. Consult with cardiology appreciated. Echocardiogram ordered. 2. Recent hospitalization for non-ST elevated myocardial infarction status post stenting of the LAD. 3. Acute hypoxic respiratory failure secondary to cardiopulmonary arrest, intubated and on mechanical ventilation. Consult with Dr. Sanderson appreciated. Patient is status post Lasix 40 mg IV push 1, patient started on same Medrol 40 mg every 6 hours.. 4. Cardiogenic shock requiring vasopressor. 5. Pulmonary fibrosis. 6. Polycythemia most likely secondary to obstructive sleep apnea. 7. Prostate cancer, under the care of Dr. Huynh. 8. Hypertension. 9. Hyperlipidemia. 10. Mild aortic stenosis. 11. Peripheral neuropathy. 12. Benign prostatic hypertrophy. 13. Generalized anxiety disorder. Patient is normally on Xanax and Celexa. 14. DVT prophylaxis. 15. GI prophylaxis. Protonix IV. CODE STATUS: Full code Patient will be admitted to the hospital for a minimum of 5 night stay. Discharge plan: To be determined Impression and plan of care have been directed as dictated by the signing physician. Jodee Joya nurse practitioner acting as scribe for signing physician.
--- NOTE | 2019-08-15 11:50 | PN ---
PROGRESS NOTE This patient's medical records and the events over the last 24 hours reviewed. Patient's condition also discussed with Dr. Abel. This patient was admitted with syncope and cardiac arrest. When the EMS arrived, the patient had a pulseless electrical activity. After resuscitation pulse and blood pressure were obtained. The patient recently underwent stent to the LAD. The repeat cardiac catheterization showed evidence suggestive of left main ostial stenosis. The patient currently is sedated and intubated and the neurological status is difficult to assess. Patient is currently on a small dose of the Levophed. Blood pressure is 108/31 mmHg. First and second heart sounds are heard. Lungs are clinically clear to auscultation and percussion. Abdomen is soft. The patient's creatinine is 1.32. The troponin is 12.62. The EKG done yesterday showed evidence of ST-segment depression in the anterior leads with some ST-segment elevation in the AVR. EKG did not show trace was normalized. No more dysrhythmias are noted. No dysrhythmias are noted at present. FINAL IMPRESSION: This patient is status post cardiac arrest. The current repeat cardiac catheterization is suggestive of ostial left main stenosis. Patient currently remains intubated. Underlying significant anoxic encephalopathy cannot be entirely excluded. A repeat echocardiogram was done which does not show any definite regional wall motion abnormality. There is a mild global hypokinesia noted. Right ventricle is enlarged. We will discuss with Dr. Abel and he will possibly undergo stent to the left main ostial stenosis. I also explained to the family members that hopefully the patient may benefit from that, but there is no definite 100% guarantee that his syncope may be resolved with that. MMODL / IJN: [id number] /
[2019-08-15] MEDS ORDERED: IV FLUID CONTINUATION 1,000 ML IV ONE (12:05)
[2019-08-15] MEDS ORDERED: LIDOCAINE 1% INJ 10MG/ML (20 ML MDV) ONE (12:09)
[2019-08-15] MEDS ORDERED: LIDOCAINE 1% INJ 10MG/ML (20 ML MDV) SQ ONE (12:24)
[2019-08-15] MEDS ORDERED: BIVALIRUDIN BOLUS 250 MG/50 ML IV ONE (12:37)
[2019-08-15] MEDS ORDERED: CLOPIDOGREL 75 MG TAB ONE (13:16)
[2019-08-15] MEDS ORDERED: ATROPINE SULFATE 0.1 MG/ML 10ML SYRINGE IV PRN (13:22)
[2019-08-15] MEDS ORDERED: MAG HYDROX/AL HYDROX/SIMETH 30 ML CUP PO PRN (13:22)
[2019-08-15] MEDS ORDERED: NITROGLYCERIN SL TABS 0.4 MG TAB SUBLINGUAL PRN (13:22)
[2019-08-15] MEDS ORDERED: ZOLPIDEM 5 MG TAB PO PRN (13:22)
--- NOTE | 2019-08-15 13:22 | P.CNPUL ---
History of Present Illness Consult date: 08/15/19 Requesting physician: Jaylin Smith Reason for consult: other (Cardiopulmonary arrest.) Chief complaint: Cardiac arrest History of present illness: This is a 74-year-old white male, known history of idiopathic pulmonary fibrosis, patient was recently admitted with recurrent episodes of syncope. U nderwent cardiac catheterization, and stenting of LAD. Patient was ruled in for acute coronary syndrome and Dr. Menjivar performed stenting of the LAD. His echocardiogram showed normal LV function and mild aortic stenosis. Patient underwent loop recorder placement before he was discharged home. Apparently while at home, patient developed a sudden episode of profound weakness while he was going to the bathroom, and while the family was assisting him, patient went unresponsive. CPR was done by family members. And when EMS arrived, patient was in pulseless electrical activity. And brought back into atrial fibrillation with RVR, his total down time was roughly about 30 minutes. Underwent emergent cardiac catheterization by Dr. Fan and he was found to have chronic total occlusion of the RCA however it has collateral flow from the left coronary system. There was also evidence of severe disease involving the ostial left main intermediate to severe disease involving the left circumflex and he was found to have a patent stent in the proximal LAD. No intervention was done, today he was seen again by cardiology, and they are considering possibility of transferring the patient to [facility] for possible left ventricular assist device . is still reluctant about the option of the transfer, and I suggested that she discusses this with the vacuum drum drier operator on the case. My main concern is the fact that the patient may have developed anoxic brain injury considering his prolonged downtime. Pulmonary-tripp, patient is now on mechanical ventilation, and his ventilator settings are assist control rate of 18 tidal volume of 500 FiO2 was 100% I cut it down to 50%, and I increased the PEEP to 8. ABG on 100% FiO2 showed a pO2 of 400 pCO2 of 36 pH of 7.42. Earlier ABG showed a pO2 of 70 pCO2 of 49 and pH of 7.30 on the same ventilator settings however his chest x-ray at the time showed evidence of interstitial edema with interstitial lung disease/pulmonary fibrosis. His renal functioning is noted to be abnormal with creatinine of 1.32, admission creatinine was 1.56. Troponin was high at 12.6. CT brain without contrast showed no acute intracranial abnormality review is lacunar infarct in the basal ganglia on the left. Venous Doppler of lower extremities showed no evidence of deep vein thromboses in both lower extremities. Patient was placed empirically on heparin/low intensity. I reviewed the vacuum drum drier operator note, he seems to be concerned about his ostial left main stenosis and his mild global hypokinesia. He is entertaining the possibility of undergoing stent to the left main ostial stenosis and again that was discussed with the family by cardiology. Review of Systems ROS unobtainable: due to endotracheal tube Past Medical History Past Medical History: Cancer, Hyperlipidemia, Myocardial Infarction ([place]), Prostate Disorder Additional Past Medical History / Comment(s): prostate cancer, sees DR Huynh currently, pulmonary fibrosis Last Myocardial Infarction Date:: 1989 History of Any Multi-Drug Resistant Organisms: None Reported Past Surgical History: Appendectomy Additional Past Surgical History / Comment(s): colonoscopy with Dr. Downs, right eye retina, bilateral cataract Past Anesthesia/Blood Transfusion Reactions: No Reported Reaction Past Psychological History: No Psychological Hx Reported, Depression Smoking Status: Former smoker - Past Family History Father Family Medical History: Cancer Additional Family Medical History / Comment(s): Father at age 65 from lym phoma. Mother Additional Family Medical History / Comment(s): Mother at age 85 with history of coronary artery disease. Patient has one sister who has had breast c ancer. Patient has 1 son and 1 daughter with no major medical problems. Medications and Allergies Home Medications Medication Instructions Recorded Confirmed Type Citalopram Hydrobromide [CeleXA] 20 mg PO HS 11/07/17 08/14/19 History ALPRAZolam [Xanax] 1 mg PO HS 08/12/19 08/14/19 History C,E,Zinc,Copper 11/Dejly3w/Lut 1 cap PO HS 08/12/19 08/14/19 History [Ocuvite Adult 50 Plus Softgel] Gabapentin [Neurontin] 300 mg PO HS 08/12/19 08/14/19 History Melatonin 10 mg PO HS 08/12/19 08/14/19 History Pirfenidone [Esbriet] 801 mg PO AC-TID 08/12/19 08/14/19 History Tamsulosin [Flomax] 0.8 mg PO HS 08/12/19 08/14/19 History Triamcinolone 0.1% Cream [Kenalog 1 applicatio TOPICAL BID PRN 08/12/19 08/14/19 History 0.1% Cream] Acetaminophen Tab [Tylenol] 650 mg PO Q6HR PRN tab 08/14/19 08/14/19 Rx Aspirin 81 mg PO DAILY chew 08/14/19 08/14/19 Rx Atorvastatin [Lipitor] 80 mg PO HS #90 tab 08/14/19 08/14/19 Rx Clopidogrel [Plavix] 75 mg PO DAILY #90 tab 08/14/19 08/14/19 Rx Nitroglycerin Sl Tabs [Nitrostat] 0.4 mg SUBLINGUAL Q5M PRN #25 tab 08/14/19 08/14/19 Rx Allergies Allergy/AdvReac Type Severity Reaction Status Date / Time metoprolol [From Lopressor] AdvReac Nausea & Verified 08/14/19 22:34 Vomiting Physical Exam Vitals: Vital Signs Temp Pulse Resp BP Pulse Ox 08/15/19 11:00 88 14 104/70 95 08/15/19 10:30 83 15 106/71 96 08/15/19 10:00 83 14 96/63 96 08/15/19 09:30 86 15 96/63 96 08/15/19 09:00 83 16 100/71 96 08/15/19 08:34 97 08/15/19 08:30 84 16 142/89 97 08/15/19 08:14 91 08/15/19 08:00 99.5 F 91 21 103/72 96 08/15/19 07:30 92 15 101/73 96 08/15/19 07:10 92 26 H 96 08/15/19 07:00 94 24 110/69 97 08/15/19 06:50 92 24 110/69 96 08/15/19 06:40 92 18 95 08/15/19 06:30 93 24 113/71 96 08/15/19 06:20 93 25 H 108/76 97 08/15/19 06:10 91 26 H 97 08/15/19 06:00 91 26 H 96 08/15/19 05:50 93 24 111/77 97 08/15/19 05:40 92 26 H 96 08/15/19 05:30 94 24 98/72 96 08/15/19 05:20 90 24 96 08/15/19 05:10 92 26 H 96/66 96 08/15/19 05:00 90 28 H 96 08/15/19 04:50 90 26 H 97/73 96 08/15/19 04:40 91 24 96 08/15/19 04:30 93 26 H 96 08/15/19 04:20 93 24 96 08/15/19 04:10 92 18 107/71 96 08/15/19 04:00 97.8 F 92 18 96 08/15/19 03:50 92 18 96 08/15/19 03:40 89 20 96 08/15/19 03:30 89 18 96 08/15/19 03:27 97.6 F 08/15/19 03:20 87 18 102/74 96 08/15/19 03:10 87 16 102/74 96 08/15/19 03:00 87 15 96/65 96 08/15/19 02:50 87 15 96/65 96 08/15/19 02:40 84 14 96 08/15/19 02:30 85 16 109/75 97 08/15/19 02:20 80 13 98 08/15/19 02:10 79 14 97 08/15/19 02:00 79 28 H 97 08/15/19 01:50 77 24 101/66 97 08/15/19 01:40 78 24 96 08/15/19 01:30 92 18 94 L 08/15/19 01:20 84 16 94 L 08/15/19 01:10 90 25 H 95 08/15/19 01:00 79 18 87/54 97 08/15/19 00:50 82 17 112/76 96 08/15/19 00:40 95.8 F L 93 25 H 96/76 96 08/15/19 00:33 92 19 08/14/19 23:00 94 78/53 100 08/14/19 22:55 96 94/59 100 08/14/19 22:50 101 H 97/69 100 08/14/19 22:45 100 126/73 99 08/14/19 22:40 101 H 110/65 99 08/14/19 22:35 105 H 130/75 96 08/14/19 22:00 113 H 14 120/78 96 08/14/19 21:48 130 H 14 103/62 97 08/14/19 21:43 116 H 14 83/60 Intake and Output 08/14/19 08/15/19 08/15/19 22:59 06:59 14:59 Intake Total 723.694 505.419 Output Total 310 525 Balance 413.694 -19.581 Intake: IV 562 375 Sodium Chloride 0.9% 1, 450 375 000 ml @ 75 mls/hr IV . [id number] Rx#:[id number] Intake, IV Titration 161.694 130.419 Amount Norepinephrine 32 mg In 10.199 30.419 Sodium Chloride 0.9% 218 ml @ 0.05 MCG/KG/MIN 2. 126 mls/hr IV .Q24H [facility] Rx#:[id number] Propofol 1,000 mg In 151.495 100.000 Empty Bag 1 bag @ Titrate IV [facility] Rx#: [id number] Output: Urine 310 525 Other: Voiding Method Indwelling Catheter Indwelling Catheter Weight 90.718 kg 81.2 kg ABP, PAP, CO, CI - Last 8 Hours Arterial Blood Pressure 121/72 Arterial Blood Pressure 98/60 Arterial Blood Pressure 105/63 Arterial Blood Pressure 97/56 Arterial Blood Pressure 90/52 Arterial Blood Pressure 111/68 Arterial Blood Pressure 104/64 Arterial Blood Pressure 89/56 Arterial Blood Pressure 108/31 Arterial Blood Pressure 111/73 Arterial Blood Pressure 105/64 Arterial Blood Pressure 106/65 Arterial Blood Pressure 94/62 Arterial Blood Pressure 103/63 Arterial Blood Pressure 93/57 Arterial Blood Pressure 103/63 Arterial Blood Pressure 120/74 Arterial Blood Pressure 106/67 Arterial Blood Pressure 106/67 Arterial Blood Pressure 94/64 Arterial Blood Pressure 104/67 Physical Exam: Revealed a 74-year-old white male, sedated, intubated, on mechanical ventilation. Head: Atraumatic, normocephalic. Endotracheal tube and orogastric tube are intact. HEENT:[Neck is supple.] [No neck masses.] [No thyromegaly.] [No JVD.] Chest: [Symmetrical chest expansion, crackles at the bases bilaterally, no rhonchi no wheezes.] Cardiac Exam: [Normal S1 and S2, no S3 gallop, no murmur.] Abdomen: [Soft, nontender, no megaly, no rebound, no guarding, normal bowel sounds.] Extremities: [Positive clubbing, no edema, no cyanosis.] Neurological Exam: Pupils are equally reactive to light and accommodation. Patient is unresponsive, however he is presently on propofol. Patient was tried on a lower dose of propofol to assess mental status, and he was extremely agitated, and could not ventilate the patient properly, became asynchronous with the ventilator. Hence we will resume back on his usual dose of propofol which is presently 75 mcg/kg/m. Psychiatric: Could not be assessed. Skin: No rashes. Results - Laboratory Findings CBC and BMP: 08/15/19 04:57 08/15/19 04:57 ABG ABG pH 7.42 (7.35-7.45) 08/15/19 08:00 ABG pCO2 36 mmHg (35-45) 08/15/19 08:00 ABG pO2 >400 mmHg (83-108) H 08/15/19 08:00 ABG O2 Saturation 100.0 % (94-97) H 08/15/19 08:00 PT/INR, D-dimer PT 12.6 sec (9.0-12.0) H 08/14/19 21:54 INR 1.2 (<1.2) H 08/14/19 21:54 Abnormal lab findings: Abnormal Labs 08/14/19 08/14/19 08/14/19 21:54 21:54 21:54 WBC 13.0 H MCHC 30.2 L Neutrophils # 8.1 H Lymphocytes # PT INR APTT ABG pH ABG pCO2 ABG pO2 ABG HCO3 ABG Total CO2 ABG O2 Saturation VBG pH 6.91 L* VBG HCO3 10 L Chloride Carbon Dioxide 12 L Creatinine 1.56 H Glucose 342 H POC Glucose (mg/dL) Calcium 8.3 L AST 178 H ALT 145 H Troponin I Total Protein 6.0 L Albumin 3.4 L Triglycerides HDL Cholesterol Ur Specific [place] Urine Protein Urine Glucose (UA) Urine Ketones Urine Blood Urine RBC Amorphous Sediment Hyaline Casts Urine Mucus 08/14/19 08/14/19 08/14/19 21:54 21:54 22:00 WBC MCHC Neutrophils # Lymphocytes # PT 12.6 H INR 1.2 H APTT 35.7 H ABG pH ABG pCO2 ABG pO2 ABG HCO3 ABG Total CO2 ABG O2 Saturation VBG pH VBG HCO3 Chloride Carbon Dioxide Creatinine Glucose POC Glucose (mg/dL) 303 H Calcium AST ALT Troponin I 0.110 H* Total Protein Albumin Triglycerides HDL Cholesterol Ur Specific [place] Urine Protein Urine Glucose (UA) Urine Ketones Urine Blood Urine RBC Amorphous Sediment Hyaline Casts Urine Mucus 08/14/19 08/15/19 08/15/19 22:15 00:33 01:25 WBC MCHC Neutrophils # Lymphocytes # PT INR APTT ABG pH 6.95 L* 7.30 L ABG pCO2 51 H 49 H ABG pO2 123 H 70 L ABG HCO3 11 L ABG Total CO2 13 L 25 H ABG O2 Saturation 92.3 L VBG pH VBG HCO3 Chloride Carbon Dioxide Creatinine Glucose POC Glucose (mg/dL) 230 H Calcium AST ALT Troponin I Total Protein Albumin Triglycerides HDL Cholesterol Ur Specific [place] Urine Protein Urine Glucose (UA) Urine Ketones Urine Blood Urine RBC Amorphous Sediment Hyaline Casts Urine Mucus 08/15/19 08/15/19 08/15/19 01:53 04:57 04:57 WBC MCHC Neutrophils # Lymphocytes # PT INR APTT ABG pH ABG pCO2 ABG pO2 ABG HCO3 ABG Total CO2 ABG O2 Saturation VBG pH VBG HCO3 Chloride 108 H Carbon Dioxide Creatinine 1.32 H Glucose 157 H POC Glucose (mg/dL) Calcium AST ALT Troponin I 12.600 H* Total Protein Albumin Triglycerides 239 H HDL Cholesterol 34 L Ur Specific [place] 1.037 H Urine Protein 1+ H Urine Glucose (UA) 3+ H Urine Ketones Trace H Urine Blood Moderate H Urine RBC 9 H Amorphous Sediment Rare H Hyaline Casts 100 H Urine Mucus Rare H 08/15/19 08/15/19 08/15/19 04:57 06:08 08:00 WBC 18.0 H MCHC Neutrophils # 16.0 H Lymphocytes # 0.9 L PT INR APTT ABG pH ABG pCO2 ABG pO2 >400 H ABG HCO3 ABG Total CO2 25 H ABG O2 Saturation 100.0 H VBG pH VBG HCO3 Chloride Carbon Dioxide Creatinine Glucose POC Glucose (mg/dL) 138 H Calcium AST ALT Troponin I Total Protein Albumin Triglycerides HDL Cholesterol Ur Specific [place] Urine Protein Urine Glucose (UA) Urine Ketones Urine Blood Urine RBC Amorphous Sediment Hyaline Casts Urine Mucus - Diagnostic Findings Chest x-ray: image reviewed (As noted in HPI, there is evidence of interstitial lung disease/pulmonary fibrosis, and superimposed congestive heart failure.) Assessment and Plan Assessment: Impression: 1 cardiopulmonary arrest, acute coronary syndrome acute non-ST elevation myocardial infarction 2 acute on chronic hypoxic respiratory failure secondary to systolic congestive heart failure and underlying interstitial lung disease/usual interstitial pneumonitis. 3 recent hospitalization for non-ST elevation myocardial infarction and status post stenting of LAD. 4 history of interstitial lung disease/pulmonary fibrosis 5 cardiogenic shock and ischemic cardiomyopathy/LV dysfunction. 6 benign essential hypertension 7 mild aortic stenosis 8 benign prostatic hypertrophy 9 strongly suspect anoxic brain injury, however it is a bit too early to assess the severity of anoxic brain injury, and family was made aware of this. Patient will be clinically assessed in the next 24 hours. Recommendation: Continue present supportive care measures, continue ventilatory support. Continue hemodynamic support pressors or inotropes if necessary. Nutritional support to be addressed in the next 24 hours. GI and DVT prophylaxis. Started the patient empirically on heparin, venous Doppler of the lower extremities is negative. Cardiology is considering transferring the patient to [facility] or repeat cardiac catheterization and stenting of the left main. Discussed his condition and updated his on his status. Prognosis is extremely poor and guarded considering the findings on his cardiac catheterization and considering his underlying pulmonary fibrosis and possibly now we may be dealing with a significant anoxic brain injury. We'll continue to follow. Obviously patient is critically ill at this point. Time with Patient: Greater than 30
[2019-08-15] MEDS ORDERED: CLOPIDOGREL 75 MG TAB PO ONE (13:23)
[2019-08-15] MEDS ORDERED: BIVALIRUDIN 250 MG in SODIUM CHLORIDE 0.9% 50 ML IV ONE (13:24)
--- NOTE | 2019-08-15 14:38 | PTCA ---
PERCUTANEOUSTRANS CORORONARY ANGIOGRAPHY DATE OF SERVICE: August 15, 2019 PERFORMING PHYSICIAN: Duran Abel MD. PROCEDURE PERFORMED: Successful stenting of the ostial left main coronary artery using 4.0 x 12 mm Xience KAMAR with an excellent angiographic results and reduction of stenosis from 70% to 0%. INDICATION: This is a 74-year-old gentleman who underwent had a cardiopulmonary arrest at home. He underwent yesterday heart catheterization and was found to have patent stent in the LAD with concerning disease involving the ostial left main coronary artery. APPROACH: Right common femoral artery. COMPLICATION: None. LEVEL OF SEDATION: Moderate with sedation length of 50 minutes. PROCEDURE DESCRIPTION: After obtaining an informed consent, the patient was brought to the cardiac wharf labourer. I had a long discussion with the family earlier today about the risks of the procedure including as well as the benefits as well as the alternative and the family were in full understanding regarding the procedure. Discussion took place in the ICU. DESCRIPTION OF PROCEDURE: The patient was brought to the cardiac wharf labourer. He was prepped and draped in the usual sterile fashion. The patient already had a 6-Australian sheath, which was exchanged into a new 6-Australian sheath. I did selective right common femoral artery angiogram on multiple view and it showed a plaque just by the sheath entry site. I did two Perclose and I placed an 8-Australian sheath and the following angiogram showed concerning disease and because of that, I did not place an Impella. I did engage the left main using a JL4 short tip. I did wire it using a run-through wire. Before that anticoagulation was initiated using Angiomax. Subsequently I did balloon angioplasty using a 3.5 x 12 mm balloon which was inflated under less than 10 seconds before I deployed a 4.0 x 12 mm Xience KAMAR, which was inflated under 14 atmospheres for less than 10 seconds. The following angiogram showed excellent angiographic results and the procedure was completed without any complication. POSTPROCEDURE MANAGEMENT: 1. Dual anti-platelet therapy. 2. Risk factor modifications. 3. Follow up with the patient. MMODL / IJN: [id number] /
[2019-08-15 16:51] LABS: INR 1.2 (<1.2); Partial Thromboplastin Time 59.8 sec (22.0-30.0); Prothrombin Time 12.7 sec (9.0-12.0)
[2019-08-15 17:57] LABS: Glucose,Whole Blood 137 mg/dL (75-99)
[2019-08-15 23:54] LABS: Glucose,Whole Blood 163 mg/dL (75-99)
[2019-08-16] MEDS: methylPREDNISolone SOD SUCCI 40 MG/ML 1 ML VIAL IV SCH ×5 (01:17→23:34)
[2019-08-16] MEDS: PROPOFOL 1,000 MG in EMPTY BAG 1 BAG IV SCH ×6 (01:45→23:31)
[2019-08-16] MEDS: fentaNYL (PF) 1,000 MCG in SODIUM CHLORIDE 0.9% 80 ML IV SCH ×2 (04:21→15:25)
[2019-08-16 05:40] LABS: Basophils % (A) 0 %; Eosinophils # (A) 0.1 k/uL (0-0.7); Eosinophils % (A) 0 %; HCT 42.4 % (39.0-53.0); HGB 14.3 gm/dL (13.0-17.5); Lymphocytes # (A) 0.7 k/uL (1.0-4.8); Lymphocytes % (A) 6 %; MCHC 33.7 g/dL (31.0-37.0); MCV 88.9 fL (80.0-100.0); Mean Platelet Volume 7.2; Monocytes # (A) 0.5 k/uL (0-1.0); Monocytes % (A) 4 %; Neutrophils # (A) 10.1 k/uL (1.3-7.7); Neutrophils % (A) 88 %; Platelet Count 202 k/uL (150-450); RBC 4.78 m/uL (4.30-5.90); RDW 14.1 % (11.5-15.5); WBC 11.5 k/uL (3.8-10.6)
[2019-08-16 05:50] LABS: African American GFR (CKD) >90 (>60 ml/min/1.73 sqM); Non-African American GFR(CKD) 85 (>60 ml/min/1.73 sqM)
[2019-08-16 06:50] LABS: Glucose,Whole Blood 162 mg/dL (75-99)
--- NOTE | 2019-08-16 06:53 | XR ---
EXAMINATION TYPE: XR chest 1V portable DATE OF EXAM: 08/16/2019 HISTORY: Tube placement. REFERENCE: Previous study dated 08/15/2019. FINDINGS: The patient is ET tube, NG tube and right internal jugular catheter remain in place, unchan ged in appearance. Heart size upper limits of normal. There is vascular congestion and pulmonary edema. There are small, bilateral effusions. IMPRESSION: WORSENING CHANGES OF CONGESTIVE HEART FAILURE.
[2019-08-16 07:10] LABS: ABG Base Excess 0.6 mmol/L; ABG HCO3 26 mmol/L (21-25); ABG Oxygen Saturation 92.3 % (94-97); ABG PCO2 44 mmHg (35-45); ABG PH 7.38 (7.35-7.45); ABG PO2 66 mmHg (83-108); ABG TCO2 27 mmol/L (19-24); Allen Test Performed? Yes
[2019-08-16] MEDS: IPRATROPIUM-ALBUTEROL 3 ML NEB INHALATION SCH ×4 (07:16→20:09)
[2019-08-16 08:00] LABS: African American GFR (CKD) >90 (>60 ml/min/1.73 sqM); Anion Gap 8 mmol/L; Blood Urea Nitrogen 19 mg/dL (9-20); Calcium 8.3 mg/dL (8.4-10.2); Carbon Dioxide 24 mmol/L (22-30); Chloride 110 mmol/L (98-107); Glucose 136 mg/dL (74-99); Non-African American GFR(CKD) 85 (>60 ml/min/1.73 sqM); Potassium 4.5 mmol/L (3.5-5.1); Sodium 142 mmol/L (137-145)
[2019-08-16] MEDS: CHLORHEXIDINE GLUCONATE 15 ML CUP MUCOUS MEM SCH ×2 (08:17→21:29)
[2019-08-16] MEDS: ASPIRIN 325 MG TAB PO SCH (08:17)
[2019-08-16] MEDS: PANTOPRAZOLE 40 MG/10 ML VIAL IV SCH (08:17)
[2019-08-16] MEDS: HEPARIN SODIUM,PORCINE 5,000 UNIT/ML 1 ML VIAL SQ SCH ×3 (10:20→23:33)
[2019-08-16] MEDS: FUROSEMIDE 10 MG/ML 4 ML VIAL IV SCH ×2 (10:20→21:29)
[2019-08-16 11:35] LABS: Glucose,Whole Blood 143 mg/dL (75-99)
[2019-08-16] MEDS: CLOPIDOGREL 75 MG TAB PO SCH (12:12)
--- NOTE | 2019-08-16 12:31 | P.PN ---
Subjective Progress Note Date: 08/16/19 Principal diagnosis: Cardiopulmonary arrest This is a 74-year-old white male, known history of idiopathic pulmonary fibrosis, patient was recently admitted with recurrent episodes of syncope. Underwent cardiac catheterization, and stenting of LAD. Patient was ruled in for acute coronary syndrome and Dr. Menjivar performed stenting of the LAD. His echocardiogram showed normal LV function and mild aortic stenosis. Patient underwent loop recorder placement before he was discharged home. Apparently while at home, patient developed a sudden episode of profound weakness while he was going to the bathroom, and while the family was assisting him, patient went unresponsive. CPR was done by family members. And when EMS arrived, patient was in pulseless electrical activity. And brought back into atrial fibrillation with RVR, his total down time was roughly about 30 minutes. Underwent emergent cardiac catheterization by Dr. Fan and he was found to have chronic total oc clusion of the RCA however it has collateral flow from the left coronary system. There was also evidence of severe disease involving the ostial left main intermediate to severe disease involving the left circumflex and he was found to have a patent stent in the proximal LAD. No intervention was done, today he was seen again by cardiology, and they are considering possibility of transferring the patient to [facility] for possible left ventricular assist device . is still reluctant about the option of the transfer, and I suggested that she discusses this with the treating and pumping supervisor on the case. My main concern is the fact that the patient may have developed anoxic brain injury considering his prolonged downtime. Pulmonary-tripp, patient is now on mechanical ventilation, and his ventilator settings are assist control rate of 18 tidal volume of 500 FiO2 was 100% I cut it down to 50%, and I increased the PEEP to 8. ABG on 100% FiO2 showed a pO2 of 400 pCO2 of 36 pH of 7.42. Earlier ABG showed a pO2 of 70 pCO2 of 49 and pH of 7.30 on the same ventilator settings however his chest x- ray at the time showed evidence of interstitial edema with interstitial lung disease/pulmonary fibrosis. His renal functioning is noted to be abnormal with creatinine of 1.32, admission creatinine was 1.56. Troponin was high at 12.6. CT brain without contrast showed no acute intracranial abnormality review is lacunar infarct in the basal ganglia on the left. Venous Doppler of lower extre mities showed no evidence of deep vein thromboses in both lower extremities. Patient was placed empirically on heparin/low intensity. I reviewed the treating and pumping supervisor note, he seems to be concerned about his ostial left main stenosis and his mild global hypokinesia. He is entertaining the possibility of undergoing stent to the left main ostial stenosis and again that was discussed with the family by cardiology. Reevaluated today on 08/16/2019, patient remains in the ICU, intubated, mechanically ventilated. His ventilator settings are assist control rate of 18, tidal volume of 500, FiO2 is 50%, PEEP is at 8. However considering his ABG is marginal, I increased the FiO2 up to 60%, and recommended a dose of Lasix 40 mg IV push. Chest x-ray showed interstitial lung disease/UIP, and there is likely some component of systolic congestive heart failure./Pulmonary edema. ABG showed a pO2 of 66 pCO2 of 44 pH of 7.38. Electrolytes and renal profile are normal. CBC showed WBC count of 11.5 hemoglobin is 14.3. Chest x-ray showed interstitial lung disease and possibly worsening changes of congestive heart failure. Yesterday after I evaluated the patient, patient was seen again by Dr. Fan, and he performed successful stenting of the ostial left main coronary artery reducing stenosis from 70% to 0%. His LAD stent remains patent. Patient is off IV heparin, he is on dual antiplatelet therapy, and I recommended subcu heparin today. I have also recommended enteral feeding. Recommended EEG, and a neurological consultation. I have also recommended that we hold sedation and assessment of status if possible today. Yesterday in spite of being on 75 mcg/kg/m of propofol, patient was not synchronous with mechanical ventilation, and I had to start him on fentanyl 1 mcg/kg/h. Which seemed to help significantly. Objective - Vital Signs Vital signs: Vital Signs Temp 99.0 F 08/16/19 08:00 Pulse 81 08/16/19 11:43 Resp 9 L 08/16/19 11:00 BP 147/79 08/16/19 11:00 Pulse Ox 94 L 08/16/19 11:00 Intake & Output 08/15/19 08/16/19 08/16/19 18:59 06:59 18:59 Intake Total 8915.763 6767.329 509.868 Output Total 925 715 335 Balance 606.684 338.329 174.868 Weight 83.7 kg Intake: IV 1105 675 Sodium Chloride 0.9% 1, 975 675 000 ml @ 75 mls/hr IV . [id number] [facility] Rx#:[id number] Intake, IV Titration 426.684 378.329 509.868 Amount Norepinephrine 32 mg In 68.220 3.061 Sodium Chloride 0.9% 218 ml @ 0.05 MCG/KG/MIN 2. 126 mls/hr IV .Q24H [facility] Rx#:[id number] Propofol 1,000 mg In 358.464 375.268 89.261 Empty Bag 1 bag @ Titrate IV .Q0M [facility] Rx#: [id number] Sodium Chloride 0.9% 1, 375 000 ml @ 75 mls/hr IV . [id number] [facility] Rx#:[id number] fentaNYL (PF) 1,000 mcg 45.607 In Sodium Chloride 0.9% 80 ml @ 1 MCG/KG/HR 8.12 mls/hr IV .[id number] [facility] Rx #:[id number] Output: Urine 925 715 335 Other: Voiding Method Indwelling Catheter Indwelling Catheter Indwelling Catheter ABP, PAP, CO, CI - Last Documented Arterial Blood Pressure 114/63 - Exam Physical Exam: Revealed a 74-year-old white male, sedated, intubated, on mechanical ventilation. Head: Atraumatic, normocephalic. Endotracheal tube and orogastric tube are intact. HEENT:[Neck is supple.] [No neck masses.] [No thyromegaly.] [No JVD.] Chest: [Symmetrical chest expansion, crackles at the bases bilaterally, no rhonchi no wheezes.] Cardiac Exam: [Normal S1 and S2, no S3 gallop, no murmur.] Abdomen: [Soft, nontender, no megaly, no rebound, no guarding, normal bowel sounds.] Extremities: [Positive clubbing, no edema, no cyanosis.] Neurological Exam: Pupils are equally reactive to light and accommodation. Patient is unresponsive, however he is presently on propofol. He was also placed on fentanyl 1 mcg/kg/h yesterday. Psychiatric: Could not be assessed. Skin: No rashes. - Labs CBC & Chem 7: 08/16/19 05:19 12/08/19 05:30 Labs: Abnormal Lab Results - Last 24 Hours (Table) 08/15/19 08/15/19 08/15/19 Range/Units 16:30 16:30 17:55 WBC (3.8-10.6) k/uL Neutrophils # (1.3-7.7) k/uL Lymphocytes # (1.0-4.8) k/uL PT 12.7 H (9.0-12.0) sec INR 1.2 H (<1.2) APTT 59.8 H (22.0-30.0) sec ABG pO2 (83-108) mmHg ABG HCO3 (21-25) mmol/L ABG Total CO2 (19-24) mmol/L ABG O2 Saturation (94-97) % Chloride (98-107) mmol/L Glucose (74-99) mg/dL POC Glucose (mg/dL) 137 H (75-99) mg/dL Calcium (8.4-10.2) mg/dL Troponin I 9.180 H* (0.000-0.034) ng/mL 08/15/19 08/16/19 08/16/19 Range/Units 23:53 05:19 05:30 WBC 11.5 H (3.8-10.6) k/uL Neutrophils # 10.1 H (1.3-7.7) k/uL Lymphocytes # 0.7 L (1.0-4.8) k/uL PT (9.0-12.0) sec INR (<1.2) APTT (22.0-30.0) sec ABG pO2 (83-108) mmHg ABG HCO3 (21-25) mmol/L ABG Total CO2 (19-24) mmol/L ABG O2 Saturation (94-97) % Chloride 110 H (98-107) mmol/L Glucose 136 H (74-99) mg/dL POC Glucose (mg/dL) 163 H (75-99) mg/dL Calcium 8.3 L (8.4-10.2) mg/dL Troponin I (0.000-0.034) ng/mL 08/16/19 08/16/19 08/16/19 Range/Units 06:48 07:04 11:33 WBC (3.8-10.6) k/uL Neutrophils # (1.3-7.7) k/uL Lymphocytes # (1.0-4.8) k/uL PT (9.0-12.0) sec INR (<1.2) APTT (22.0-30.0) sec ABG pO2 66 L (83-108) mmHg ABG HCO3 26 H (21-25) mmol/L ABG Total CO2 27 H (19-24) mmol/L ABG O2 Saturation 92.3 L (94-97) % Chloride (98-107) mmol/L Glucose (74-99) mg/dL POC Glucose (mg/dL) 162 H 143 H (75-99) mg/dL Calcium (8.4-10.2) mg/dL Troponin I (0.000-0.034) ng/mL Microbiology - Last 24 Hours (Table) 08/15/19 01:31 Gram Stain - Preliminary Sputum Sputum Culture - Preliminary Assessment and Plan Assessment: Impression: 1 cardiopulmonary arrest, acute coronary syndrome acute non-ST elevation myocardial infarction 2 acute on chronic hypoxic respiratory failure secondary to systolic congestive heart failure and underlying interstitial lung disease/usual interstitial pneumonitis. 3 recent hospitalization for non-ST elevation myocardial infarction and status post stenting of LAD. 4 history of interstitial lung disease/pulmonary fibrosis 5 cardiogenic shock and ischemic cardiomyopathy/LV dysfunction. 6 benign essential hypertension 7 mild aortic stenosis 8 benign prostatic hypertrophy 9 strongly suspect anoxic brain injury, initiated neurological consultation. EEG was ordered to be done in a.m. 10 status post stenting of left main ostial lesion reducing stenosis from 70% to 0% done on 08/15/2019. Recommendation: Continue present supportive care measures, continue ventilatory support. Continue hemodynamic support pressors or inotropes if necessary. Nutritional support to be addressed in the next 24 hours. Trial of diuretics with Lasix 40 mg IV push every 12 hours. GI and DVT prophylaxis. Continue dual antiplatelet therapy since the patient had 2 stents put in one in LAD and one in the left main. Discussed his condition and updated his on his status. Prognosis remains extremely guarded, especially with the patient developed any sort of anoxic brain injury and that's yet to be determined. Plan to hold sedation and narcotics today, and hopefully get a brief assessment of his mental status today. EEG was ordered to be done in a.m. And a neurological consultation will be performed in a.m. We'll continue to follow. Critical care time is 40 minutes, family updated on his condition. Time with Patient: Greater than 30
--- NOTE | 2019-08-16 12:35 | ECHOF ---
Referral Reason:s/p cardiac arrest MEASUREMENTS -------- HEIGHT: 182.9 cm WEIGHT: 81.2 kg BP: IVSd: 1.8 cm (0.6 - 1.1) LVIDd: 3.2 cm (3.9 - 5.3) LVPWd: 1.7 cm (0.6 - 1.1) EDV(Teich): 42 ml IVSs: 1.7 cm LVIDs: 2.6 cm LVPWs: 2.0 cm %IVS Thck: -3 % ESV(Teich): 25 ml EF(Teich): 41 % %FS: 19 % SV(Teich): 17 ml LVOT Diam: 2.0 cm RVIDd: 3.0 cm (< 3.3) Ao Diam: 2.9 cm (2.0 - 3.7) LA Diam: 3.1 cm (2.7 - 3.8) AV Cusp: 1.1 cm (1.5 - 2.6) EPSS: 0.4 cm MV E Dexter: 0.25 m/s MV DecT: 159 ms MV Dec Flagler: 1.6 m/s MV A Dexter: 0.47 m/s MV E/A Ratio: 0.54 MV PHT: 46 ms MR Vmax: 0.93 m/s MR maxP.46 mmHg LVOT Vmax: 0.78 m/s LVOT maxP.40 mmHg AV Vmax: 1.39 m/s AV maxP.70 mmHg MIKE Vmax, Pt: 1.7 cm TR Vmax: 0.89 m/s TR maxP.15 mmHg RAP: 5.00 mmHg RVSP: 8.15 mmHg MV EF SLOPE: 62.69 mm/s (70 - 150) MV EXCURSION: 11.80 mm (> 18.000) FINDINGS -------- Sinus rhythm. This was a technically difficult study with suboptimal views. Pt. on a vent. The left ventricular size is normal. There is severe concentric left ventricular hypertrophy. Ove rall left ventricular systolic function is mild-moderately impaired with, an EF between 40 - 45 %. RV Promident The left atrium was not well visualized. xx ml of Lumason was utilized for enhancement of images. The aortic valve was not well visualized. The mitral valve was not well visualized. The tricuspid valve was not well visualized. The pulmonic valve was not well visualized. There is no pericardial effusion. CONCLUSIONS -------- 1. Sinus rhythm. 2. This was a technically difficult study with suboptimal views. 3. Pt. on a vent. 4. The left ventricular size is normal. 5. There is severe concentric left ventricular hypertrophy. 6. Overall left ventricular systolic function is mild-moderately impaired with, an EF between 40 - 45 %. 7. RV Promident 8. The left atrium was not well visualized. 9. xx ml of Lumason was utilized for enhancement of images. 10. The aortic valve was not well visualized. 11. The mitral valve was not well visualized. 12. The tricuspid valve was not well visualized. 13. The pulmonic valve was not well visualized. 14. There is no pericardial effusion. PRODUCTION COUNTER: Gail Patricio RDCS
--- NOTE | 2019-08-16 12:45 | P.PN ---
Subjective Progress Note Date: 08/16/19 This is a 74-year-old male patient of Dr. Loving, Dr. Sanderson patient with past medical history of idiopathic pulmonary fibrosis, prostate cancer under the care of Dr. Huynh, hyperlipidemia, polycythemia, recurrent depression, remote history of tobacco use quit 2 years ago. Patient has had several episodes of syncope not well explained and underwent MRI of the brain and blood work and had a recent hospitalization discharged from the hospital yesterday after he was admitted with syncope. At that point he was ruled in for acute coronary syndrome and underwent catheterization and stenting of the left anterior descending artery. Also the patient underwent at the same admission, an echocardiogram which revealed normal LV function with mild aortic stenosis. He underwent also a loop recorder before he was discharged home. Patient was brought into the emergency center as he was found unresponsive by his family at home. Family did CPR and called for an ambulance. Patient was found to be in PEA and brought back into atrial fibrillation with RVR and normal blood pressure when the ambulance arrived to the emergency room. Down time was a total of 30 minutes. Patient underwent emergent heart catheterization with Dr. Abel that revealed chronic total occlusion of the RCA which fills by collateral from the left coronary system, severe disease involving the ostial left main coronary artery, intermediate to severe disease involving the left circumflex, and patent stents in the proximal left anterior descending artery. The chest x-ray showed findings consistent was congestive heart failure. Patient was admitted to the intensive care unit. On presentation, initial WBC count was 13 out of 18, pH 6.95, pCO2 51, pO2 123, bicarb 11, total CO2 13. Blood sugar 342. Troponins initially 0.110 and repeat 12.6. Triglycerides 239, cholesterol 170, LDL 88, HDL 34. Urinalysis cloudy, blood moderate. Patient was intubated and placed on mechanical ventilation with tidal volume 500, FiO2 70, PEEP. He also required norepinephrine for cardiogenic shock. CAT scan of the brain showed no acute findings. Ultrasound of bilateral lower extremities negative for DVT. 08/16: Yesterday, patient returned to the [employer] and underwent percutaneous coronary angiogram gravity with stenting of the ostial left main coronary artery that had a 70% stenosis reduced to 0%. Patient remains in intensive care unit intubated on mechanical ventilation with tidal volume 500, FiO2 50, PEEP of 8. Plan for patient to be placed on a sedation holiday today. Neurologic status is not known at this time multiple family members are at the bedside and have been updated. Neurology will be available on Saturday and EEG ordered. He has been afebrile, heart rate in the 80s, blood pressure 147/79. Repeat lab work reveals white count of 11.5, hemoglobin 14.3, platelet count 202. Creatinine 0.89. Blood sugars run between 136 and 162. Sputum culture is in progress. Chest x- ray this morning shows worsening changes of heart failure. Dr. Sanderson is ordered additional Lasix. Plan Review of Systems ROS unobtainable: due to endotracheal tube Objective - Vital Signs Vital signs: Vital Signs Temp 99 F 08/16/19 04:00 Pulse 87 08/16/19 07:40 Resp 22 08/16/19 06:00 BP 108/70 08/16/19 06:00 Pulse Ox 91 L 08/16/19 06:00 Intake & Output 08/15/19 08/16/19 08/16/19 18:59 06:59 18:59 Intake Total 8394.593 3892.329 123.820 Output Total 925 715 Balance 606.684 338.329 123.820 Weight 83.7 kg Intake: IV 1105 675 Sodium Chloride 0.9% 1, 975 675 000 ml @ 75 mls/hr IV . [id number] [facility] Rx#:[id number] Intake, IV Titration 426.684 378.329 123.820 Amount Norepinephrine 32 mg In 68.220 3.061 Sodium Chloride 0.9% 218 ml @ 0.05 MCG/KG/MIN 2. 126 mls/hr IV .Q24H [facility] Rx#:[id number] Propofol 1,000 mg In 358.464 375.268 78.213 Empty Bag 1 bag @ Titrate IV .Q0M [facility] Rx#: [id number] fentaNYL (PF) 1,000 mcg 45.607 In Sodium Chloride 0.9% 80 ml @ 1 MCG/KG/HR 8.12 mls/hr IV .[id number] [facility] Rx #:[id number] Output: Urine 925 715 Other: Voiding Method Indwelling Catheter Indwelling Catheter ABP, PAP, CO, CI - Last Documented Arterial Blood Pressure 114/63 - Exam Gen: This is a 74-year-old male. Patient is intubated and on mechanical ventilation. Patient appears to be comfortable and in no acute distress. Patient is off vasopressors. HEENT: Head is atraumatic, normocephalic. Pupils equal, round. Sclerae is anicteric. NECK: Supple. No JVD. No lymphadenopathy. No thyromegaly. LUNGS: Scattered wheezes or rhonchi. No intercostal retractions. HEART: Regular rate and rhythm. Systolic murmur. ABDOMEN: Soft. Bowel sounds are present. No masses. No tenderness. EXTREMITIES: No pedal edema. No calf tenderness. NEUROLOGICAL: Patient is sedated. - Labs CBC & Chem 7: 08/16/19 05:19 08/16/19 05:30 Labs: Abnormal Lab Results - Last 24 Hours (Table) 08/15/19 08/15/19 08/15/19 Range/Units 16:30 16:30 17:55 WBC (3.8-10.6) k/uL Neutrophils # (1.3-7.7) k/uL Lymphocytes # (1.0-4.8) k/uL PT 12.7 H (9.0-12.0) sec INR 1.2 H (<1.2) APTT 59.8 H (22.0-30.0) sec ABG pO2 (83-108) mmHg ABG HCO3 (21-25) mmol/L ABG Total CO2 (19-24) mmol/L ABG O2 Saturation (94-97) % Chloride (98-107) mmol/L Glucose (74-99) mg/dL POC Glucose (mg/dL) 137 H (75-99) mg/dL Calcium (8.4-10.2) mg/dL Troponin I 9.180 H* (0.000-0.034) ng/mL 08/15/19 08/16/19 08/16/19 Range/Units 23:53 05:19 05:30 WBC 11.5 H (3.8-10.6) k/uL Neutrophils # 10.1 H (1.3-7.7) k/uL Lymphocytes # 0.7 L (1.0-4.8) k/uL PT (9.0-12.0) sec INR (<1.2) APTT (22.0-30.0) sec ABG pO2 (83-108) mmHg ABG HCO3 (21-25) mmol/L ABG Total CO2 (19-24) mmol/L ABG O2 Saturation (94-97) % Chloride 110 H (98-107) mmol/L Glucose 136 H (74-99) mg/dL POC Glucose (mg/dL) 163 H (75-99) mg/dL Calcium 8.3 L (8.4-10.2) mg/dL Troponin I (0.000-0.034) ng/mL 08/16/19 08/16/19 Range/Units 06:48 07:04 WBC (3.8-10.6) k/uL Neutrophils # (1.3-7.7) k/uL Lymphocytes # (1.0-4.8) k/uL PT (9.0-12.0) sec INR (<1.2) APTT (22.0-30.0) sec ABG pO2 66 L (83-108) mmHg ABG HCO3 26 H (21-25) mmol/L ABG Total CO2 27 H (19-24) mmol/L ABG O2 Saturation 92.3 L (94-97) % Chloride (98-107) mmol/L Glucose (74-99) mg/dL POC Glucose (mg/dL) 162 H (75-99) mg/dL Calcium (8.4-10.2) mg/dL Troponin I (0.000-0.034) ng/mL Microbiology - Last 24 Hours (Table) 08/15/19 01:31 Gram Stain - Preliminary Sputum Sputum Culture - Preliminary Assessment and Plan Plan: 1. Cardiopulmonary arrest possibly related to acute non-ST NV status post emergent heart catheterization, PTCA and stenting of the ostial left main coronary artery. CAT scan of the brain negative, lower extremity Dopplers ruled out DVT. Consult with cardiology appreciated. Echocardiogram ordered. Continue aspirin, Plavix 75 mg daily. 2. Recent hospitalization for non-ST elevated myocardial infarction status post stenting of the LAD. 3. Acute hypoxic respiratory failure secondary to cardiopulmonary arrest, intubated and on mechanical ventilation. Consult with Dr. Sanderson appreciated. Patient is status post Lasix 40 mg IV push 1, patient started on same Medrol 40 mg every 6 hours. 4. Cardiogenic shock requiring vasopressor. 5. Pulmonary fibrosis. 6. Polycythemia most likely secondary to obstructive sleep apnea. 7. Prostate cancer, under the care of Dr. Huynh. 8. Hypertension. 9. Hyperlipidemia. 10. Mild aortic stenosis. 11. Peripheral neuropathy. 12. Benign prostatic hypertrophy. 13. Generalized anxiety disorder. Patient is normally on Xanax and Celexa. 14. DVT prophylaxis. 15. GI prophylaxis. Protonix IV. CODE STATUS: Full code Patient will be admitted to the hospital for a minimum of 5 night stay. Discharge plan: To be determined Impression and plan of care have been directed as dictated by the signing physician. Jodee Joya nurse practitioner acting as scribe for signing physician.
[2019-08-16 18:04] LABS: Glucose,Whole Blood 146 mg/dL (75-99)
[2019-08-16] MEDS: SODIUM CHLORIDE 0.9% 1,000 ML IV SCH (21:30)
[2019-08-17 00:10] LABS: Glucose,Whole Blood 144 mg/dL (75-99)
[2019-08-17] MEDS ORDERED: INSULIN ASPART (NovoLOG) 100 UNIT/ML VIAL SQ SCH (00:30)
[2019-08-17] MEDS: fentaNYL (PF) 1,000 MCG in SODIUM CHLORIDE 0.9% 80 ML IV SCH (03:31)
[2019-08-17 04:36] LABS: Basophils % (A) 0 %; Eosinophils % (A) 0 %; HGB 13.2 gm/dL (13.0-17.5); Lymphocytes # (A) 0.5 k/uL (1.0-4.8); Lymphocytes % (A) 4 %; MCH 29.6 pg (25.0-35.0); MCHC 32.9 g/dL (31.0-37.0); Mean Platelet Volume 7.1; Monocytes # (A) 0.6 k/uL (0-1.0); Monocytes % (A) 4 %; Neutrophils # (A) 11.2 k/uL (1.3-7.7); Neutrophils % (A) 89 %; Platelet Count 187 k/uL (150-450); RBC 4.45 m/uL (4.30-5.90); RDW 14.1 % (11.5-15.5); WBC 12.5 k/uL (3.8-10.6)
[2019-08-17 04:39] LABS: ABG HCO3 30 mmol/L (21-25); ABG PCO2 55 mmHg (35-45); ABG PH 7.34 (7.35-7.45); ABG PO2 77 mmHg (83-108); ABG TCO2 31 mmol/L (19-24); Allen Test Performed? Yes
[2019-08-17 06:01] LABS: African American GFR (CKD) >90 (>60 ml/min/1.73 sqM); Anion Gap 6 mmol/L; Blood Urea Nitrogen 26 mg/dL (9-20); Calcium 8.4 mg/dL (8.4-10.2); Carbon Dioxide 30 mmol/L (22-30); Chloride 105 mmol/L (98-107); Glucose 151 mg/dL (74-99); Non-African American GFR(CKD) 81 (>60 ml/min/1.73 sqM); Potassium 4.7 mmol/L (3.5-5.1); Sodium 141 mmol/L (137-145)
[2019-08-17 06:17] LABS: Glucose,Whole Blood 137 mg/dL (75-99)
[2019-08-17] MEDS: INSULIN ASPART (NovoLOG) 100 UNIT/ML VIAL SQ SCH ×3 (06:26→18:02)
[2019-08-17] MEDS: methylPREDNISolone SOD SUCCI 40 MG/ML 1 ML VIAL IV SCH ×3 (06:28→18:03)
[2019-08-17] MEDS: SODIUM CHLORIDE 0.9% 1,000 ML IV SCH ×2 (08:28→18:04)
[2019-08-17] MEDS: CLOPIDOGREL 75 MG TAB PO SCH (08:43)
[2019-08-17] MEDS: CHLORHEXIDINE GLUCONATE 15 ML CUP MUCOUS MEM SCH ×2 (08:43→22:41)
[2019-08-17] MEDS: ASPIRIN 325 MG TAB PO SCH (08:43)
[2019-08-17] MEDS: HEPARIN SODIUM,PORCINE 5,000 UNIT/ML 1 ML VIAL SQ SCH ×2 (08:43→16:18)
[2019-08-17] MEDS: PANTOPRAZOLE 40 MG/10 ML VIAL IV SCH (08:44)
[2019-08-17] MEDS: FUROSEMIDE 10 MG/ML 4 ML VIAL IV SCH ×2 (08:44→22:41)
[2019-08-17] MEDS: IPRATROPIUM-ALBUTEROL 3 ML NEB INHALATION SCH ×4 (09:01→19:21)
--- NOTE | 2019-08-17 09:14 | XR ---
EXAMINATION TYPE: XR chest 1V portable DATE OF EXAM: 08/17/2019 COMPARISON: 08/16/2019 HISTORY: Tube placement TECHNIQUE: Single frontal view of the chest is obtained. FINDINGS: The patient is ET tube, NG tube and right internal jugular catheter remain in place, uncha nged in appearance. Heart size upper limits of normal. There is persistent increased interstitial mar kings. There are small, bilateral effusions. Hypertrophic and degenerative change of the spine noted. IMPRESSION: 1. Coarsened interstitium correlate for pulmonary fibrosis. Superimposed venous congestion or interst itial pneumonitis in the differential diagnosis and appears stable.
[2019-08-17] MEDS: PROPOFOL 1,000 MG in EMPTY BAG 1 BAG IV SCH ×2 (09:48→15:55)
--- NOTE | 2019-08-17 10:00 | PN ---
PROGRESS NOTE PULMONARY CRITICAL CARE PROGRESS NOTE: DATE OF SERVICE: August 17, 2019 CRITICAL CARE TIME: 36 minutes. This is a 74-year-old gentleman who was admitted on August 14 through the emergency room. He sustained a cardiopulmonary arrest. He was resuscitated for up to 30 minutes. He sustained a non ST-segment elevation myocardial infarction. The patient was eventually resuscitated but was thought to have anoxic brain injury. Seen by my partner yesterday. The patient did have a left main stent as well as an LAD stent placed. He does have a history of underlying pulmonary fibrosis and sees my partner as his lung doctor. The patient is currently on the ventilator. Yesterday, sedation was held, but he became very dyssynchronous and both fentanyl and propofol were restarted. In addition to his cardiopulmonary arrest with prolonged resuscitation, he has a history of a recent hospitalization for myocardial infarction at which time he had a stenting of the LAD. He does have a history of interstitial lung disease/pulmonary fibrosis, benign essential hypertension, mild aortic stenosis, BPH, as well as acute on chronic hypoxemic respiratory failure and systolic heart failure. Currently, he remains on the volume assist-control mode rate of 18, tidal volume 500, FiO2 of 50%, PEEP of 8. Blood gases show pO2 of 77, pCO2 of 55, and a pH 7.34. Blood gases are consistent with a relative hypoxemia and a mild respiratory acidosis. He is getting saline IV at 20 mL an hour, propofol at 50 mcg/kg per minute and fentanyl at 1 mcg/kg per hour. In addition, he is getting Vital 1.2 at 60 with a goal of 60 mL an hour. We are going to increase the rate from 18 to 22 and drop the tidal volume down from 500 to 450. The patient had a peak airway pressure of 20 and a plateau pressure of 15. The patient will have an EEG today. Neurology is on the case. His condition was apparently discussed with his yesterday by my partner. Also, he mentions in his note that the patient's overall prognosis remains very guarded given his cardiopulmonary arrest. PHYSICAL EXAMINATION: VITAL SIGNS: Current vital signs are reviewed. Temperature is 98.6, heart rate is 63, respiratory rate 22, blood pressure 106/61, mean 76, and saturations are in the mid 90s. GENERAL: Appears sedated. He is synchronous with the ventilator. HEENT: Examination is grossly unremarkable. There is an orally placed endotracheal tube. NECK: Supple. Full range of motion. No adenopathy. Neck veins are flat. CARDIOVASCULAR: Examination reveals regular rhythm and rate. Heart rate mid 60s. S1, S2 normal. Heart sounds are distant. LUNGS: Reveal some bibasilar crackles. No wheezes or rhonchi. Breath sounds equal. ABDOMEN: Soft. Bowel sounds are heard. EXTREMITIES: Are intact. No edema. SKIN: Without rash. NEUROLOGIC: Examination is difficult to assess given his current administration of both fentanyl and propofol. I did ask the nurse, Nikko, to stop the fentanyl. The chest x-ray shows bilateral interstitial changes consistent with pulmonary fibrosis. Microbiologic studies are thus far negative. LABS: Labs are reviewed. White count 12.5, hemoglobin 13.2, hematocrit 40, platelet count a 187,000. Sodium 141, potassium 4.7, chloride 105, CO2 is 30. Anion gap is 6. BUN and creatinine were 26 and 0.93. The rest of his labs look okay. His initial blood gas on admission had a pH of 6.95. His troponins were initially 0.11 and then jayleen to 9.180. CURRENT MEDICATIONS: Current medications are reviewed. Currently he is on aspirin, atropine, Peridex, Plavix, fentanyl, Lasix, subcu heparin, insulin, updrafts, Maalox, Solu-Medrol, Narcan, sublingual nitroglycerin, Protonix, propofol and Ambien. ASSESSMENT: 1. Status post cardiopulmonary arrest secondary to acute non ST-segment elevation myocardial infarction, with prolonged resuscitation of about 30 minutes, with suspected anoxic brain injury. 2. Acute on chronic hypoxemic respiratory failure secondary to systolic heart failure as well as an underlying pulmonary fibrosis. 3. Recent hospitalization for non ST-segment elevation myocardial infarction, status post stenting of the LAD. 4. History of long-standing pulmonary fibrosis. 5. History of cardiogenic shock and ischemic cardiomyopathy. 6. Benign essential hypertension. 7. Mild aortic stenosis. 8. Benign prostatic hypertrophy. 9. Suspected anoxic brain injury. 10.Recent stenting of the left main coronary artery on 08/15/2019. PLAN: The patient certainly is in a dire situation given his prolonged resuscitation time. He is suspected to have anoxic brain injury. Yesterday, off sedation, he became very dyssynchronous with the ventilator. Both propofol and fentanyl were restarted. We are going to stop the fentanyl. The patient is going to get an EEG. I have asked the nurse to wean down his propofol to the dose that seems to be of the lowest dose which is effectively controlling him and his agitation. The patient's overall prognosis remains poor. Medications are reviewed. Unnecessary medications are discontinued. We will continue to follow. No additional recommendations are made. CRITICAL CARE TIME: 36 minutes. RADHA / MARIANNA: [id number] /
[2019-08-17 11:37] LABS: Hemoglobin A1C 6.2 % (4.0-6.0)
[2019-08-17 11:50] LABS: Glucose,Whole Blood 157 mg/dL (75-99)
--- NOTE | 2019-08-17 12:37 | P.CNNES ---
History of Present Illness Consult date: 08/17/19 Requesting physician: Chaka Sanderson Chief complaint: Cardiac arrest, anoxic encephalopathy History of Present Illness: Patient is a 74-year-old male, who was recently admitted to the hospital for cardiac catheterization on 08/12/2019, when he underwent stenting in the LAD. Patient was discharged at 4:15 PM on 08/14/2019 in stable condition. Patient was at home, moving around, then at around 9 PM he passed out. Patient's family did not initiate CPR until EMS arrived 5 minutes later. Patient's downtime was about 20-30 minute, before ROSC. Patient was intubated. Patient was brought to the hospital. Patient did not undergo cooling protocol. Computed tomography scan of the head from 08/15/2019 showed no acute process. Previous lacunar infarcts in the basal ganglia on the left. Mild degenerative change. 2-D echo showed sinus rhythm, EF 40-45%. Left atrium was not well visualized. Patient has been tachypneic, therefore has been on propofol. He was on propofol 50 g, although has been turned down to 30 g as of this morning. Patient is not showing any seizure-like activity or any meaningful response otherwise. Please refer to examination below. Patient's chest x-ray showed coarse interstitium correlate for pulmonary fibrosis. Superimposed venous congestion or interstitial pneumonitis in the differential diagnosis and appears stable. Patient's hemoglobin A1c 6.2. Review of Systems ROS unobtainable: due to endotracheal tube, due to mental status Past Medical History Past Medical History: Cancer, Hyperlipidemia, Myocardial Infarction ([place]), Prostate Disorder Additional Past Medical History / Comment(s): prostate cancer, sees DR Huynh currently, pulmonary fibrosis Last Myocardial Infarction Date:: 1989 History of Any Multi-Drug Resistant Organisms: None Reported Past Surgical History: Appendectomy Additional Past Surgical History / Comment(s): colonoscopy with Dr. Downs, right eye retina, bilateral cataract Past Anesthesia/Blood Transfusion Reactions: No Reported Reaction Past Psychological History: No Psychological Hx Reported, Depression Smoking Status: Former smoker - Past Family History Father Family Medical History: Cancer Additional Family Medical History / Comment(s): Father at age 65 from lymphoma. Mother Additional Family Medical History / Comment(s): Mother at age 85 with history of coronary artery disease. Patient has one sister who has had breast cancer. Patient has 1 son and 1 daughter with no major medical problems. Medications and Allergies Home Medications Medication Instructions Recorded Confirmed Type Citalopram Hydrobromide [CeleXA] 20 mg PO HS 11/07/17 08/14/19 History ALPRAZolam [Xanax] 1 mg PO HS 08/12/19 08/14/19 History C,E,Zinc,Copper 11/Cnpot3m/Lut 1 cap PO HS 08/12/19 08/14/19 History [Ocuvite Adult 50 Plus Softgel] Gabapentin [Neurontin] 300 mg PO HS 08/12/19 08/14/19 History Melatonin 10 mg PO HS 08/12/19 08/14/19 History Pirfenidone [Esbriet] 801 mg PO AC-TID 08/12/19 08/14/19 History Tamsulosin [Flomax] 0.8 mg PO HS 08/12/19 08/14/19 History Triamcinolone 0.1% Cream [Kenalog 1 applicatio TOPICAL BID PRN 08/12/19 08/14/19 History 0.1% Cream] Acetaminophen Tab [Tylenol] 650 mg PO Q6HR PRN tab 08/14/19 08/14/19 Rx Aspirin 81 mg PO DAILY chew 08/14/19 08/14/19 Rx Atorvastatin [Lipitor] 80 mg PO HS #90 tab 08/14/19 08/14/19 Rx Clopidogrel [Plavix] 75 mg PO DAILY #90 tab 08/14/19 08/14/19 Rx Nitroglycerin Sl Tabs [Nitrostat] 0.4 mg SUBLINGUAL Q5M PRN #25 tab 08/14/19 08/14/19 Rx Allergies Allergy/AdvReac Type Severity Reaction Status Date / Time metoprolol [From Lopressor] AdvReac Nausea & Verified 08/14/19 22:34 Vomiting Physical Examination - Vital Signs Vital Signs: Vital Signs Temp Pulse Resp BP Pulse Ox 08/17/19 12:00 97.7 F 67 22 150/80 95 08/17/19 11:37 67 08/17/19 11:24 65 08/17/19 11:00 66 22 110/61 95 08/17/19 10:00 63 22 119/65 94 L 08/17/19 09:25 58 L 08/17/19 09:12 63 08/17/19 09:00 63 22 106/61 94 L 08/17/19 08:00 98.6 F 60 18 108/60 93 L 08/17/19 07:00 73 18 103/57 93 L 08/17/19 06:00 64 18 107/62 94 L 08/17/19 05:00 64 18 107/61 93 L 08/17/19 04:00 98.2 F 67 18 109/61 95 08/17/19 03:00 68 18 106/61 95 08/17/19 02:00 66 18 108/61 94 L 08/17/19 01:00 76 18 107/61 95 08/17/19 00:00 98.8 F 71 18 114/65 95 08/16/19 23:57 73 18 114/65 94 L 08/16/19 23:00 75 18 111/62 94 L 08/16/19 22:00 71 18 109/60 94 L 08/16/19 21:00 75 18 106/62 93 L 08/16/19 20:22 71 08/16/19 20:10 73 08/16/19 20:00 99.1 F 72 18 106/60 96 08/16/19 19:00 72 18 106/59 96 08/16/19 18:00 75 18 105/61 96 08/16/19 17:00 76 13 109/62 96 08/16/19 16:00 99.4 F 76 18 107/62 95 08/16/19 15:59 77 08/16/19 15:56 17 08/16/19 15:49 77 08/16/19 15:00 77 17 110/62 96 08/16/19 14:00 105 H 14 154/84 96 08/16/19 13:00 82 10 L 153/79 Intake and Output 08/16/19 08/17/19 08/17/19 22:59 06:59 14:59 Intake Total 544.650 787.415 446.297 Output Total 580 1060 305 Balance -35.350 -272.585 141.297 Intake: Intake, IV Titration 364.650 292.415 131.297 Amount Propofol 1,000 mg In 132.748 194.163 5.148 Empty Bag 1 bag @ Titrate IV .Q0M [facility] Rx#: [id number] Sodium Chloride 0.9% 1, 80 000 ml @ 20 mls/hr IV . Q24H [facility] Rx#:[id number] Sodium Chloride 0.9% 1, 225 000 ml @ 75 mls/hr IV . [id number] [facility] Rx#:[id number] fentaNYL (PF) 1,000 mcg 6.902 98.252 46.149 In Sodium Chloride 0.9% 80 ml @ 1 MCG/KG/HR 8.12 mls/hr IV .[id number] [facility] Rx #:[id number] Tube Feeding 150 435 285 Other 30 60 30 Output: Urine 580 1060 305 Other: Voiding Method Indwelling Catheter Indwelling Catheter Weight 85.8 kg On examination patient is an elderly male, who is intubated, partly sedated with propofol 30 g. No obvious seizure activity noted. Patient is comatose, does not respond to painful stimuli. His right pupil is ovoid, surgical with limited vision at baseline. His left pupil is about 3 mm, barely reacting. Oculocephalics absent. Corneals very minimally present only on the left. Patient is not breathing over the ventilator, partly from sedation. Jim galarza has weak gag, no cough. Tone is decreased all over. Reflexes are absent and plantars are flat. Results - Laboratory Findings CBC and BMP: 08/18/19 05:30 08/18/19 05:30 Abnormal Lab Findings: Abnormal Labs 08/14/19 08/14/19 08/14/19 21:54 21:54 21:54 WBC 13.0 H MCHC 30.2 L Neutrophils # 8.1 H Lymphocytes # PT INR APTT ABG pH ABG pCO2 ABG pO2 ABG HCO3 ABG Total CO2 ABG O2 Saturation VBG pH 6.91 L* VBG HCO3 10 L Chloride Carbon Dioxide 12 L BUN Creatinine 1.56 H Glucose 342 H POC Glucose (mg/dL) Hemoglobin A1c Calcium 8.3 L AST 178 H ALT 145 H Troponin I Total Protein 6.0 L Albumin 3.4 L Triglycerides HDL Cholesterol Ur Specific [place] Urine Protein Urine Glucose (UA) Urine Ketones Urine Blood Urine RBC Amorphous Sediment Hyaline Casts Urine Mucus 08/14/19 08/14/19 08/14/19 21:54 21:54 22:00 WBC MCHC Neutrophils # Lymphocytes # PT 12.6 H INR 1.2 H APTT 35.7 H ABG pH ABG pCO2 ABG pO2 ABG HCO3 ABG Total CO2 ABG O2 Saturation VBG pH VBG HCO3 Chloride Carbon Dioxide BUN Creatinine Glucose POC Glucose (mg/dL) 303 H Hemoglobin A1c Calcium AST ALT Troponin I 0.110 H* Total Protein Albumin Triglycerides HDL Cholesterol Ur Specific [place] Urine Protein Urine Glucose (UA) Urine Ketones Urine Blood Urine RBC Amorphous Sediment Hyaline Casts Urine Mucus 08/14/19 08/15/19 08/15/19 22:15 00:33 01:25 WBC MCHC Neutrophils # Lymphocytes # PT INR APTT ABG pH 6.95 L* 7.30 L ABG pCO2 51 H 49 H ABG pO2 123 H 70 L ABG HCO3 11 L ABG Total CO2 13 L 25 H ABG O2 Saturation 92.3 L VBG pH VBG HCO3 Chloride Carbon Dioxide BUN Creatinine Glucose POC Glucose (mg/dL) 230 H Hemoglobin A1c Calcium AST ALT Troponin I Total Protein Albumin Triglycerides HDL Cholesterol Ur Specific [place] Urine Protein Urine Glucose (UA) Urine Ketones Urine Blood Urine RBC Amorphous Sediment Hyaline Casts Urine Mucus 08/15/19 08/15/19 08/15/19 01:53 04:57 04:57 WBC MCHC Neutrophils # Lymphocytes # PT INR APTT ABG pH ABG pCO2 ABG pO2 ABG HCO3 ABG Total CO2 ABG O2 Saturation VBG pH VBG HCO3 Chloride 108 H Carbon Dioxide BUN Creatinine 1.32 H Glucose 157 H POC Glucose (mg/dL) Hemoglobin A1c Calcium AST ALT Troponin I 12.600 H* Total Protein Albumin Triglycerides 239 H HDL Cholesterol 34 L Ur Specific [place] 1.037 H Urine Protein 1+ H Urine Glucose (UA) 3+ H Urine Ketones Trace H Urine Blood Moderate H Urine RBC 9 H Amorphous Sediment Rare H Hyaline Casts 100 H Urine Mucus Rare H 08/15/19 08/15/19 08/15/19 04:57 06:08 08:00 WBC 18.0 H MCHC Neutrophils # 16.0 H Lymphocytes # 0.9 L PT INR APTT ABG pH ABG pCO2 ABG pO2 >400 H ABG HCO3 ABG Total CO2 25 H ABG O2 Saturation 100.0 H VBG pH VBG HCO3 Chloride Carbon Dioxide BUN Creatinine Glucose POC Glucose (mg/dL) 138 H Hemoglobin A1c Calcium AST ALT Troponin I Total Protein Albumin Triglycerides HDL Cholesterol Ur Specific [place] Urine Protein Urine Glucose (UA) Urine Ketones Urine Blood Urine RBC Amorphous Sediment Hyaline Casts Urine Mucus 08/15/19 08/15/19 08/15/19 16:30 16:30 17:55 WBC MCHC Neutrophils # Lymphocytes # PT 12.7 H INR 1.2 H APTT 59.8 H ABG pH ABG pCO2 ABG pO2 ABG HCO3 ABG Total CO2 ABG O2 Saturation VBG pH VBG HCO3 Chloride Carbon Dioxide BUN Creatinine Glucose POC Glucose (mg/dL) 137 H Hemoglobin A1c Calcium AST ALT Troponin I 9.180 H* Total Protein Albumin Triglycerides HDL Cholesterol Ur Specific [place] Urine Protein Urine Glucose (UA) Urine Ketones Urine Blood Urine RBC Amorphous Sediment Hyaline Casts Urine Mucus 08/15/19 08/16/19 08/16/19 23:53 05:19 05:30 WBC 11.5 H MCHC Neutrophils # 10.1 H Lymphocytes # 0.7 L PT INR APTT ABG pH ABG pCO2 ABG pO2 ABG HCO3 ABG Total CO2 ABG O2 Saturation VBG pH VBG HCO3 Chloride 110 H Carbon Dioxide BUN Creatinine Glucose 136 H POC Glucose (mg/dL) 163 H Hemoglobin A1c Calcium 8.3 L AST ALT Troponin I Total Protein Albumin Triglycerides HDL Cholesterol Ur Specific [place] Urine Protein Urine Glucose (UA) Urine Ketones Urine Blood Urine RBC Amorphous Sediment Hyaline Casts Urine Mucus 08/16/19 08/16/19 08/16/19 06:48 07:04 11:33 WBC MCHC Neutrophils # Lymphocytes # PT INR APTT ABG pH ABG pCO2 ABG pO2 66 L ABG HCO3 26 H ABG Total CO2 27 H ABG O2 Saturation 92.3 L VBG pH VBG HCO3 Chloride Carbon Dioxide BUN Creatinine Glucose POC Glucose (mg/dL) 162 H 143 H Hemoglobin A1c Calcium AST ALT Troponin I Total Protein Albumin Triglycerides HDL Cholesterol Ur Specific [place] Urine Protein Urine Glucose (UA) Urine Ketones Urine Blood Urine RBC Amorphous Sediment Hyaline Casts Urine Mucus 08/16/19 08/17/19 08/17/19 18:03 00:08 04:25 WBC 12.5 H MCHC Neutrophils # 11.2 H Lymphocytes # 0.5 L PT INR APTT ABG pH ABG pCO2 ABG pO2 ABG HCO3 ABG Total CO2 ABG O2 Saturation VBG pH VBG HCO3 Chloride Carbon Dioxide BUN Creatinine Glucose POC Glucose (mg/dL) 146 H 144 H Hemoglobin A1c Calcium AST ALT Troponin I Total Protein Albumin Triglycerides HDL Cholesterol Ur Specific [place] Urine Protein Urine Glucose (UA) Urine Ketones Urine Blood Urine RBC Amorphous Sediment Hyaline Casts Urine Mucus 08/17/19 08/17/19 08/17/19 04:25 04:25 04:35 WBC MCHC Neutrophils # Lymphocytes # PT INR APTT ABG pH 7.34 L ABG pCO2 55 H ABG pO2 77 L ABG HCO3 30 H ABG Total CO2 31 H ABG O2 Saturation VBG pH VBG HCO3 Chloride Carbon Dioxide BUN 26 H Creatinine Glucose 151 H POC Glucose (mg/dL) Hemoglobin A1c 6.2 H Calcium AST ALT Troponin I Total Protein Albumin Triglycerides HDL Cholesterol Ur Specific [place] Urine Protein Urine Glucose (UA) Urine Ketones Urine Blood Urine RBC Amorphous Sediment Hyaline Casts Urine Mucus 08/17/19 08/17/19 06:15 11:49 WBC MCHC Neutrophils # Lymphocytes # PT INR APTT ABG pH ABG pCO2 ABG pO2 ABG HCO3 ABG Total CO2 ABG O2 Saturation VBG pH VBG HCO3 Chloride Carbon Dioxide BUN Creatinine Glucose POC Glucose (mg/dL) 137 H 157 H Hemoglobin A1c Calcium AST ALT Troponin I Total Protein Albumin Triglycerides HDL Cholesterol Ur Specific [place] Urine Protein Urine Glucose (UA) Urine Ketones Urine Blood Urine RBC Amorphous Sediment Hyaline Casts Urine Mucus Assessment and Plan Assessment: * Status post cardiac arrest with prolonged down time. Patient probably has anoxic encephalopathy. Patient is not showing meaningful response 60 hours post cardiac arrest. * Acute non-ST segment elevation [place]. Status post cardiac stenting recently. * History of pulmonary fibrosis. Plan: * Patient's EEG was performed, which was reviewed. It showed severe generalized slowing consistent with anoxic or TME. Clinical correlation recommended. * Suggested decrease sedation gradually, and try to wean off sedation, if possible, to assess for underlying neurological status. * Discussed with patient's family in detail twice, once in the 11 am after seeing the patient and the again at 7:30 pm after EEG results were available. All of their questions were answered. * We will follow clinically. *
--- NOTE | 2019-08-17 12:47 | P.PN ---
Subjective Progress Note Date: 08/17/19 This is a 74-year-old male patient of Dr. Loving, Dr. Sanderson patient with past medical history of idiopathic pulmonary fibrosis, prostate cancer under the care of Dr. Huynh, hyperlipidemia, polycythemia, recurrent depression, remote history of tobacco use quit 2 years ago. Patient has had several episodes of syncope not well explained and underwent MRI of the brain and blood work and had a recent hospitalization discharged from the hospital yesterday after he was admitted with syncope. At that point he was ruled in for acute coronary syndrome and underwent catheterization and stenting of the left anterior descending artery. Also the patient underwent at the same admission, an echocardiogram which revealed normal LV function with mild aortic stenosis. He underwent also a loop recorder before he was discharged home. Patient was brought into the emergency center as he was found unresponsive by his family at home. Family did CPR and called for an ambulance. Patient was found to be in PEA and brought back into atrial fibrillation with RVR and normal blood pressure when the ambulance arrived to the emergency room. Down time was a total of 30 minutes. Patient underwent emergent heart catheterization with Dr. Abel that revealed chronic total occlusion of the RCA which fills by collateral from the left coronary system, severe disease involving the ostial left main coronary artery, intermediate to severe disease involving the left circumflex, and patent stents in the proximal left anterior descending artery. The chest x-ray showed findings consistent was congestive heart failure. Patient was admitted to the intensive care unit. On presentation, initial WBC count was 13 out of 18, pH 6.95, pCO2 51, pO2 123, bicarb 11, total CO2 13. Blood sugar 342. Troponins initially 0.110 and repeat 12.6. Triglycerides 239, cholesterol 170, LDL 88, HDL 34. Urinalysis cloudy, blood moderate. Patient was intubated and placed on mechanical ventilation with tidal volume 500, FiO2 70, PEEP. He also required norepinephrine for cardiogenic shock. CAT scan of the brain showed no acute findings. Ultrasound of bilateral lower extremities negative for DVT. 08/16: Yesterday, patient returned to the [facility] and underwent percutaneous coronary angiogram gravity with stenting of the ostial left main coronary artery that had a 70% stenosis reduced to 0%. Patient remains in intensive care unit intubated on mechanical ventilation with tidal volume 500, FiO2 50, PEEP of 8. Plan for patient to be placed on a sedation holiday today. Neurologic status is not known at this time multiple family members are at the bedside and have been updated. Neurology will be available on Saturday and EEG ordered. He has been afebrile, heart rate in the 80s, blood pressure 147/79. Repeat lab work reveals white count of 11.5, hemoglobin 14.3, platelet count 202. Creatinine 0.89. Blood sugars run between 136 and 162. Sputum culture is in progress. Chest x- ray this morning shows worsening changes of heart failure. Dr. Sanderson is ordered additional Lasix. Plan 08/17: Patient remains intubated and on mechanical ventilation with tidal volume 450, FiO2 50, PEEP 8. EEG was completed this morning. Patient has been seen by neurology. Patient is suspected of having anoxic encephalopathy. The patient is currently on propofol and fentanyl which the fentanyl is to be stopped. And wean down propofol. Patient has been afebrile, heart rate 67, blood pressure 150/80. WBC 12.5, creatinine 0.93. Blood sugars running between 137 and 151. Review of Systems ROS unobtainable: due to endotracheal tube Objective - Vital Signs Vital signs: Vital Signs Temp 98.6 F 08/17/19 08:00 Pulse 63 08/17/19 10:00 Resp 22 08/17/19 10:00 BP 119/65 08/17/19 10:00 Pulse Ox 94 L 08/17/19 10:00 Intake & Output 08/16/19 08/17/19 08/17/19 18:59 06:59 18:59 Intake Total 0059.803 0008.507 366.297 Output Total 1245 1480 195 Balance -178.330 -445.493 171.297 Weight 83.7 kg 85.8 kg Intake: Intake, IV Titration 1036.670 389.507 111.297 Amount Propofol 1,000 mg In 140.485 291.255 5.148 Empty Bag 1 bag @ Titrate IV .Q0M [facility] Rx#: [id number] Sodium Chloride 0.9% 1, 60 000 ml @ 20 mls/hr IV . Q24H [facility] Rx#:[id number] Sodium Chloride 0.9% 1, 825 000 ml @ 75 mls/hr IV . [id number] [facility] Rx#:[id number] fentaNYL (PF) 1,000 mcg 71.185 98.252 46.149 In Sodium Chloride 0.9% 80 ml @ 1 MCG/KG/HR 8.12 mls/hr IV .[id number] [facility] Rx #:[id number] Tube Feeding 30 555 225 Other 90 30 Output: Urine 1245 1480 195 Other: Voiding Method Indwelling Catheter Indwelling Catheter ABP, PAP, CO, CI - Last Documented Arterial Blood Pressure 114/63 - Exam Gen: This is a 74-year-old male. Patient is intubated and on mechanical ventilation. Patient appears to be comfortable and in no acute d istress. Family members updated at bedside. HEENT: Head is atraumatic, normocephalic. Pupils equal, round. Sclerae is anicteric. NECK: Supple. No JVD. No lymphadenopathy. No thyromegaly. LUNGS: Scattered wheezes or rhonchi. No intercostal retractions. HEART: Regular rate and rhythm. Systolic murmur. ABDOMEN: Soft. Bowel sounds are present. No masses. No tenderness. EXTREMITIES: No pedal edema. No calf tenderness. NEUROLOGICAL: Patient is sedated. - Labs CBC & Chem 7: 08/17/19 04:25 08/17/19 04:25 Labs: Abnormal Lab Results - Last 24 Hours (Table) 08/16/19 08/16/19 08/17/19 Range/Units 11:33 18:03 00:08 WBC (3.8-10.6) k/uL Neutrophils # (1.3-7.7) k/uL Lymphocytes # (1.0-4.8) k/uL ABG pH (7.35-7.45) ABG pCO2 (35-45) mmHg ABG pO2 (83-108) mmHg ABG HCO3 (21-25) mmol/L ABG Total CO2 (19-24) mmol/L BUN (9-20) mg/dL Glucose (74-99) mg/dL POC Glucose (mg/dL) 143 H 146 H 144 H (75-99) mg/dL 08/17/19 08/17/19 08/17/19 Range/Units 04:25 04:25 04:35 WBC 12.5 H (3.8-10.6) k/uL Neutrophils # 11.2 H (1.3-7.7) k/uL Lymphocytes # 0.5 L (1.0-4.8) k/uL ABG pH 7.34 L (7.35-7.45) ABG pCO2 55 H (35-45) mmHg ABG pO2 77 L (83-108) mmHg ABG HCO3 30 H (21-25) mmol/L ABG Total CO2 31 H (19-24) mmol/L BUN 26 H (9-20) mg/dL Glucose 151 H (74-99) mg/dL POC Glucose (mg/dL) (75-99) mg/dL 08/17/19 Range/Units 06:15 WBC (3.8-10.6) k/uL Neutrophils # (1.3-7.7) k/uL Lymphocytes # (1.0-4.8) k/uL ABG pH (7.35-7.45) ABG pCO2 (35-45) mmHg ABG pO2 (83-108) mmHg ABG HCO3 (21-25) mmol/L ABG Total CO2 (19-24) mmol/L BUN (9-20) mg/dL Glucose (74-99) mg/dL POC Glucose (mg/dL) 137 H (75-99) mg/dL Microbiology - Last 24 Hours (Table) 08/15/19 01:31 Gram Stain - Final Sputum Sputum Culture - Final Assessment and Plan Plan: 1. Cardiopulmonary arrest possibly related to acute non-ST WI status post emergent heart catheterization, PTCA and stenting of the ostial left main coronary artery. CAT scan of the brain negative, lower extremity Dopplers ruled out DVT. Consult with cardiology appreciated. Echocardiogram ordered. Continue aspirin, Plavix 75 mg daily. 2. Recent hospitalization for non-ST elevated myocardial infarction status post stenting of the LAD. 3. Acute hypoxic respiratory failure secondary to cardiopulmonary arrest, intubated and on mechanical ventilation. Consult with Dr. Sanderson appreciated. Patient is status post Lasix 40 mg IV push 1, patient started on same Medrol 40 mg every 6 hours. 4. Cardiogenic shock requiring vasopressor. 5. Pulmonary fibrosis. 6. Polycythemia most likely secondary to obstructive sleep apnea. 7. Prostate cancer, under the care of Dr. Huynh. 8. Hypertension. 9. Hyperlipidemia. 10. Mild aortic stenosis. 11. Peripheral neuropathy. 12. Benign prostatic hypertrophy. 13. Generalized anxiety disorder. Patient is normally on Xanax and Celexa. 14. DVT prophylaxis. 15. GI prophylaxis. Protonix IV. 16. Anoxic encephalopathy. Neurology consult appreciated. EEG has been done this morning. Sedation to be decreased. CODE STATUS: Full code Prognosis: Guarded Discharge plan: To be determined Impression and plan of care have been directed as dictated by the signing physician. Jodee Joya nurse practitioner acting as scribe for signing physician.
--- NOTE | 2019-08-17 12:49 | PN ---
PROGRESS NOTE DATE OF SERVICE: 08/16/2019 This patient is status post cardiac arrest. The patient underwent a stent to the left main coronary artery yesterday. The patient is currently sedated and remains unresponsive. Pupils are dilated with no significant reaction. The patient remains hemodynamically stable. He has been on a small basal dose of Levophed. Blood pressure is 106/61 mmHg. First and second heart sounds are heard. Lungs examination revealed a few scattered rales. Patient is clinically stable. Chest x-ray suggestive of mild fluid overload. Underlying pulmonary fibrosis cannot be entirely excluded. PLAN: Continue the current treatment. Patient will be given one dose of Lasix IV. MMODL / IJN: [id number] /
--- NOTE | 2019-08-17 12:54 | PN ---
PROGRESS NOTE DATE OF SERVICE: 08/17/2019 This patient's electronic medical records as well as clinical panels and hemodynamics over the last 24 hours reviewed. The patient remains hemodynamically stable. However, the patient needed to be sedated again because of the unsynchronized respiration. The patient is undergoing EEG today. The patient's urine output remains fairly descent. Creatinine is stable. Blood pressure is 119/65 mmHg. First and second heart sounds are normal. Lungs reveal a few basal rales. ASSESSMENT AND PLAN: Patient remains stable cardiac tripp. Await the results of the EEG and neurology consult. MMODL / IJN: [id number] /
--- NOTE | 2019-08-17 16:37 | EEG ---
ELECTROENCEPHALOGRAM REPORT DATE OF SERVICE: 08/17/2019. PREAMBLE: This is a 74 year old male with cardiac arrest. EEG FINDINGS: A routine 21 channel awake digital EEG recording was accomplished utilizing the 10/20 international system with bipolar and referential montages. The recording starts and continues with presence of diffuse moderate amplitude 1-2 hertz delta intermixed with very low amplitude suppressed and generalized electrocerebral activity. Background does not seem to be reactive to eye opening and closing. Photic driving response was not seen. Some left temporal sharp appearing waves were seen, although does not appear clearly epileptiform. Different stages of sleep were not seen. IMPRESSION: This is an abnormal EEG due to background slowing of severe degree. This is suggestive of generalized cerebral dysfunction, as can be seen with severe toxic metabolic or anoxic encephalopathy. Clinical correlation and followup EEG recommended, if clinically indicated. RADHA / MARIANNA: [id number] / MTDD
[2019-08-17 16:44] LABS: Glucose,Whole Blood 151 mg/dL (75-99)
[2019-08-17 23:50] LABS: Glucose,Whole Blood 163 mg/dL (75-99)
[2019-08-18] MEDS: methylPREDNISolone SOD SUCCI 40 MG/ML 1 ML VIAL IV SCH ×2 (00:13→06:59)
[2019-08-18] MEDS: HEPARIN SODIUM,PORCINE 5,000 UNIT/ML 1 ML VIAL SQ SCH ×3 (00:13→16:49)
[2019-08-18] MEDS: INSULIN ASPART (NovoLOG) 100 UNIT/ML VIAL SQ SCH ×4 (00:41→16:49)
[2019-08-18 05:24] LABS: ABG Base Excess 10.5 mmol/L; ABG HCO3 34 mmol/L (21-25); ABG Oxygen Saturation 98.3 % (94-97); ABG PCO2 50 mmHg (35-45); ABG PH 7.45 (7.35-7.45); ABG PO2 107 mmHg (83-108); ABG TCO2 36 mmol/L (19-24); Allen Test Performed? Yes
[2019-08-18 05:38] LABS: Basophils % (A) 0 %; Eosinophils # (A) 0.1 k/uL (0-0.7); Eosinophils % (A) 1 %; HCT 42.3 % (39.0-53.0); HGB 14.1 gm/dL (13.0-17.5); Lymphocytes # (A) 0.7 k/uL (1.0-4.8); Lymphocytes % (A) 4 %; MCH 29.9 pg (25.0-35.0); MCHC 33.3 g/dL (31.0-37.0); MCV 89.6 fL (80.0-100.0); Monocytes # (A) 0.9 k/uL (0-1.0); Monocytes % (A) 5 %; Neutrophils # (A) 14.1 k/uL (1.3-7.7); Neutrophils % (A) 89 %; Platelet Count 231 k/uL (150-450); RBC 4.72 m/uL (4.30-5.90); RDW 13.9 % (11.5-15.5); WBC 15.9 k/uL (3.8-10.6)
[2019-08-18 05:56] LABS: African American GFR (CKD) >90 (>60 ml/min/1.73 sqM); Anion Gap 4 mmol/L; Blood Urea Nitrogen 39 mg/dL (9-20); Carbon Dioxide 35 mmol/L (22-30); Chloride 103 mmol/L (98-107); Glucose 135 mg/dL (74-99); Non-African American GFR(CKD) 85 (>60 ml/min/1.73 sqM); Sodium 142 mmol/L (137-145)
--- NOTE | 2019-08-18 08:21 | XR ---
EXAMINATION TYPE: XR chest 1V portable DATE OF EXAM: 08/18/2019 COMPARISON: Prior chest x-ray 08/17/2019, chest CT 03/25/2018 HISTORY: Intubated TECHNIQUE: Single frontal view of the chest is obtained. FINDINGS: Endotracheal tube and NG tube are overlying appropriate positions. Patient is rotated. Jyoti tral venous catheter the right jugular approach shows the distal tip in the right atrium. There is no pneumothorax. There are overlying cardiac leads. Interstitium is increased. Heart size is stable and may be enlarged or show an accentuated appearance due to rotation. No evident pleural effusion. Cent ral vascularity appears prominently. There is an overlying loop recorder at the level of the heart. A lisandra is dense. Patchy density present at the left lung base. IMPRESSION: There is underlying interstitial lung disease, correlate for interstitial and pulmonary edema or possible pneumonia. Additional findings above.
[2019-08-18] MEDS: IPRATROPIUM-ALBUTEROL 3 ML NEB INHALATION SCH ×4 (08:28→19:44)
[2019-08-18] MEDS: CLOPIDOGREL 75 MG TAB PO SCH (09:05)
[2019-08-18] MEDS: ASPIRIN 325 MG TAB PO SCH (09:05)
[2019-08-18] MEDS: FUROSEMIDE 10 MG/ML 4 ML VIAL IV SCH ×2 (09:05→21:03)
[2019-08-18] MEDS: CHLORHEXIDINE GLUCONATE 15 ML CUP MUCOUS MEM SCH ×2 (09:05→21:03)
[2019-08-18] MEDS: PANTOPRAZOLE 40 MG/10 ML VIAL IV SCH (09:06)
--- NOTE | 2019-08-18 09:40 | PN ---
PROGRESS NOTE DATE OF SERVICE: 08/18/2019 Critical care time 35 minutes. This is a 74-year-old gentleman who was admitted to the hospital on August 14 through the emergency department. He sustained a cardiopulmonary arrest and had a significant cardiopulmonary resuscitation lasting up to about 30 minutes before he had return of spontaneous circulation. Again, he unfortunately sustained a myocardial infarction. The patient was thought to have anoxic brain injury. He was seen by Neurology yesterday. I appreciate Dr. Kendall's note. An EEG was also done which showed diffuse slowing consistent with anoxic/metabolic encephalopathy. Anyway, Dr. Kendall thought the patient's overall prognosis was poor given his prolonged resuscitation time. The patient does have a history of recent left main stent placed as well as an LAD stent placement. He does have underlying pulmonary fibrosis and sees my partner, Dr. Sanderson for that. He remains on the ventilator. Yesterday, the goal was to decreased or stop the fentanyl and reduce the propofol as much as possible. Currently, he is on the volume assist-control mode rate of 22, tidal volume 450, FiO2 of 50%, PEEP of 8. His gases show a pO2 of 107, a pCO2 of 50, and a pH of 7.45. His stacking breath is mildly dyssynchronous with the ventilator. He is getting saline IV at 20 mL an hour Diprivan at 15 mcg/kg per minute and Vital 1.2 at 60 with a goal of 60 mL an hour. I have asked the respiratory therapist, Valeriy, to convert him from the volume assist-control to VC plus or pressure regulated volume control ventilation with a targeted tidal volume of 450 and an inspiratory time of 0.8 seconds. Will see if he is that he is better with that modality than volume assist-control. He also has a history of interstitial lung disease/pulmonary fibrosis as mentioned above, benign essential hypertension, aortic stenosis, BPH, and systolic heart failure. Current vital signs are reviewed, his temperature is 99.5, heart rate 107, respiratory rate 25, blood pressure 137/68 mean 91, saturations are mid 90s on 50% and 8 of PEEP. Appears in no acute distress, although he is double stacking occasionally. He is poorly responsive/unresponsive given the fact that he is on propofol. HEENT: Examination is grossly unremarkable. There is an orally placed endotracheal tube and NG tube. NECK: Supple. Full range of motion. No adenopathy. Neck veins are flat. CARDIOVASCULAR: Examination reveals regular rhythm and rate. Heart rate 82 beats per minute. S1, S2 normal. Heart sounds are distant. LUNGS: Reveal diffuse bibasilar crackles. Breath sounds equal. ABDOMEN: Soft. Bowel sounds are heard. EXTREMITIES: Intact. Minimal edema. SKIN: Without rash. NEUROLOGIC: Examination difficult to assess given the fact he is still on propofol but his mental status off sedation when checked on Saturday was very poor. LAB DATA: Reviewed. White count 15.9, hemoglobin 14.1, hematocrit 42.3, platelet count 231,000, blood gases have been noted. Sodium 142, potassium 4, chloride is 103, CO2 is 35, anion gap is 4. BUN and creatinine were 39 and 0.89. Calcium 9.0. Microbiologic studies are negative. Chest x-ray shows a properly placed endotracheal tube. This chest x-ray is consistent with pulmonary fibrosis. There was diffuse interstitial changes throughout. Some greater degrees of consolidation are noted in the left lower lobe area. MEDICATIONS: Reviewed. He is currently on aspirin, chlorhexidine, Plavix, Lasix, subcu heparin, insulin, updrafts, Solu-Medrol, Narcan, Protonix, propofol and a basic IV as well as tube feeds. ASSESSMENT: 1. Status post cardiopulmonary arrest, secondary to acute non ST-segment elevation myocardial infarction, with cardiopulmonary resuscitation and eventual return of spontaneous circulation after about 30 minutes. 2. Suspected anoxic brain injury, confirmed by Neurology and EEG. 3. Acute on chronic hypoxemic respiratory failure secondary to systolic congestive heart failure as well as underlying severe pulmonary fibrosis. 4. Recent hospitalization for non ST-segment elevation myocardial infarction, status post stenting of the LAD. 5. History of long-standing pulmonary fibrosis. 6. History of cardiogenic shock, ischemic cardiomyopathy. 7. Benign essential hypertension. 8. Mild aortic stenosis. 9. Benign prostatic hypertrophy. 10.Anoxic brain injury. 11.Recent stenting of the left main coronary artery on August 15, 2019. PLAN: Overall, the patient's prognosis is poor. I did have a chance to speak to the patient's son and sister yesterday. They will sort of waiting for input by Neurology. Neurology did see the patient. EEG showed diffuse slowing consistent with anoxic brain injury. In addition, the patient is in the neurology consult was consistent with suspected significant anoxic brain injury given his prolonged resuscitation and downtime. The patient's fentanyl has been discontinued. The propofol has been weaned down to 15 mcg/kg per minute. We are going to attempt to use pressure regulated volume control or VC plus ventilation. Will go for a targeted tidal volume of 450 and an inspiratory time of 0.8 seconds. Additional recommendations and suggestions are forthcoming. I will have further discussions with the family members about withdrawal of life support. They were sort of leaning that way yesterday. Additional recommendations are forthcoming. CRITICAL CARE TIME: 35 minutes. MMODL / IJN: [id number] /
[2019-08-18] MEDS: PROPOFOL 1,000 MG in EMPTY BAG 1 BAG IV SCH ×2 (09:49→16:51)
--- NOTE | 2019-08-18 11:03 | PN ---
PROGRESS NOTE This patient's clinical panels and medical records over the last 24 hours reviewed. The patient's condition discussed with the nurse as well as the family member. The patient remains intubated. Sedation is gradually being weaned off. Neurology consultation is noted. EEG is suggestive of severe anoxic encephalopathy. There is no improvement in patient's neurological status. Patient remains otherwise stable cardiac tripp. Blood pressure is 137/68 mmHg, heart rate is 82 per minute. First and second heart sounds are heard. Lungs examination revealed bilateral few basal rhonchi. Chest x-ray suggestive of pulmonary fibrosis. ASSESSMENT AND PLAN: Status post cardiac arrest. The findings of loop recorder were reviewed with the family members. It did show evidence of nonsustained ventricular tachycardia and ventricular tachycardia. When the EMS arrived, the patient was in [facility]. FINAL IMPRESSION: 1. Status post cardiac arrest secondary to acute myocardial infarction. 2. Severe anoxic encephalopathy. The patient's prognosis remains poor. Family fully understands. They are planning to withdraw the life support tomorrow. MMODL / IJN: [id number] /
--- NOTE | 2019-08-18 11:33 | P.PN ---
Subjective Progress Note Date: 08/18/19 No change. Patient currently on propofol 20 g. According to the nursing report, when propofol was decreased to 50 g, patient became tachypneic, but no meaningful response. Continues to be comatose. Objective - Vital Signs Vital signs: Vital Signs Temp 99.5 F 08/18/19 08:00 Pulse 89 08/18/19 11:26 Resp 21 08/18/19 11:00 BP 135/72 08/18/19 11:00 Pulse Ox 96 08/18/19 11:00 Intake & Output 08/17/19 08/18/19 08/18/19 18:59 06:59 18:59 Intake Total 1145.019 290 70 Output Total 845 1253 1000 Balance 300.019 -963 -930 Weight 86.4 kg Intake: IV 70 70 0.9 70 70 Intake, IV Titration 350.019 160 Amount Propofol 1,000 mg In 83.870 100 Empty Bag 1 bag @ Titrate IV .Q0M [facility] Rx#: [id number] Sodium Chloride 0.9% 1, 220 60 000 ml @ 20 mls/hr IV . Q24H [facility] Rx#:[id number] fentaNYL (PF) 1,000 mcg 46.149 In Sodium Chloride 0.9% 80 ml @ 1 MCG/KG/HR 8.12 mls/hr IV .[id number] [facility] Rx #:[id number] Tube Feeding 705 60 Other 90 Output: Urine 845 1253 1000 Other: Voiding Method Indwelling Catheter Indwelling Catheter Indwelling Catheter ABP, PAP, CO, CI - Last Documented Arterial Blood Pressure 114/63 - Exam Comatose, no change since yesterday. - Labs CBC & Chem 7: 08/18/19 05:30 08/18/19 05:30 Labs: Abnormal Lab Results - Last 24 Hours (Table) 08/17/19 08/17/19 08/17/19 Range/Units 04:25 11:49 16:43 WBC (3.8-10.6) k/uL Neutrophils # (1.3-7.7) k/uL Lymphocytes # (1.0-4.8) k/uL ABG pCO2 (35-45) mmHg ABG HCO3 (21-25) mmol/L ABG Total CO2 (19-24) mmol/L ABG O2 Saturation (94-97) % Carbon Dioxide (22-30) mmol/L BUN (9-20) mg/dL Glucose (74-99) mg/dL POC Glucose (mg/dL) 157 H 151 H (75-99) mg/dL Hemoglobin A1c 6.2 H (4.0-6.0) % 08/17/19 08/18/19 08/18/19 Range/Units 23:49 05:18 05:30 WBC 15.9 H (3.8-10.6) k/uL Neutrophils # 14.1 H (1.3-7.7) k/uL Lymphocytes # 0.7 L (1.0-4.8) k/uL ABG pCO2 50 H (35-45) mmHg ABG HCO3 34 H (21-25) mmol/L ABG Total CO2 36 H (19-24) mmol/L ABG O2 Saturation 98.3 H (94-97) % Carbon Dioxide (22-30) mmol/L BUN (9-20) mg/dL Glucose (74-99) mg/dL POC Glucose (mg/dL) 163 H (75-99) mg/dL Hemoglobin A1c (4.0-6.0) % 08/18/19 Range/Units 05:30 WBC (3.8-10.6) k/uL Neutrophils # (1.3-7.7) k/uL Lymphocytes # (1.0-4.8) k/uL ABG pCO2 (35-45) mmHg ABG HCO3 (21-25) mmol/L ABG Total CO2 (19-24) mmol/L ABG O2 Saturation (94-97) % Carbon Dioxide 35 H (22-30) mmol/L BUN 39 H (9-20) mg/dL Glucose 135 H (74-99) mg/dL POC Glucose (mg/dL) (75-99) mg/dL Hemoglobin A1c (4.0-6.0) % Microbiology - Last 24 Hours (Table) 08/15/19 01:31 Gram Stain - Final Sputum Sputum Culture - Final Assessment and Plan Assessment: * Status post cardiac arrest with prolonged down time. Patient probably has severe anoxic encephalopathy. Patient is not showing meaningful response >72 hours post cardiac arrest. * Cardiac arrhythmia. * Acute non-ST segment elevation NE. Status post cardiac stenting recently. * History of pulmonary fibrosis. Plan: * Patient's EEG showed severe generalized slowing consistent with anoxic or TME. Clinical correlation recommended. * Patient showing no signs of clinical improvement. Overall prognosis for meaningful recovery appears very poor. * Patient's family has decided comfort care and terminal weaning tomorrow. * Discussed with family in detail.
[2019-08-18 11:40] LABS: Glucose,Whole Blood 159 mg/dL (75-99)
--- NOTE | 2019-08-18 13:30 | P.PN ---
Subjective Progress Note Date: 08/18/19 This is a 74-year-old male patient of Dr. Loving, Dr. Sanderson patient with past medical history of idiopathic pulmonary fibrosis, prostate cancer under the care of Dr. Huynh, hyperlipidemia, polycythemia, recurrent depression, remote history of tobacco use quit 2 years ago. Patient has had several episodes of syncope not well explained and underwent MRI of the brain and blood work and had a recent hospitalization discharged from the hospital yesterday after he was admitted with syncope. At that point he was ruled in for acute coronary syndrome and underwent catheterization and stenting of the left anterior descending artery. Also the patient underwent at the same admission, an echocardiogram which revealed normal LV function with mild aortic stenosis. He underwent also a loop recorder before he was discharged home. Patient was brought into the emergency center as he was found unresponsive by his family at home. Family did CPR and called for an ambulance. Patient was found to be in PEA and brought back into atrial fibrillation with RVR and normal blood pressure when the ambulance arrived to the emergency room. Down time was a total of 30 minutes. Patient underwent emergent heart catheterization with Dr. Abel that revealed chronic total occlusion of the RCA which fills by collateral from the left coronary system, severe disease involving the ostial left main coronary artery, intermediate to severe disease involving the left circumflex, and patent stents in the proximal left anterior descending artery. The chest x-ray showed findings consistent was congestive heart failure. Patient was admitted to the intensive care unit. On presentation, initial WBC count was 13 out of 18, pH 6.95, pCO2 51, pO2 123, bicarb 11, total CO2 13. Blood sugar 342. Troponins initially 0.110 and repeat 12.6. Triglycerides 239, cholesterol 170, LDL 88, HDL 34. Urinalysis cloudy, blood moderate. Patient was intubated and placed on mechanical ventilation with tidal volume 500, FiO2 70, PEEP. He also required norepinephrine for cardiogenic shock. CAT scan of the brain showed no acute findings. Ultrasound of bilateral lower extremities negative for DVT. 08/16: Yesterday, patient returned to the [facility] and underwent percutaneous coronary angiogram gravity with stenting of the ostial left main coronary artery that had a 70% stenosis reduced to 0%. Patient remains in intensive care unit intubated on mechanical ventilation with tidal volume 500, FiO2 50, PEEP of 8. Plan for patient to be placed on a sedation holiday today. Neurologic status is not known at this time multiple family members are at the bedside and have been updated. Neurology will be available on Saturday and EEG ordered. He has been afebrile, heart rate in the 80s, blood pressure 147/79. Repeat lab work reveals white count of 11.5, hemoglobin 14.3, platelet count 202. Creatinine 0.89. Blood sugars run between 136 and 162. Sputum culture is in progress. Chest x- ray this morning shows worsening changes of heart failure. Dr. Sanderson is ordered additional Lasix. Plan 08/17: Patient remains intubated and on mechanical ventilation with tidal volume 450, FiO2 50, PEEP 8. EEG was completed this morning. Patient has been seen by neurology. Patient is suspected of having anoxic encephalopathy. The patient is currently on propofol and fentanyl which the fentanyl is to be stopped. And wean down propofol. Patient has been afebrile, heart rate 67, blood pressure 150/80. WBC 12.5, creatinine 0.93. Blood sugars running between 137 and 151. 08/18: Patient has been evaluated by neurology and EEG and patient has suffered from anoxic encephalopathy. This has been discussed in detail with the patient's family. They are planning to take the patient off the ventilator tomorrow. They are waiting for some family members to arrive. Patient has been changed to no CODE STATUS. Patient remains intubated and on mechanical ventilation. He has been afebrile, blood pressure 156/82, heart rate 84. Repeat lab work reveals WBC 15.9, creatinine 0.89. Review of Systems ROS unobtainable: due to endotracheal tube Objective - Vital Signs Vital signs: Vital Signs Temp 99.5 F 08/18/19 08:00 Pulse 82 08/18/19 08:57 Resp 23 08/18/19 08:00 BP 137/68 08/18/19 08:00 Pulse Ox 95 08/18/19 07:00 Intake & Output 08/17/19 08/18/19 08/18/19 18:59 06:59 18:59 Intake Total 1145.019 290 70 Output Total 845 1253 1000 Balance 300.019 -963 -930 Weight 86.4 kg Intake: IV 70 70 0.9 70 70 Intake, IV Titration 350.019 160 Amount Propofol 1,000 mg In 83.870 100 Empty Bag 1 bag @ Titrate IV .Q0M [facility] Rx#: [id number] Sodium Chloride 0.9% 1, 220 60 000 ml @ 20 mls/hr IV . Q24H [facility] Rx#:[id number] fentaNYL (PF) 1,000 mcg 46.149 In Sodium Chloride 0.9% 80 ml @ 1 MCG/KG/HR 8.12 mls/hr IV .[id number] [facility] Rx #:[id number] Tube Feeding 705 60 Other 90 Output: Urine 845 1253 1000 Other: Voiding Method Indwelling Catheter Indwelling Catheter Indwelling Catheter ABP, PAP, CO, CI - Last Documented Arterial Blood Pressure 114/63 - Exam Gen: This is a 74-year-old male. Patient is intubated and on mechanical ventilation. Patient appears to be comfortable and in no acute distress. Family members updated at bedside. They have agreed on plan for terminal extubation tomorrow. HEENT: Head is atraumatic, normocephalic. Pupils equal, round. Sclerae is anicteric. NECK: Supple. No JVD. No lymphadenopathy. No thyromegaly. LUNGS: Scattered wheezes or rhonchi. No intercostal retractions. HEART: Regular rate and rhythm. Systolic murmur. ABDOMEN: Soft. Bowel sounds are present. No masses. No tenderness. EXTREMITIES: No pedal edema. No calf tenderness. NEUROLOGICAL: Patient is sedated. - Labs CBC & Chem 7: 08/18/19 05:30 08/18/19 05:30 Labs: Abnormal Lab Results - Last 24 Hours (Table) 08/17/19 08/17/19 08/17/19 Range/Units 04:25 11:49 16:43 WBC (3.8-10.6) k/uL Neutrophils # (1.3-7.7) k/uL Lymphocytes # (1.0-4.8) k/uL ABG pCO2 (35-45) mmHg ABG HCO3 (21-25) mmol/L ABG Total CO2 (19-24) mmol/L ABG O2 Saturation (94-97) % Carbon Dioxide (22-30) mmol/L BUN (9-20) mg/dL Glucose (74-99) mg/dL POC Glucose (mg/dL) 157 H 151 H (75-99) mg/dL Hemoglobin A1c 6.2 H (4.0-6.0) % 08/17/19 08/18/19 08/18/19 Range/Units 23:49 05:18 05:30 WBC 15.9 H (3.8-10.6) k/uL Neutrophils # 14.1 H (1.3-7.7) k/uL Lymphocytes # 0.7 L (1.0-4.8) k/uL ABG pCO2 50 H (35-45) mmHg ABG HCO3 34 H (21-25) mmol/L ABG Total CO2 36 H (19-24) mmol/L ABG O2 Saturation 98.3 H (94-97) % Carbon Dioxide (22-30) mmol/L BUN (9-20) mg/dL Glucose (74-99) mg/dL POC Glucose (mg/dL) 163 H (75-99) mg/dL Hemoglobin A1c (4.0-6.0) % 08/18/19 Range/Units 05:30 WBC (3.8-10.6) k/uL Neutrophils # (1.3-7.7) k/uL Lymphocytes # (1.0-4.8) k/uL ABG pCO2 (35-45) mmHg ABG HCO3 (21-25) mmol/L ABG Total CO2 (19-24) mmol/L ABG O2 Saturation (94-97) % Carbon Dioxide 35 H (22-30) mmol/L BUN 39 H (9-20) mg/dL Glucose 135 H (74-99) mg/dL POC Glucose (mg/dL) (75-99) mg/dL Hemoglobin A1c (4.0-6.0) % Microbiology - Last 24 Hours (Table) 08/15/19 01:31 Gram Stain - Final Sputum Sputum Culture - Final Assessment and Plan Plan: 1. Cardiopulmonary arrest possibly related to acute non-ST [place] status post emergent heart catheterization, PTCA and stenting of the ostial left main coronary artery. CAT scan of the brain negative, lower extremity Dopplers ruled out DVT. Consult with cardiology appreciated. Continue aspirin, Plavix 75 mg daily. 2. Recent hospitalization for non-ST elevated myocardial infarction status post stenting of the LAD. 3. Acute hypoxic respiratory failure secondary to cardiopulmonary arrest, in tubated and on mechanical ventilation. Consult with Dr. Sanderson appreciated. Plan is for terminal extubation tomorrow. 4. Cardiogenic shock requiring vasopressor. 5. Pulmonary fibrosis. 6. Polycythemia most likely secondary to obstructive sleep apnea. 7. Prostate cancer, under the care of Dr. Huynh. 8. Hypertension. 9. Hyperlipidemia. 10. Mild aortic stenosis. 11. Peripheral neuropathy. 12. Benign prostatic hypertrophy. 13. Generalized anxiety disorder. Patient is normally on Xanax and Celexa. 14. DVT prophylaxis. 15. GI prophylaxis. Protonix IV. 16. Anoxic encephalopathy. Neurology consult appreciated. CODE STATUS: no code Prognosis: poor Impression and plan of care have been directed as dictated by the signing physician. Jodee Joya nurse practitioner acting as scribe for signing physician.
[2019-08-18] MEDS: SODIUM CHLORIDE 0.9% 1,000 ML IV SCH (17:53)
[2019-08-19] MEDS: HEPARIN SODIUM,PORCINE 5,000 UNIT/ML 1 ML VIAL SQ SCH ×2 (04:32→07:24)
[2019-08-19] MEDS: INSULIN ASPART (NovoLOG) 100 UNIT/ML VIAL SQ SCH (04:33)
[2019-08-19 05:37] VITALS: TEMP 98.7
[2019-08-19] MEDS: IPRATROPIUM-ALBUTEROL 3 ML NEB INHALATION SCH (08:06)
[2019-08-19] MEDS: CHLORHEXIDINE GLUCONATE 15 ML CUP MUCOUS MEM SCH (08:40)
[2019-08-19] MEDS: CLOPIDOGREL 75 MG TAB PO SCH (08:40)
[2019-08-19] MEDS: ASPIRIN 325 MG TAB PO SCH (08:40)
[2019-08-19] MEDS: PANTOPRAZOLE 40 MG/10 ML VIAL IV SCH (08:41)
[2019-08-19] MEDS: FUROSEMIDE 10 MG/ML 4 ML VIAL IV SCH (08:41)
[2019-08-19] MEDS ORDERED: MORPHINE SULFATE (100 MG/2 ML) 100 MG in SODIUM CHLORIDE 0.9% 100 ML IV SCH (08:45)
--- NOTE | 2019-08-19 10:05 | PN ---
PROGRESS NOTE PULMONARY/CRITICAL CARE PROGRESS NOTE: DATE OF SERVICE: 08/19/2019 CRITICAL CARE TIME: 33 minute This is a 74-year-old gentleman who was admitted to the hospital on August 14, 2019 through the emergency department. He sustained a cardiopulmonary arrest and had a significant cardiopulmonary resuscitation lasting about 30 minutes or so. He eventually had return of spontaneous circulation. He unfortunately sustained a myocardial infarction. The patient is thought to have significant anoxic brain injury as confirmed by his EEG and neurology consultation. The patient's mental status here has been very poor despite being off sedatives. His EEG showed diffuse slowing consistent with anoxic/metabolic encephalopathy. Anyway, the family has decided to withdraw him from life support. After much thought they felt like the patient was not improving and would be fruitless to go on. They also mentioned to me that the patient would not have wanted to be on life support for any prolonged period of time. He does have a history of underlying pulmonary fibrosis for which he sees my partner, Dr. Sanderson. In addition, on this admission, he had a stent placement in his LAD. Currently, he is on the VC plus mode also known as pressure regulated volume control. His targeted tidal volume is 450 and his inspiratory time is 0.8 seconds. His rate is 22, FiO2 of 50%, and PEEP of 8. Blood gases were not done this morning. Currently, he remains on saline at 20 mL an hour and Diprivan at 25 mcg/kg per minute. He seems reasonably stable on the ventilator. Current vital signs include a temperature of 98.7, heart rate 100, respiratory rate 22, blood pressure 161/91 mean 114, saturations are in the low 90s. Appears in no acute distress. He does have some sedation on board. He is synchronous with ventilator and seems to have been compatible with the VC plus mode of ventilation. HEENT: Examination is grossly unremarkable. Oral endotracheal tube and NG tube noted. NECK: Supple. Full range of motion. No adenopathy. CARDIOVASCULAR: Examination reveals regular rhythm and rate. Heart rate about 100 beats per minute. S1, S2 normal. No S3, S4, or murmur. Heart sounds are distant. LUNGS: Reveal diffuse bilateral crackles. No wheezes. No rhonchi. Breath sounds equal. ABDOMEN: Soft. No bowel sounds are noted. EXTREMITIES: Intact. Minimal edema. SKIN: Without rash. NEUROLOGIC: Examination is difficult to assess. He does not respond to verbal or painful stimuli. LAB DATA: These labs are from yesterday on 08/18. White count 15.9, hemoglobin 14.1, hematocrit 42.3, platelet count 331, 000. Blood gases from yesterday show a pO2 of 107, pCO2 of 50, pH of 0.45. Sodium 142, potassium 4, chloride is 103, CO2 is 35, anion gap is 4. BUN and creatinine were 39 and 0.89. Microbiology is currently negative. No x-ray done today. MEDICATIONS: Reviewed. I have discontinued a number of different medications. He remains on the propofol and morphine sulfate will be started. ASSESSMENT: 1. Status post cardiopulmonary arrest, secondary to acute non ST-segment elevation myocardial infarction, with prolonged cardiopulmonary resuscitation and eventual return of spontaneous circulation, after about 30 minutes. 2. Suspected severe anoxic brain injury, confirmed by neurology consultation and EEG. 3. Acute on chronic hypoxemic respiratory failure, secondary to systolic congestive heart failure as well as underlying severe pulmonary fibrosis. 4. Recent hospitalization for non ST-segment elevation myocardial infarction, status post stenting of the left anterior descending artery. 5. History of long-standing pulmonary fibrosis. 6. History of cardiogenic shock. 7. Ischemic cardiomyopathy. 8. Benign essential hypertension. 9. Mild aortic stenosis. 10.Benign prostatic hypertrophy. 11.Anoxic brain injury. 12.Recent stenting of the left main coronary artery on August 15, 2019. PLAN: The patient's overall prognosis remains extremely poor given his EEG findings and his neurologic examination. The patient will likely be made a comfort measures. The family still is deciding that but that is sort of what they are leaning towards. The patient's medications, x-rays, labs are all reviewed. Additional recommendations and suggestions are forthcoming. Prognosis is obviously extremely poor. Will continue to follow. The is kind enough to bring in the patient's pulmonary fibrosis medication called Esbriet. I will make sure that medication goes to a needy patient with a similar disease. CRITICAL CARE TIME: 33 minutes. PAXTONL / TUCKERN: [id number] /
[2019-08-19 10:24] VITALS: BP 146/93; PULSE 113
[2019-08-19 10:37] VITALS: RESP 20
[2019-08-19 10:54] VITALS: BMI 26.7
[2019-08-19] MEDS ORDERED: SCOPOLAMINE 1.5MG/72HR PATCH TRANSDERM STA (11:02)
[2019-08-19] MEDS ORDERED: ATROPINE OPHTH SOLN 1% 5ML BTL SUBLINGUAL PRN (11:04)
--- NOTE | 2019-08-19 12:30 | PN ---
PROGRESS NOTE This patient events over last 24 hours reviewed. The patient is now made comfort care and he is extubated. I again discussed with the family members that the patient sustained a non ST-segment elevation myocardial infarction and analysis of the loop recorder does show that the patient had an episode of ventricular tachycardia. At present, we will continue the patient on comfort care. RADHA / MARIANNA: [id number] /
--- NOTE | 2019-08-19 14:23 | P.DS ---
Providers Date of admission: 08/14/19 23:02 Expected date of discharge: 08/19/19 Attending physician: Jaylin Smith Consults: 08/14/19 23:02 Consult Physician Routine Consulting Provider: Kameron Plasencia Consult Reason/Comments: cpr Do you want consulting provider notified?: Yes Consult Physician Urgent Consulting Provider: Angelina Menjivar Consult Reason/Comments: cpr Do you want consulting provider notified?: Yes 08/15/19 13:22 Consult Physician Routine Consulting Provider: [facility] Consult Reason/Comments: Post Interventional patient Do you want consulting provider notified?: Already Contacted 08/16/19 10:00 Consult Physician Routine Consulting Provider: Jimmy Kendall Consult Reason/Comments: anoxic brain injury Do you want consulting provider notified?: Yes Primary care physician: Real Loving [facility] Course: This is a 74-year-old male patient of Dr. Loving, Dr. Sanderson patient with past medical history of idiopathic pulmonary fibrosis, prostate cancer under the care of Dr. Huynh, hyperlipidemia, polycythemia, recurrent depression, remote history of tobacco use quit 2 years ago. Patient has had several episodes of syncope not well explained and underwent MRI of the brain and blood work and had a recent hospitalization discharged from the hospital yesterday after he was admitted with syncope. At that point he was ruled in for acute coronary syndrome and underwent catheterization and stenting of the left anterior descending artery. Also the patient underwent at the same admission, an echocardiogram which revealed normal LV function with mild aortic stenosis. He underwent also a loop recorder before he was discharged home. Patient was brought into the emergency center as he was found unresponsive by his family at home. Family did CPR and called for an ambulance. Patient was found to be in PEA and brought back into atrial fibrillation with RVR and normal blood pressure when the ambulance arrived to the emergency room. Down time was a total of 30 minutes. Patient underwent emergent heart catheterization with Dr. Abel that revealed chronic total occlusion of the RCA which fills by collateral from the left coronary system, severe disease involving the ostial left main coronary artery, intermediate to severe disease involving the left circumflex, and patent stents in the proximal left anterior descending artery. The chest x-ray showed findings consistent was congestive heart failure. Patient was admitted to the intensive care unit. On presentation, initial WBC count was 13 out of 18, pH 6.95, pCO2 51, pO2 123, bicarb 11, total CO2 13. Blood sugar 342. Troponins initially 0.110 and repeat 12.6. Triglycerides 239, cholesterol 170, LDL 88, HDL 34. Urinalysis cloudy, blood moderate. Patient was intubated and placed on mechanical ventilation with tidal volume 500, FiO2 70, PEEP. He also required norepinephrine for cardiogenic shock. CAT scan of the brain showed no acute findings. Ultrasound of bilateral lower extremities negative for DVT. 08/16: Yesterday, patient returned to the [facility] and underwent percutaneous coronary angiogram gravity with stenting of the ostial left main coronary artery that had a 70% stenosis reduced to 0%. Patient remains in intensive care unit intubated on mechanical ventilation with tidal volume 500, FiO2 50, PEEP of 8. Plan for patient to be placed on a sedation holiday today. Neurologic status is not known at this time multiple family members are at the bedside and have been updated. Neurology will be available on Saturday and EEG ordered. He has been afebrile, heart rate in the 80s, blood pressure 147/79. Repeat lab work reveals white count of 11.5, hemoglobin 14.3, platelet count 202. Creatinine 0.89. Blood sugars run between 136 and 162. Sputum culture is in progress. Chest x- ray this morning shows worsening changes of heart failure. Dr. Sanderson is ordered additional Lasix. Plan 08/17: Patient remains intubated and on mechanical ventilation with tidal volume 450, FiO2 50, PEEP 8. EEG was completed this morning. Patient has been seen by neurology. Patient is suspected of having anoxic encephalopathy. The patient is currently on propofol and fentanyl which the fentanyl is to be stopped. And wean down propofol. Patient has been afebrile, heart rate 67, blood pressure 150/80. WBC 12.5, creatinine 0.93. Blood sugars running between 137 and 151. 08/18: Patient has been evaluated by neurology and EEG and patient has suffered from anoxic encephalopathy. This has been discussed in detail with the patien t's family. They are planning to take the patient off the ventilator tomorrow. They are waiting for some family members to arrive. Patient has been changed to no CODE STATUS. Patient remains intubated and on mechanical ventilation. He has been afebrile, blood pressure 156/82, heart rate 84. Repeat lab work reveals WBC 15.9, creatinine 0.89. 08/19: Patient was terminally weaned this morning and placed on comfort care. Patient around noon today. Please see nursing documentation for detail. Discharge diagnoses: 1. Cardiopulmonary arrest possibly related to acute non-ST AR status post emergent heart catheterization, PTCA and stenting of the ostial left main coronary artery--preliminary cause of . 2. Recent hospitalization for non-ST elevated myocardial infarction status post stenting of the LAD. 3. Acute hypoxic respiratory failure secondary to cardiopulmonary arrest, intubated and on mechanical ventilation. 4. Cardiogenic shock requiring vasopressor. 5. Pulmonary fibrosis. 6. Polycythemia most likely secondary to obstructive sleep apnea. 7. Prostate cancer, under the care of Dr. Huynh. 8. Hypertension. 9. Hyperlipidemia. 10. Mild aortic stenosis. 11. Peripheral neuropathy. 12. Benign prostatic hypertrophy. 13. Generalized anxiety disorder. Patient is normally on Xanax and Celexa. 14. Anoxic encephalopathy. Neurology consult appreciated. Impression and plan of care have been directed as dictated by the signing physician. Jodee Joya nurse practitioner acting as scribe for signing physician. Patient Condition at Discharge: Critical Plan - Discharge Summary Discharge Rx Participant: No New Discharge Prescriptions: No Action Citalopram Hydrobromide [CeleXA] 20 mg PO HS Gabapentin [Neurontin] 300 mg PO HS Melatonin 10 mg PO HS ALPRAZolam [Xanax] 1 mg PO HS Tamsulosin [Flomax] 0.8 mg PO HS Pirfenidone [Esbriet] 801 mg PO AC-TID C,E,Zinc,Copper 11/Aslxe3d/Lut [Ocuvite Adult 50 Plus Softgel] 1 cap PO HS Triamcinolone 0.1% Cream [Kenalog 0.1% Cream] 1 applicatio TOPICAL BID PRN PRN Reason: FACE/GROIN/ARMPITS Aspirin 81 mg PO DAILY chew Atorvastatin [Lipitor] 80 mg PO HS #90 tab Nitroglycerin Sl Tabs [Nitrostat] 0.4 mg SUBLINGUAL Q5M PRN #25 tab PRN Reason: Chest Pain Clopidogrel [Plavix] 75 mg PO DAILY #90 tab Acetaminophen Tab [Tylenol] 650 mg PO Q6HR PRN tab PRN Reason: Mild Pain Or Fever > 100.5 Discharge Medication List Citalopram Hydrobromide [CeleXA] 20 mg PO HS 11/07/17 [History] ALPRAZolam [Xanax] 1 mg PO HS 08/12/19 [History] C,E,Zinc,Copper 11/Hjupu4x/Lut [Ocuvite Adult 50 Plus Softgel] 1 cap PO HS 08/12/19 [History] Gabapentin [Neurontin] 300 mg PO HS 08/12/19 [History] Melatonin 10 mg PO HS 08/12/19 [History] Pirfenidone [Esbriet] 801 mg PO AC-TID 08/12/19 [History] Tamsulosin [Flomax] 0.8 mg PO HS 08/12/19 [History] Triamcinolone 0.1% Cream [Kenalog 0.1% Cream] 1 applicatio TOPICAL BID PRN 08/12/19 [History] Acetaminophen Tab [Tylenol] 650 mg PO Q6HR PRN tab 08/14/19 [Rx] Aspirin 81 mg PO DAILY chew 08/14/19 [Rx] Atorvastatin [Lipitor] 80 mg PO HS #90 tab 08/14/19 [Rx] Clopidogrel [Plavix] 75 mg PO DAILY #90 tab 08/14/19 [Rx] Nitroglycerin Sl Tabs [Nitrostat] 0.4 mg SUBLINGUAL Q5M PRN #25 tab 08/14/19 [Rx] Follow up Appointment(s)/Referral(s): Real Loving DO [Primary Care Provider] - 1-2 days - Preliminary Cause of Preliminary Cause of : Cardiopulmonary arrest possibly related to acute non-ST AR
--- NOTE | 2019-08-20 10:30 | CDI ---
Documentation Clarification Form Date: 08/20/19 From: Marline Ramirez Phone: If you have a question about this query, please contact Angella Kinney, [employer] Level Buyer at [phone] between 8am and 5pm. Admit Date: 08/14/19 Discharge Date: 08/19/19 Patient Name: Gigi Ventura Visit Number: [id number] ATTENTION: The Clinical Documentation Specialists (CDI) and [facility] Coding Staff appreciate your assistance in clarifying documentation. Please respond to the clarification below the line at the bottom and electronically sign. The CDI & [facility] Coding staff will review the response and follow-up if needed. Please note: Queries are made part of the Legal Health Record. If you have any questions, please contact the author of this message via ITS. Dear Dr. Jaylin Smith, Atrial Fibrillation is documented in the H&P, Dr Sanderson's consult, PNs by you and Dr Sanderson and DS. History/Risk Factors: recent NSTEMI, idopathic pulmonary fibrosis, prostate ca, hyperlipidema, polycythemia, recurrent depression, hx of smoking, s/p PTCA Clinical Indicators: Patient unresponsive, found in cardiac arrest, PEA and brought back into atrial fibrillation EKG/telemetry: Atrial fibrillation w RVR w premature ventricular or aberrantly conducted complexes Treatment: LHC w PTCA w stent Consults: Dr Abel, Dr Sanderson & Dr Kendall In your professional opinion, can you please clarify the type of Atrial Fibrillation, if known? Chronic (RVR) Permanent Paroxysmal Persistent (chronic/NOS/other) Other, please specify Unable to determine Paroxysmal atrial fibrillation MTDD
--- NOTE | 2019-08-20 10:49 | CDI ---
Documentation Clarification Form Date: 08/20/19 From: Marline Ramirez Phone: If you have a question about this query, please contact Angella Kinney, [place] at [phone] between 8am and 5pm. Admit Date: 08/14/19 Discharge Date: 08/19/19 Patient Name: Gigi Ventura Visit Number: [id number] ATTENTION: The Clinical Documentation Specialists (CDI) and [facility] Coding Staff appreciate your assistance in clarifying documentation. Please respond to the clarification below the line at the bottom and electronically sign. The CDI & [facility] Coding staff will review the response and follow-up if needed. Please note: Queries are made part of the Legal Health Record. If you have any questions, please contact the author of this message via ITS. Dear Dr. Jaylin Smith, Systolic CHF is documented in the ED note, H&P, Consults by Dr Abel & Dr Sanderson and several PNs. History/Risk Factors: recent NSTEMI, idopathic pulmonary fibrosis, prostate ca, hyperlipidema, polycythemia, recurrent depression, hx of smoking, s/p PTCA Clinical Indicators: Patient unresponsive, found in cardiac arrest, PEA and brought back into atrial fibrillation. Acute on chronic hypoxic respiratory failure secondary to systolic CHF and underlying interstitial lung disease/usual interstitial pneumonitis. Subsequent PNs state chest x-ray shows worsening changes in heart failure. VS/Pulse OX: P-58-130, BP-78/53-158/80, R-8-28, 66-100 BNP: 1450 Echocardiogram Results: left ventricular systolic function is mild-moderately impaired w EF between 40-45% Chest X Ray: 08/14-pulmonary edema significanlty increased compared to last exam. CXR: 08/16-Worsening changes of CHF Treatment: IV Lasix 40 mg Q 12HR In your professional opinion, can you please clarify the acuity of Systolic CHF if known? Acute Chronic Acute on Chronic Unable to Determine Other, please specify Acute systolic heart failure MTDD
== END 2019-08-19 11:56 | disposition expired | DRG 246 ==
LOC: EC 21:42 → 2SICU 23:02
PROVIDERS: ADMIT Internal Medicine; ATTEND Internal Medicine
PROC: 02HV33Z Insertion of Infusion Device into Superior Vena Cava, Percutaneous Approach (ICD-10-PCS; 2019-08-14)
PROC: 5A1945Z Respiratory Ventilation, 24-96 Consecutive Hours (ICD-10-PCS; 2019-08-14)
PROC: B41F1ZZ Fluoroscopy of Right Lower Extremity Arteries using Low Osmolar Contrast (ICD-10-PCS; 2019-08-15)
PROC: 4A023N7 Measurement of Cardiac Sampling and Pressure, Left Heart, Percutaneous Approach (ICD-10-PCS; 2019-08-15)
PROC: B2111ZZ Fluoroscopy of Multiple Coronary Arteries using Low Osmolar Contrast (ICD-10-PCS; 2019-08-15)
PROC: 0D9670Z Drainage of Stomach with Drainage Device, Via Natural or Artificial Opening (ICD-10-PCS; 2019-08-15)
PROC: 027034Z Dilation of Coronary Artery, One Artery with Drug-eluting Intraluminal Device, Percutaneous Approach (ICD-10-PCS; principal; 2019-08-15 11:30)
PROC: 3E0G76Z Introduction of Nutritional Substance into Upper GI, Via Natural or Artificial Opening (ICD-10-PCS; 2019-08-16)
DX: I22.2 Subsequent non-ST elevation (NSTEMI) myocardial infarction (principal); J96.21 Acute and chronic respiratory failure with hypoxia; I50.21 Acute systolic (congestive) heart failure; F33.9 Major depressive disorder, recurrent, unspecified; E87.2 Acidosis; G93.1 Anoxic brain damage, not elsewhere classified; I47.2 Ventricular tachycardia; Z51.5 Encounter for palliative care; Z66 Do not resuscitate; I21.4 Non-ST elevation (NSTEMI) myocardial infarction; I25.5 Ischemic cardiomyopathy; I46.2 Cardiac arrest due to underlying cardiac condition; R57.0 Cardiogenic shock; D75.1 Secondary polycythemia; I48.0 Paroxysmal atrial fibrillation; J84.112 Idiopathic pulmonary fibrosis; I11.0 Hypertensive heart disease with heart failure; G62.9 Polyneuropathy, unspecified; I35.0 Nonrheumatic aortic (valve) stenosis; C61 Malignant neoplasm of prostate; I25.10 Atherosclerotic heart disease of native coronary artery without angina pectoris; N40.0 Benign prostatic hyperplasia without lower urinary tract symptoms; F41.1 Generalized anxiety disorder; E78.5 Hyperlipidemia, unspecified; G47.33 Obstructive sleep apnea (adult) (pediatric); I25.2 Old myocardial infarction; R40.2362 Coma scale, best motor response, obeys commands, at arrival to emergency department; R40.2142 Coma scale, eyes open, spontaneous, at arrival to emergency department; R40.2252 Coma scale, best verbal response, oriented, at arrival to emergency department; Z79.02 Long term (current) use of antithrombotics/antiplatelets; Z79.82 Long term (current) use of aspirin; Z79.899 Other long term (current) drug therapy; Z95.5 Presence of coronary angioplasty implant and graft; Z87.891 Personal history of nicotine dependence; Z90.49 Acquired absence of other specified parts of digestive tract; Z98.890 Other specified postprocedural states; Z86.73 Personal history of transient ischemic attack (TIA), and cerebral infarction without residual deficits; Z98.42 Cataract extraction status, left eye; Z98.41 Cataract extraction status, right eye; Z88.8 Allergy status to other drugs, medicaments and biological substances; Z80.7 Family history of other malignant neoplasms of lymphoid, hematopoietic and related tissues; Z82.49 Family history of ischemic heart disease and other diseases of the circulatory system; Z80.3 Family history of malignant neoplasm of breast
CPT/HCPCS: 36415; 36556; 36600; 70450; 71045; 80048; 80053; 80061; 81001; 82565; 82803; 82805; 83036; 83735; 83880; 84100; 84484; 85025; 85610; 85730; 87070; 87205; 93005; 93306; 93458; 93970; 94002; 94003; 94640; 95816; 96365; 96375; 99291; C1874